=== PATIENT | male | born 1945 | race Caucasian/White ===

== ENCOUNTER 2017-02-05 01:39 | Day surgery (SDC) | payer MEDICARE ==
[~2017-02-05] VITALS: Ht 170.2 cm; Wt 55.2 kg
[2017-02-05] VITALS (9 sets, daily range): BP systolic 89–108; BP diastolic 56–66; PULSE 63–82; RESP 14–18; O2SAT 97–99
[~2017-02-05 01:39] MED LIST: CALC0.257 PO; LABE100T4 PO
[2017-02-05] MEDS ORDERED: 0.9% Sodium Chloride 1,000 ML ONE (08:33)
[2017-02-05] MEDS ORDERED: fentaNYL-PF 50 mCg/mL 2 mL Inj ONE (11:08)
[2017-02-05] MEDS ORDERED: Heparin 10,000 Unit/1,000 mL NS Premix IV ONE (11:08)
[2017-02-05] MEDS ORDERED: levoFLOXacin Inj 250 MG in IV Premix 1 EACH IV ONE (11:15)
--- NOTE | 2017-02-05 13:46 | DRSVH ---
PROCEDURE: NEPHROSTOMY TUBE EXCHANGE INDICATIONS: Ureteral obstruction TECHNIQUE: Informed, written consent from the patient was obtained prior to the procedure. Patient wa s brought to the angiography suite, and conscious sedation was administered intravenously by [facility] staff, while continuous cardiorespiratory monitoring was performed. Maximal sterile barrier t echnique, hand hygiene, skin preparation, and sterile ultrasound technique (if ultrasound was utilize d) was followed. A mask, sterile gown, sterile gloves, a large sterile sheet, hand hygiene, and 2% ch lorhexidine or iodine was utilized for skin antisepsis. The left nephrostomy and surrounding skin wer e prepped and draped sterilely. Contrast was injected into the nephrostomy catheter, which was exchan ged over a J-wire for a new 8 [place] pigtail catheter. Catheter was then fastened to the skin surface . FLUOROSCOPY TIME: 1 minutes COMPARISON: [facility], CT, CT CHEST ABD PELVIS W CON, 02/01/2017, 11:09. FINDINGS: Bilateral ureteral stents are present. Contrast injected into the left nephrostomy flows i nto the urinary bladder. At the conclusion of the procedure, the left nephrostomy pigtail is within t he renal pelvis. IMPRESSION: 1. Left nephrostomy exchange as described above. 2. Functional left ureteral stent. Dictated by: Gerardo De La Cruz M.D. on 02/05/2017 at 13:41 Approved by: Gerardo De La Cruz M.D. on 02/05/2017 at 13:45
--- NOTE | 2017-02-05 13:51 | NUR ---
PATIENT'S NEPHROSTOMY TUBE FLUSHED WITH 10CC NS.PT HAS DONE THIS BEFORE SO HE IS KNOWLEDGEABLE IN DOING THIS. SUPPLIES GIVEN TO PATIENT AND RX FOR STAYFIX DRESSING AND NEPHROSTOMY DRAINAGE BAG FAXED TO APPROPRIATE PHARMACIES. DISCHARGE INSTRUCTIONS REVIEWED WITH PT AND SPOUSE.
[2017-03-04] MEDS ORDERED: ATEZ1200 IV (09:56)
== END 2017-02-05 23:59 | disposition home or self-care (01) ==
LOC: SOUO 01:39
PROVIDERS: ATTEND Radiology Diagnostic Radiology
DX: Z43.6 Encounter for attention to other artificial openings of urinary tract (principal); N13.5 Crossing vessel and stricture of ureter without hydronephrosis; C67.9 Malignant neoplasm of bladder, unspecified; Z87.891 Personal history of nicotine dependence
CPT/HCPCS: 50435; 75984; 99152; C1729; C1769; J1644; J2250; J3010; Q9967

== ENCOUNTER 2017-03-17 18:50 | Inpatient (IN) | payer MEDICARE ==
[~2017-03-17] VITALS: Ht 170.2 cm; Wt 56.9 kg
[~2017-03-17 18:50] MED LIST changes: +ATEZ1200 IV; +Ketamine 10 mg/mL 20 mL Inj ONE; +Propofol 10,000 mCg/mL 20 mL Inj ONE; +Succinylcholine Chloride 20 mg/mL 5 mL Inj ONE; +fentaNYL-PF 50 mCg/mL 2 mL Inj ONE
[2017-03-17 18:57] VITALS: BP 104/62; PULSE 89; RESP 18; O2SAT 99
--- NOTE | 2017-03-17 19:15 | ED.REPORT ---
HPI-General Illness Date of Service Mar 17, 2017 ED Provider: Dr. Allen. 72 y/o male with a hx of bladder cancer (s/p removal of the tumor) and HTN presents to the ED complaining of abd pain and melena, onset 3 days ago. Associated sx include chest pain which radiates to his back and has been constant for a few months and right shoulder pain which makes it difficult for him to move his arm. Pt denies vomiting, hematemesis and is not on any blood thinners. Pt has not taken pepto-bismol. Nursing Notes Stated Complaint: POSSIBLE INTERNAL BLEEDING Chief Complaint: Male Abdominal Pain Nursing Notes Reviewed: Yes Allergies: Coded Allergies: Cephalosporins (Verified Allergy, Intermediate, Hives, 03/17/17) Penicillins (Verified Allergy, Intermediate, Nausea,Vomiting, 03/17/17) "MAKES HIM SICK", ABDOMINAL PAIN Scheduled Aspirin/Acetaminophen/Caffeine (Wevdrfx-Slwbrqrceozan-Plfp Tab) 250 Mg-250 Mg- 65 Mg Tablet 2 TABLET PO BIDWM Atezolizumab (Tecentriq) 1,200 Mg/20 Ml (60 Mg/Ml) Vial 1,200 MG IV q3w Calcitriol (Rocaltrol) 0.25 Mcg Capsule 0.25 MCG PO Q48 Dexamethasone (Dexamethasone) 4 Mg Tablet 4 MG PO DAILYWM Labetalol (Labetalol) 100 Mg Tablet 50 MG PO BID General Time Seen by MD: 19:14 Chief Complaint Abdominal pain Hx Obtained From: Patient Arrived By: Walk-in Sudden in Onset?: Yes Onset Occurred: 3 days ago Symptom Duration: Since onset Location: : Abdomen Quality: Painful Radiation: : Does not radiate Severity: Current: Moderate Severity: Maximum: Moderate Recent Healthcare: Recent doctor visit Past Medical History Past Medical History Notes: PCP: [facility] Rangel Past Medical History history of bladder cancer in 2009, s/p removal of the tumor Reports: Hypertension Past Surgical History removal of bladder tumor in 2009 bilateral urostomy secondary to obstructive uropathy Reports: Inguinal hernia repair Smoking History Former Smoker Social History Other Social History: Good social support, , Local resident Ambulatory Status Independent Review of Systems Full Review of Systems Constitutional: Reports: Weakness - generalized Respiratory: Reports: Shortness of breath Cardiovascular: Reports: Chest pain GI: Reports: Abdominal pain, Melena, Denies: Hematochezia, Vomiting Musculoskeletal: Reports: Joint pain (Right shoulder pain. ) Complete sys rev & neg: except as marked. Physical Exam Vital Signs Vital Signs Date Time Temp Pulse Resp B/P Pulse Ox O2 Delivery O2 Flow Rate FiO2 03/17/17 18:57 36.6 89 18 104/62 99 Room Air Initial VS: Reviewed Head / Eyes: Atraumatic, Normocephalic, PERRL ENT: Mucous membranes moist, Conjunctiva normal, No scleral icterus Neck: Supple, Full range of motion Cardiovascular: Regular rate & rhythm, Heart sounds normal, Intact distal pulses Extremities: Vascular intact, Neuro intact, No swelling, No tenderness Skin: Warm, Dry, No cyanosis Neurologic: Alert, Oriented, Nonfocal Psychiatric: Mood/affect normal, Behavior normal, Normal thought content General/Constitutional: Awake, Alert, Cooperative Appearance / Presentation: Positive: Cachectic, Frail Respiratory / Chest: Breath sounds NL, Breath sounds = bilat, No respiratory distress Right chest wall tenderness Abdomen: Atraumatic, Soft Diffuse tenderness nephrostomy tube Back: Atraumatic, Full range of motion Upper Extremities Upper Extremity / MS: Atraumatic, Full range of motion Painful with movement of R shoulder and tender to touch. Lower Extremity / Pelvis / MS: Atraumatic, Full range of motion, No edema Male Genitourinary: Atraumatic Pt has a nephrostomy tube. Rectal for Blood: Positive: Blood - occult heme +, Melena present (black stool) Interpretation & Diagnostics Lab Results Interpretation Result Diagram: 03/17/17203503/17/171929 Test 03/17/17 19:30 03/17/17 20:36 03/17/17 22:15 White Blood Count 9.6th/mm3 (3.8-10.1) Red Blood Count 3.43mil/mm3 (4.40-5.80) Mean Corpuscular Volume 91.3fL (81-100) Mean Corpuscular Hemoglobin 26.2pg (27.0-35.0) Mean Corpuscular Hemoglobin Concent 28.8% (32.0-37.0) Red Cell Distribution Width 20.9% (12.3-15.4) Platelet Count 334bil/L (150-400) Neutrophils (%) (Auto) 96.7% (40-74) Lymphocytes (%) (Auto) 1.8% (14-46) Monocytes (%) (Auto) 1.3% (4-12) Eosinophils (%) (Auto) 0% (0-5) Basophils (%) (Auto) 0% (0-3) Prothrombin Time 10.3sec (8.1-12.5) Prothromb Time International Ratio 0.96ratio Sodium Level 136mEq/L (134-144) Potassium Level 4.7mEq/L (3.5-5.2) Chloride Level 98mEq/L (97-108) Carbon Dioxide Level 21mmol/L (18-29) Blood Urea Nitrogen 50mg/dL (8-27) Creatinine 1.61mg/dL (0.76-1.27) Estimat Glomerular Filtration Rate 45mL/min (>59) Glucose Level 257mg/dL (60-99) Calcium Level 9.9mg/dL (8.5-10.1) Magnesium Level 2.1mg/dL (1.6-2.6) Total Bilirubin 0.2mg/dL (0.0-1.2) Aspartate Amino Transf (AST/SGOT) 13U/L (0-50) Alanine Aminotransferase (ALT/SGPT) 9U/L (0-44) Alkaline Phosphatase 159U/L (25-160) Troponin T 0.017ug/L (0.0-0.011) Pro-B-Type Natriuretic Peptide 756.1pg/mL (0-376) Total Protein 6.4g/dL (6.4-8.4) Albumin 3.3g/dL (3.4-5.0) Lipase 19U/L (13-60) Hold Lopez Top Tube Received (Received) Hemoglobin 7.2g/dL (13.8-17.2) Hematocrit 25.4% (41.0-50.0) Hold Urine Received (Received) ECG Interpretation ECG Interpretation: Sinus Rhythm non specific ST changes and low voltage. Rate 57. Time: 20:14 Interpreted by: ED physician ECG Interpretation: Sinus Rhythm non specific ST changes and low voltage. Rate 57. Time: 20:28 Interpreted by: ED physician X-Ray Chest Interpretation Chest Xray Interpretation: IMPRESSION: 1. Small nodular opacity in the left apex measuring approximately 1 cm. The finding is nonspecific but new from the prior study. The differential includes confluent bony structures as well as neoplasm or atypical infection. Recommended a repeat PA and lateral study when clinically feasible. Dictated by: Mikhail Harris M.D. on 03/17/2017 at 20:08 Approved by: Mikhail Harris M.D. on 03/17/2017 at 20:10 View: Portable, 1 view Interpretation / Wet Read by: Interpret - Radiologist CT Chest Interpretation IMPRESSION: 1. Moderate amount of pneumoperitoneum within the visualized upper abdomen consistent with viscus perforation. This may be secondary to a perforated mass in the region of the gastric antrum. Recommend further evaluation with dedicated abdominal CT. 2. No evidence of pulmonary embolism. 3. Increase in size of multiple bilateral pulmonary nodules consistent with progression of metastatic disease. 4. Progression of osseous metastatic disease most prominent within the upper thoracic spine and associated mild endplate compression fractures of T2. Findings discussed with Dr. Reeder on 03/17/17 at 10 PM. Dictated by: Mikhail Harris M.D. on 03/17/2017 at 21:57 Study type: CT pulm angiogram Interpretation / Wet Read by: Interpret - Radiologist Re-Eval/Medical Decision Med Decision/Clinical Course Initially reported having melena with a a low hemoglobin, initiated transfusion while in the ER and plan on admission however patient had paroxysmal right shoulder pain with shortness of breath that seem debilitating and was concerning of pulmonary embolism, which ultimately showed perforated viscous. Patient will be admitted and taken to the operating room. IV meropenum given Source of Hx: Family Time of Eval: 20:14 Re-Evaluation/Progress Note: Reckeched pt and informed them of the plan to admit. Pt and his family understand and agree with the plan. Time of Eval: 20:30 Re-Evaluation/Progress Note: Pt writhing on the bed complaining of severe R shoulder pain. Repeat ekg is unchanged. Added a CT angio of his chest. Time of Eval: 21:02 Re-Evaluation/Progress Note: Pt consented for blood transfusion. Time of Eval: 21:08 Re-Evaluation/Progress Note: Pt rechecked. Pt reports increased shoulder pain and SOB. Ordered pain meds. Time of Eval: 22:11 Re-Evaluation/Progress Note: Rechecked pt who feels better after the pain meds. Discussed lab, CT and X-ray results. Discussed code status with pt and family. He is full code. Informed pt of need for admission. Pt and his family understand and agree with plan for admission.All questions addressed. Consultation #1: Referral / Consult Name: Edin Montgomery MD Call Returned at: 20:47 Note: Dr. Montgomery GI, agrees with the eval and will see the pt in the morning. Consultation #2: Referral / Consult Name: Sherman Duron MD Consulted With: Surgeon Call Returned at: 22:25 Cutter Aluminum Sheet: Agrees with eval Note: Updated pt's imaging. Consultation #3: Referral / Consult Name: Kalyani Armenta DO Consulted With: Hospitalist Call Returned at: 23:19 Cutter Aluminum Sheet: Will see patient, Agrees with eval, Agrees with plan, Accepts admit Counseled Regarding: Diagnosis, Lab results, Need for admission Discharge & Departure Primary Impression: Perforated viscus Disposition: ADMITTED TO HOSPITAL Discharge Condition All VS Reviewed: Yes Referrals: Ben Ferrari MD (PCP) Crit Care Except Billable Proc Time Spent: 75-104 minutes Services Performed: Patient management by me, Time spent at bedside, Reviewing test results, Reviewing imaging, Discussing patient care, Documentation in record, Time with fam/surrogate Critical Care Notes: See MDM Scribe Attestation Portions of this note were transcribed by Mandi Brice and Yuly Magallon. I, personally performed the history, physical exam and medical decision-making;I reviewed and confirmed the accuracy of the information in the transcribed note. Signed by Mandi Brice and Yuly Magallon, Scribe. 03/17/17 4504. copies to: Ben Ferrari MD, Timothy S DO Mar 17, 2017 19:15 Mandi Brice Mar 17, 2017 19:31 Yuly Magallon Mar 17, 2017 22:55
[2017-03-17] MEDS ORDERED: 0.9% Sodium Chloride 1,000 ML IV ONE (19:31)
[2017-03-17] MEDS ORDERED: Pantoprazole 4 mg/mL 10 mL Inj IVPUSH ONE (19:35)
[2017-03-17] MEDS ORDERED: Pantoprazole Inj 80 MG, Pharmacy To Mix 1 EA in 0.9% Sodium Chloride 80 ML IV ONE ×2 (19:35)
[2017-03-17] MEDS ORDERED: Ondansetron 2 mg/mL 2 mL Inj IVPUSH PRN (19:50)
[2017-03-17 19:59] LABS: BASOPHILS % (AUTO) 0 % (0-3); EOSINOPHILS % (AUTO) 0 % (0-5); Mean Corpuscular Volume 91.3 fL (81-100)
[2017-03-17 20:02] LABS: MONOCYTES % (AUTO) 1.3 % (4-12); Mean Corpuscular Hemoglobin 26.2 pg (27.0-35.0); NEUTROPHILS % (AUTO) 96.7 % (40-74); Platelet Count 334 bil/L (150-400)
--- NOTE | 2017-03-17 20:12 | DRSVH ---
PROCEDURE: X-RAY CHEST ONE VIEW, PORTABLE ([id number]) INDICATIONS: chest pain TECHNIQUE: One view of the chest was acquired. COMPARISON: [facility], , CHEST 1 VIEW, 03/08/2010, 14:22. FINDINGS: Surgical changes and devices: None. Lungs and pleura: No pleural effusions or pneumothorax. There is a skin fold projecting over the ri ght hemithorax laterally. There is a small nodular opacity in the left apex measuring approximately 1 cm. No acute consolidation elsewhere. Mediastinum: Mediastinal contours appear normal. Heart size is normal. Bones and chest wall: No suspicious bony lesions. Overlying soft tissues appear unremarkable. IMPRESSION: 1. Small nodular opacity in the left apex measuring approximately 1 cm. The finding is nonspecific but new from the prior study. The differential includes confluent bony structures as well as neoplas m or atypical infection. Recommended a repeat PA and lateral study when clinically feasible. Dictated by: Mikhail Harris M.D. on 03/17/2017 at 20:08 Approved by: Mikhail Harris M.D. on 03/17/2017 at 20:10
[2017-03-17 20:16] LABS: INR 0.96 ratio
[2017-03-17 20:20] LABS: Magnesium 2.1 mg/dL (1.6-2.6)
[2017-03-17] MEDS: 0.9% Sodium Chloride 1,000 ML IV SCH (21:15)
[2017-03-17] MEDS ORDERED: Meropenem Inj 1,000 MG in IV Premix 1 EACH IV ONE (22:05)
[2017-03-17] MEDS ORDERED: Meropenem Inj 1,000 MG in 0.9% Sodium Chloride 100 ML IV ONE (22:09)
--- NOTE | 2017-03-17 22:12 | DRSVH ---
PROCEDURE: CT ANGIO CHEST PULMONARY EMBOLISM ([id number]) INDICATIONS: Chest pain and bladder cancer. TECHNIQUE: After the administration of intravenous contrast, 2 mm thick sections acquired from the pulmonary api ayah to the posterior costophrenic angles. 3-dimensional maximum intensity projection (MIP) coronal a nd sagittal reformats were then acquired through the thorax. For radiation dose reduction, the follo wing was used: automated exposure control, adjustment of mA and/or kV according to patient size. COMPARISON: [facility], CT, CT CHEST ABD PELVIS W CON, 02/01/2017, 11:09. FINDINGS: Image quality: Excellent. Pulmonary arteries: Pulmonary arteries are normal in size, and demonstrate no intraluminal filling d efects to suggest central pulmonary embolism. Lungs and pleura: There are multiple bilateral pulmonary nodules with an upper lobe predominance whic h appear increased in size compared to the prior study. A access services representative nodule in the left apex devang sures up to 1.1 cm compared to 0.9 cm previously. There is also a access services representative nodule in the left lower lobe measuring up to 1.6 cm compared to 1.2 cm previously. No acute consolidation. No pleural effusions or pneumothorax. Central and peripheral airways are patent. Mediastinum: Heart size is normal, but a small pericardial effusion. No mediastinal or hilar adenop athy. Thoracic aorta is normal in caliber and enhancement. Esophagus is normal in caliber, without hiatal hernia. Bones and chest wall: There are multiple lytic osseous lesions redemonstrated including throughout t he thoracic spine but most prominent at T1-T3. There are associated mild endplate compression fractu res at T2. No retropulsed bony fragments. Findings are increased compared to the prior study. Thyr oid gland is partially visualized with no discrete nodule identified. No axillary or supraclavicular adenopathy. Abdomen: Visualized upper abdomen demonstrates a moderate amount of pneumoperitoneum. There is soft tissue thickening in the region of the gastric antrum which is not well valuated given the arterial phase of imaging and absence of oral contrast. IMPRESSION: 1. Moderate amount of pneumoperitoneum within the visualized upper abdomen consistent with viscus pe rforation. This may be secondary to a perforated mass in the region of the gastric antrum. Recommen d further evaluation with dedicated abdominal CT. 2. No evidence of pulmonary embolism. 3. Increase in size of multiple bilateral pulmonary nodules consistent with progression of metastati c disease. 4. Progression of osseous metastatic disease most prominent within the upper thoracic spine and asso ciated mild endplate compression fractures of T2. Findings discussed with Dr. Reeder on 03/17/17 at 10 PM. Dictated by: Mikhail Harris M.D. on 03/17/2017 at 21:57 Approved by: Mikhail Harris M.D. on 03/17/2017 at 22:10
[2017-03-17] MEDS ORDERED: DXM4T PO (22:55)
[2017-03-17] MEDS ORDERED: ASPI-1148 PO (22:55)
[2017-03-18] VITALS (14 sets, daily range): BP systolic 88–105; BP diastolic 59–80; PULSE 84–108; RESP 11–18; O2SAT 94–100
--- NOTE | 2017-03-18 00:11 | CONS ---
[address] [address] CONSULTATION REPORT PATIENT: MARTIN MARIN : 1945 MR#: [id number] ADMIT: 03/17/2017 JOB ID: [id number] DATE OF SERVICE: 03/17/2017 CHIEF COMPLAINT: Likely perforated viscus. HISTORY OF PRESENT ILLNESS: The patient is a 72-year-old male with metastatic bladder cancer who is receiving immunotherapy, who presented to the emergency department today on the advice of his oncologist due to 2-3 day history of black stools. The patient's history dates back to bladder cancer back in 2009 with recurrence in 2015, and since then has been undergoing chemoradiation since May 2016 and now he is on immunotherapy. Despite his treatment there has been progression of disease with metastatic disease to his lung and bone. The patient was given steroids for the past two weeks to help with his appetite. The patient has lost approximately 40 pounds since 2016 and his BMI is now 17. The patient denies any nausea, vomiting or hematemesis. He has not been eating well, but he has been having upper abdominal pain for the past several days and also bilateral shoulder pains for the past couple of months. Workup in the emergency department included a CT scan of the chest that demonstrated moderate pneumoperitoneum. The patient has undergone a CT scan of the abdomen and pelvis, however, the results are still pending at this time. I was contacted by the emergency department physician for evaluation. PAST MEDICAL HISTORY: Bilateral nephrostomy tubes with now just the left one still in place, bladder cancer resection in 2009, and a ventral hernia repair at the same time, hypertension, chemoradiation for the recurrent bladder cancer and immunotherapy. MEDICATIONS AT HOME: Include: 1. Aspirin. 2. Tecentriq. 3. Rocaltrol. 4. Decadron 4 mg. 5. Labetalol. ALLERGIES: 1. PENICILLIN. 2. CEPHALOSPORIN. SOCIAL HISTORY: The patient is . He has been to his for 52 years. He has a son and a daughter. They live on [address]. He is a nonsmoker. FAMILY HISTORY: Positive for bladder cancer. REVIEW OF SYSTEMS: Positive for the upper abdominal pain, shoulder pain and the black stool for the past several days. PHYSICAL EXAMINATION: The patient is currently on the emergency department gurney, in some distress due to the abdominal pain. Temperature 36.6, blood pressure 104/62, pulse is 89, respirations 18. Head is normocephalic, atraumatic. There is no scleral icterus. Neck is supple. Heart is in regular rate. Lungs are clear. Abdomen is not distended. It is not tender in the lower quadrants, however, tender in the epigastric and left subcostal area. Extremities do show some clubbing of his fingertips. Neurologically, patient is awake and alert, and was able to answer some questions. He appears thin and emaciated. LABORATORY EXAMINATION: Showed a white blood count of 9.6, hematocrit 31.3, which went down to 25.4, and platelet count is 334. Sodium was 136, potassium 4.7, creatinine 1.61, glucose was 257, total bilirubin of 0.2, lipase of 19. INR is 0.961. ASSESSMENT: This is an unfortunate 72-year-old male with progressive metastatic bladder cancer who has pneumoperitoneum consistent with a perforated viscus. Discussion with the patient and his in terms of proceeding to surgery or choosing conservative care or palliative care. I believe they have made a decision to proceed to surgery. I will await for the reading of the CT scan of the abdomen and pelvis. I will plan on doing an upper endoscopy and a laparotomy tonight. The patient will be started on IV antibiotics. Patient's postop mortality and complication risk is high and prognosis is poor. EARL
[2017-03-18] MEDS ORDERED: Ondansetron 2 mg/mL 2 mL Inj IVPUSH PRN (02:40)
[2017-03-18] MEDS ORDERED: Propofol 10,000 mCg/mL 100 mL Inj ONE (02:59)
[2017-03-18] MEDS ORDERED: fentaNYL 2,500 mCg/250 mL Premix IV ONE (02:59)
[2017-03-18] MEDS ORDERED: Acetaminophen IV 1,000 MG in IV Premix 1 EACH IV PRN (03:00)
[2017-03-18] MEDS ORDERED: Polyethylene Glycol (PEG) 17 Gm Powder PO PRN (03:00)
[2017-03-18] MEDS ORDERED: Senna-Docusate 8.6-50 mg Tablet PO PRN (03:00)
[2017-03-18] MEDS ORDERED: Alum-Mag Hydrox-Simeth 30 mL Suspension PO PRN (03:00)
--- NOTE | 2017-03-18 03:00 | NUR ---
Admit: Pt admitted from OR post-op closure of gastric perf. Pt's vital signs stable. Left a-line present, inserted in OR. Pt has midline incision, drsg which is c/d/i with left abd LIZY drain. LIZY drain is draining serosanquineous fluid. Pt also has a prexisting left posterior nephrostomy tube, draining cloudy, foul smelling urine. Pt is very cachectic but no open areas noted. PIV x1 with new IV started in right AC. Will continue to monitor pt closely.
[2017-03-18] MEDS: fentaNYL 2,500 mCg/250 mL 2,500 MCG in IV Premix 1 EACH IV SCH (03:05)
[2017-03-18] MEDS: Propofol Inj 1,000,000 MCG in IV Premix 1 EACH IV SCH (03:05)
--- NOTE | 2017-03-18 03:13 | OP ---
[address] [address] OPERATIVE REPORT PATIENT: MARTIN MARIN : 1945 MR#: [id number] ADMIT: 03/17/2017 JOB ID: [id number] DATE OF SURGERY: 03/18/2017 SURGEON: Sherman Duron MD. EXTENSION SERVICE SPECIALIST IN CHARGE: Megan Anderson ANESTHESIA: General. PREOPERATIVE DIAGNOSIS(ES): Perforated viscus. POSTOPERATIVE DIAGNOSIS(ES): Perforated distal gastric ulcer. OPERATIVE PROCEDURE: An esophagogastroduodenoscopy, laparotomy, patch closure of gastric perforation. INDICATION FOR PROCEDURE: The patient is a 72-year-old male with metastatic bladder cancer who has pneumoperitoneum. PRINCIPAL FINDING: From the EGD there was a large ulcer visualized at the distal stomach. I was not sure if this was in the antrum or in the pylorus, however from the laparotomy it was a distal gastric perforation anteriorly and this was closed using a Branden patch technique. PROCEDURE COURSE: The patient was brought to the operating table and was provided with general endotracheal anesthesia. The patient had received IV antibiotics from the emergency room. The patient was provided with SCDs. A time-out was performed. We started with the upper endoscopy. The endoscope was then passed through the patient's oropharynx and into the esophagus and into the stomach. Copious retained fluid was aspirated. There is no obvious fundic lesions in the body of the stomach. Advancing towards the antrum I was able to visualize a large ulcer that appeared white and I was not able to decipher if I have an actual opening to the peritoneal cavity. I was able to pass the scope through the pylorus, into the duodenum, which appeared to be normal. The scope was then retracted from the patient, and patient was then positioned for laparotomy. A time-out again was performed. The patient's abdomen was prepped and draped in the usual sterile fashion. Next, an upper midline incision was made using the scalpel and subcutaneous tissue was entered using electrocautery. The peritoneum was entered without incident. Next inspection shows that there was an obvious anterior perforation at the distal stomach in the prepyloric region. I was able to mobilize a piece of omentum and using 3 interrupted Vicryl sutures I tacked this piece of omentum onto the perforated site. This was secured in place using the Vicryl suture. Next, copious irrigation was carried out from the right upper quadrant and also from the left upper quadrant. There was a lot of whitish fibrinous exudate that was able to be extracted. Inspection of the pelvis shows that there was not much spillage. After copious irrigation, we decided to place a Logan-Chambers drain. This was introduced through the left upper quadrant abdominal wall and placed across the body of the stomach and going into the right upper quadrant adjacent to the liver. The drain was secured in place using a nylon suture. Next, the upper midline fascia was then reapproximated using a running 0-PDS suture. Next, the subcu was then irrigated and the skin was closed using an absorbable suture. Steri-Strips and sterile dressing was then placed over the wound. By the end of procedure, needle counts, and sponge counts were correct. The patient will remain intubated and be taken to the Intensive Care Unit. EARL
[2017-03-18 03:20] LABS: BASOPHILS % (AUTO) 0.1 % (0-3); EOSINOPHILS % (AUTO) 0 % (0-5); MONOCYTES % (AUTO) 4.8 % (4-12); Mean Corpuscular Hemoglobin 27.4 pg (27.0-35.0); Mean Corpuscular Volume 87.4 fL (81-100); NEUTROPHILS % (AUTO) 93.1 % (40-74); Platelet Count 323 bil/L (150-400)
[2017-03-18] MEDS: 0.9% Sodium Chloride 1,000 ML IV SCH ×5 (03:29→18:58)
[2017-03-18 04:23] LABS: Magnesium 1.8 mg/dL (1.6-2.6); Phosphorus 3.8 mg/dL (2.5-4.9)
--- NOTE | 2017-03-18 04:36 | ABG ---
DateTimeAnalyzed 04:32:00 -_ pH ____7.363 - 7.350 7.450 pCO2 ___37.9__ -mmHg 35.0 45.0 pO2 149 -mmHg 69.0 116 HCO3- ___21.0__ -mmol/L 22.0 26.0 ABE ___-3.4__ -mmol/L -2.0 2.0 tHb ___13.4__ -g/dL O2Hb ___97.2__ -% COHb ____1.3__ -% MetHb ____0.9__ -% sO2 ___99.4__ -% FIO2 ___60.0__ -% PRVC 418 - PEEP ____5.0__ -cmH2O Set_RR ___15.0__ -b/min Vt __400.0__ -L Drawn By RB - Spontaneous_RR ___15.0__ -b/min Oxygen Device 1 VENTILATOR - Notified By RB - Notified Whom Judith R, RN - B 760 -mmHg tO2 ___18.6__ -Vol% Ian test N/A -
--- NOTE | 2017-03-18 04:54 | PCM.HPMED ---
Subjective Date of Service Mar 18, 2017 Primary Provider: Admitting Physician: Kalyani Armenta DO Primary Care Physician: Ben Ferrari MD Attending Physician: Kalyani Armenta DO Admit Status: Critical Care Chief Complaint: Abdominal pain, melena, chest pain History of Present Illness: Mr. 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 Evaluation in the ED with stat imaging revealed that he had a perforated viscus that required emergent intervention. He was admitted to CCU for evaluation and treatment of perforated distal gastric ulcer status post EGD, exploratory laparotomy with patch closure. Hospital day 1, postop day 0, ventilator day one. Mr. Fields was initially seen in the ED, and was experiencing a significant amount of pain and discomfort, and was unable to answer many questions. and family were present at that time, and were discussing the possibility of proceeding with surgical intervention to correct his perforated viscus. The noted that she and her had not discussed whether or not he would wish to remain on a ventilator for a prolonged period of time. After much consideration and discussion with the anesthesiologist and surgeon, the family and patient elected to proceed with the emergent procedure. At time of initial evaluation, the patient was quite uncomfortable in his bed and unable to keep focused to answer many questions. Family present was notably upset over the current conditions and need for emergent procedure. Initial documentation indicated that the patient had been experiencing dark stools and increased abdominal pain over the recent days leading to admission. He has an extensive history of malignancy, which is followed by Dr. Atkins, [facility] oncology, with most recent visit dated 03/04/17. Documentation within [facility] also indicate the patient has lost a significant amount of weight, approximately 20% loss within the most recent 4 months. In the ED, temperature 36.6, pulse 89, respiratory rate 18, blood pressure 104/ 62, 99% on room air; initial lab work revealed white count of 9.6 with 97% neutrophils, hemoglobin 9.0 which was later found to be 7.2 approximately 1 hour after initial draw; creatinine 1.61, glucose 257, albumin 3.3; troponin 0.017. He received meropenem, as he has an allergy to penicillins and cephalosporins. This was continued. Stat CT of the chest revealed moderate amount of pneumoperitoneum within the visualized upper abdomen, consistent with viscus perforation. 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 Stat abdomen and pelvis CT was also obtained, the final report pending. Operative report dated 03/18/2017 shows that an EGD visualized a large ulcer in the distal stomach which had perforated, and was closed with Branden patch technique. During the procedure, patient did not require any additional pressor agents to maintain blood pressure. He was stable throughout. He was transferred to CCU in stable condition intubated and sedated without any additional pressor requirements. Review of Systems: Could not be obtained; currently intubated and sedated Allergies Coded Allergies: Cephalosporins (Verified Allergy, Intermediate, Hives, 03/17/17) Penicillins (Verified Allergy, Intermediate, Nausea,Vomiting, 03/17/17) "MAKES HIM SICK", ABDOMINAL PAIN Home Medications Aspirin/Acetaminophen/Caffeine (Zkpgdue-Xdobsygbmzoad-Nmbs Tab) 250 Mg-250 Mg- 65 Mg Tablet 2 TABLET PO BIDWM Atezolizumab (Tecentriq) 1,200 Mg/20 Ml (60 Mg/Ml) Vial 1,200 MG IV q3w Calcitriol (Rocaltrol) 0.25 Mcg Capsule 0.25 MCG PO Q48 Dexamethasone (Dexamethasone) 4 Mg Tablet 4 MG PO DAILYWM Labetalol (Labetalol) 100 Mg Tablet 50 MG PO BID Could not be verified with patient, as he is intubated and sedated. Med rec will need to be completed. PMH Transitional cell carcinoma of the urinary bladder status post tumor removal with associated pulmonary metastases Hypertension Complicated urinary tract infection Surgical History Left inguinal hernia repair Nephrostomy tube placement on left with ureteral stent Family History Per documentation: Mother had sudden at age 75, father of "old age" at age 93. No reported family history of cancer Social History Occupation: retired Hx Alcohol Use: No Hx Substance Use: No Hx Tobacco Use: Yes Smoking Status: Former Smoker (quit greater than 10 years ago) Living Arrangement: with Family (local, with ) Exam Vital Signs Vital Sign - Last Date Time Temp Pulse Resp B/P Pulse Ox O2 Delivery O2 Flow Rate FiO2 03/17/17 18:57 36.6 89 18 104/62 99 Room Air Intake and Output 03/17/17 03/17/17 03/18/17 Cumulative From/Thru 15:00 23:00 07:00 03/17/17 18:57 - 03/18/17 00:00 Intake Total 1000 ml 1000 ml 2000 ml Balance 1000 ml 1000 ml 2000 ml Intake IV Total 1000 ml 1000 ml 2000 ml Exam General: Intubated and sedated; no acute distress; cachectic HEENT: Atraumatic, temporal wasting, sclera anicteric, ETT in place with OG tube Cardiac: Tachycardic at time of examination with rate approximately 110 bpm, no murmur appreciated Chest: Significantly thinned with the rib prominence Respiratory: Adequate airflow all brown, R > L faint coarse sounds appreciated Abdomen: Soft, bandage in place over vertical incision which is clean, dry and intact; coloration of chlorhexidine prep; abdominal drain in place and secured; nephrostomy tube and bag attachment also in place and secured Extremities: Spontaneous movement of all 4 extremities as sedation was wearing off upon transport to room; radial pulses equal and intact; thin Skin: Warm and dry : No Pavon Neuro: Unable to assess secondary to sedation Psych: Unable to assess secondary to sedation Lab and Diagnostics Result Diagram: 03/17/17203503/17/171929 Assessment & Plan Mr. 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 Evaluation in the ED with stat imaging revealed that he had a perforated viscus that required emergent intervention. He was admitted to CCU for evaluation and treatment of perforated distal gastric ulcer status post EGD, exploratory laparotomy with patch closure. Hospital day 1, postop day 0, ventilator day one. Perforated gastric ulcer status post exploratory laparotomy, washout, Branden patch application, and drain placement, acute, present on admission. Under therapy - Postop day 0; tolerated procedure well without complications - Drain in place - Surgery is following; appreciate time and recommendations for continued care - Continued meropenem secondary to allergies to cephalosporins and penicillins; tolerated in ED well, ID consult by AM team - MRSA swab pending - Blood cultures pending - PCT in am Acute hypoxemic respiratory failure, not present on admission. Ongoing - Patient was saturating well on room air at time of admission, but unable to be weaned off ventilator postoperatively - It was decided for patient safety that he remain intubated postoperatively for transfer to CCU - We will defer plan for extubation to pulmonary team - Consult for pulmonary team placed; please contact team in morning for verbal report Acute anemia status post 2U pRBC, present on admission. Monitor - On admit: Hb 9.0, decreased to 7.2; received 2 units packed red blood cells prior to OR - Repeat hemoglobin: 13.3 postoperatively - Monitor and transfuse as needed Severe protein calorie malnutrition, chronic. Ongoing - On admit: BMI 17 - Dietary consultation Left nephrostomy tube and ureteral stent placement, chronic. Presumed stable - No Pavon in place as patient has nephrostomy tube - Monitor output Chronic kidney failure. Presumed stable - On admit: Cr 1.61; repeat postop 1.28 - Monitor Goals of care. - Patient has terminal illness - He is currently intubated and sedated - Family was upset ED about severity of his illness, and stated that they had never spoken with patient about ventilation and complications of his illness that could be dire - Palliative care consult for goals of care discussion, POLST completion - Polisher Brass referral as well - DVT: SCDs only at this time as patient was actively bleeding earlier - GI: PPI - Diet: Nothing by mouth at this time; dietary consult placed - PRN: Ear/bowel/pain/antiemetic - CODE STATUS: Full code at this time Patient status: Due to severity of presenting symptoms, risk of adverse events, and likely course of care, anticipated length of stay exceeds to midnight; patient is admitted as inpatient with CCU status Pain Evaluation: Adequate Pain Control GI Prophylaxis: Proton Pump Inhibitor VTE Prophylaxis: SCDs Resuscitation Status: CPR: Attempt Resuscitation Attending Statement The patient was seen and examined together with house staff on 03/18/2017 and I agree with the history, exam and plan as outlined in the note above. Meenakshi Boland DO Mar 18, 2017 03:09 Kalyani Armenta DO Mar 18, 2017 06:29
[2017-03-18] MEDS: Chlorhexidine 0.12% 15 mL Oral Solution MT SCH ×5 (05:12→19:54)
[2017-03-18] MEDS ORDERED: Pantoprazole 4 mg/mL 10 mL Inj IVPUSH SCH (07:30)
[2017-03-18] MEDS ORDERED: Sodium Bicarb (50 mEq) 8.4% 1 mEq/mL 50 mL Syringe IVPUSH ONE (07:35)
--- NOTE | 2017-03-18 09:10 | DRSVH ---
PROCEDURE: CT ABDOMEN AND PELVIS WITHOUT CONTRAST ([id number]) INDICATIONS: pneumoperitoneum TECHNIQUE: After the administration of oral contrast, 5 mm thick sections acquired from the diaphragms to the sy mphysis. 5 mm coronal and sagittal reformats were performed. For radiation dose reduction, the foll owing was used: automated exposure control, adjustment of mA and/or kV according to patient size. COMPARISON: [facility], CT, CT CHEST ABD PELVIS W CON, 02/01/2017, 11:09. [facility], CT, CT ANGIO CHEST PE, 03/17/2017, 21:32. Outside Film, CT, CT ABD PELVIS WO CON, 05/14/2016 , 13:17. FINDINGS: Image quality: Excellent. ABDOMEN: Lung bases: Lung bases are clear. Heart size is normal. Solid organs: Liver and spleen are normal in size. Gallbladder is normal. Pancreas is normal in si ze. No adrenal nodules. There is a percutaneous nephrostomy on the left. In addition, there are todd ateral ureteral stents. Both kidneys are normal in size. There is mild left renal pelviectasis. Excr eted contrast is present in the renal collecting system bilaterally. Peritoneum and bowel: There is moderate pneumoperitoneum with free air around liver and left upper a bdomen. Stomach is distended. Small ball loops and colon loops contain no oral contrast and demonstra te normal wall thickness and caliber. A large amount of stool throughout the colon. Nodes and vessels: There is a 2.6 x 2.2 cm aortocaval lymph node, and smaller para-aortic lymph node on the left measuring up to 1.8 cm, suspicious for metastases. Aorta and inferior vena cava are norm al in size. There is severe atherosclerosis. There is intimal displacement and distal aorta suggesti ng a small focal dissection. Miscellaneous: No ventral hernias. PELVIS: Genitourinary: Bladder is irregular and thickened consistent with bladder neoplasm.. Miscellaneous: No inguinal hernias or adenopathy. Bones: There are lytic bone lesions involving T1 and T2 vertebral bodies, as well as right iliac bone consistent with metastasis. No vertebral body compression fractures. IMPRESSION: 1. Moderate amount of free peritoneal air in the upper abdomen consistent with viscus perforation. Th e site of perforation is not definitively visualized. The most likely cause of perfusion is gastric o r duodenal ulcer. 2. Retroperitoneal adenopathy consistent with metastasis. 3. The regular appearance of bladder compatible with neoplasm. 4. Bilateral ureter stents. There is a left percutaneous nephrostomy. Mild left pelviectasis. 5. Lytic metastasis involving lumbar spine and right hemipelvis. 6. Extensive atherosclerosis. There is intimal displacement and distal abdominal aorta suspicious for focal dissection. 7. A large amount of stool in colon. Dictated by: Jade Zurita M.D. on 03/18/2017 at 8:48 Approved by: Jade Zurita M.D. on 03/18/2017 at 9:09
--- NOTE | 2017-03-18 09:26 | PCM.PNSURG ---
Subjective Date of Service: Mar 18, 2017 Date of Service: Mar 18, 2017 Visit Information: Reason for Visit Perforated Viscus,Gi Bleed,Anemia,Cancer Surgery/Surgery Date Post-Op Day # Date of Admission: Mar 17, 2017 at 22:54 Hospital Day # Subjective: Mr. Bradly Fields was lying in bed, intubated. Patient alert, responds to questions of pain with a shake of his head, hands in soft restrains. Objective Vital Sign- Last 8 Hours Date Time Temp Pulse Resp B/P Pulse Ox O2 Delivery O2 Flow Rate FiO2 03/18/17 07:40 108 95/68 97 40 03/18/17 04:30 36.6 108 15 88/63 99 Mechanical Ventilator 60 03/18/17 04:30 Ventilator 03/18/17 03:15 94 100 Intake and Output- Last 8 Hour 03/18/17 Cumulative From/Thru 07:00 03/17/17 18:57 - 03/18/17 06:29 Intake Total 1410 ml 2410 ml Output Total 555 ml 555 ml Balance 855 ml 1855 ml Intake IV Total 1410 ml 2410 ml Output Urine Total 525 ml 525 ml Gastric Drainage Total 0 ml 0 ml Drainage Total 30 ml 30 ml # Bowel Movements 0 0 General: Alert, Cooperative, No Acute Distress Lungs: Clear to Auscultation, Normal Air Movement, Other (intubated) Heart: Exam Unremarkable, Regular Rate/Rhythm Abdomen: Soft, Appropriately tender, Other (bertrand drain and nephrostomy tubes intact. ) Result Diagram: 03/18/17 0300 03/18/17 0300 Assessment & Plan Impression Status post Day #1 esophagogastroduodenoscopy, laparotomy, patch closure of gastric perforation. Problems: Plan The patient is a 72-year-old male with metastatic bladder cancer who has pneumoperitoneum, status post day #1 laparotomy and patch closure of gastric perforation. Patients pain well controlled. BERTRAND drain 30 cc serosanguineous fluid, does not appear to be gastric contents. Monitor BERTRAND drain for change in fluid ie.. gastric contents. This may represent omental patch failure and may need surgical intervention. WBC elevated this morning, most likely reactive following surgical intervention. Continue Abx - meropenem. Continue PPI. Currently Intubated. Fentanyl at 50 mcg /hr, propofol at 5 mcg/kg/min. ICU/Pulm team managing vent/bicarb ggt/fentanyl and propofol. Plan for SBT today. VTE Prophylaxis: SCDs Resuscitation Status: CPR: Attempt Resuscitation Attending Statement: I agree with Dr. Jerry's assessment and plan. GIORGI JERRY DO Mar 18, 2017 09:26 Sherman Duron MD Mar 20, 2017 17:37
--- NOTE | 2017-03-18 09:50 | DRSVH ---
PROCEDURE: X-RAY CHEST ONE VIEW, PORTABLE ([id number]) INDICATIONS: f/u ETT TECHNIQUE: One view of the chest was acquired. COMPARISON: [facility], CT, CT ANGIO CHEST PE, 03/17/2017, 21:32. [facility] , CR, XR CHEST 1VW (PORTABLE), 03/17/2017, 19:42. FINDINGS: Surgical changes and devices: Endotracheal tube tip projects 7.0 cm above the mariya. Nasogastric tu be present tip traverse the GE junction. Surgical drain projected over the right upper quadrant. Lungs and pleura: Nodular opacity is seen involving the left upper lobe and there's been interval dev elopment of airspace opacity within the mid left lung and left upper lobe. Streaky opacity of the me dial left lung base likely related to subsegmental atelectasis. No pneumothorax is present. Mediastinum: Mediastinal contours appear normal. Heart size is normal. Bones and chest wall: No suspicious bony lesions. Overlying soft tissues appear unremarkable. IMPRESSION: 1. Support lines and tubes as above. 2. Abnormal airspace opacity within the mid left lung and left upper lobe consistent with aspiration versus pneumonia. 3. Scattered nodules are better seen on CT, suspicious for metastatic disease. 4. Streaky opacity within the medial left lung base likely related to subsegmental atelectasis. Dictated by: Nathaniel CHAVIRAA Interpreted: Jade Zurita MD on 03/18/2017 at 9:46 Transcribed by: ADEEL on 03/18/2017 at 9:50 Approved by: Jade Zurita M.D. on 03/18/2017 at 10:27
--- NOTE | 2017-03-18 10:21 | NUR ---
NUTRITION ASSESSMENT: ASSESS: Pt is a 72yo M admitted to CCU for perforated viscus that required emergent intervention. He is POD 1 for closure of gastric perf. Currently vented. Per CCU rounds, sedation is off and plan for SBT today. Of note, pt has history of bladder ca and has experienced ~18.5% wt loss x4 months= significant. Palliative care is involved for goals of care. PMHX: Bladder ca, s/p tumor removal w/pul mets, HTN, UTI LABS: Reviewed. CO2 17, Bun 43, Cocoa Room Operator 1.28, Glu 154, Alb 2.6 MEDS: Reviewed. NaCl, morphine GI: 0 BM SKIN: Piero 11, pt with visible muscle/fat loss CURRENT WTS: 46.4kg, BMI 16.0kg/m2, UBW ~57kg, 18.5% wt loss x 4 mo= significant DIET: NPO EST. NEEDS: vent/ surgery/ wt Kcals: 1020-1160kcal/day (22-25kcal/kg) Pro: 80-100g/day (1.2-1.5g/kg) Fluids: ~1160ml/day (25ml/kg) NUTRITION DIAGNOSIS: 1.) Severe pro/kcal malnutrition related to chronic disease as evidence by pt with 18.5% wt lossx4 months and visible fat/muscle loss 2.) Altered GI function related to gastric perf as evidence by need for NPO diet order and emergent surgery. 3.) Inadequate oral intake related to decreased ability to consume sufficient energy as evidenced by current NPO status NUTRITION INTERVENTION: 1.) Will monitor for GI function to return. If pt requires prolonged NPO status and GI function is not returning, due to poor nutritional status pt would benefit from TPN. Pt is at high risk for re-feeding due to chronic disease and recent wt loss. Recommend start at 85g Dex, 40g AA and 10g lipids to provide 549kcal and 40g pro (~50% estimated needs). Monitor closely for signs of re-feeding 2.) If tolerated and GI continues to not be functional, recommend advance to goal of 170g Dex, 80g AA and 25g lipids to provide 1148kcal and 80g pro (100% estimated needs) 3.) Will continue to monitor NPO/vent status. MONITOR / EVAL: vent/npo, GI, wt, labs, POC, nutrition status. Will continue to monitor per high nutrition risk guidelines Addendum: 03/18/17 at [address] Briefly spoke with Surgery and Resident this afternoon. They reported that GI tract is functional and that trophic TF can be started on pt tomorrow, 03/19, after gastrografin study. Recommend start trophic TF of Vital 1.5 @ 10ml/hr and hold until okay per MD to advance. Recommend monitor labs/tolerance closely for signs of re-feeding as pt has had severe wt loss. If TF is tolerated and okay per MD to advance, recommend advance by 10ml q 12 hrs until reach goal rate of 35ml/hr. TF at goal will provide 1155kcal and 51.5g pro (100% kcal and 65% pro needs.). Recommend add 1 packet prosource TID once TF is well tolerated at goal to better meet protein needs.
[2017-03-18] MEDS: Meropenem Inj 2,000 MG in 0.9% Sodium Chloride 100 ML IV SCH (11:20)
--- NOTE | 2017-03-18 11:28 | NUR ---
Palliative care note FCTM D/A: Palliative care consult request received from Dr. Boland on 03/18/17 for Goals of Care conversation. Dr. Lopez has arranged for 1:00 pm [facility] for today. Dr. Lopez and this worker to attend. P: Palliative care to follow. Judith MARTINEZ, [facility]
--- NOTE | 2017-03-18 11:35 | NUR ---
Palliative Care Palliative Care received order from Dr Gonzales Boland 03/18/17 to assist with goals of care. Patient is a 72 year old man with metastatic bladder cancer. He was admitted 03/17/17. Palliative Care saw patient several times during an admission in April 2016. Patient lives home with . Cora Fields () [phone], Luis Choi (daughter) [phone] Palliative Care will have a FCTM today at 1 p.m. [place] Leon
--- NOTE | 2017-03-18 14:29 | NUR ---
Social Work: Screen D: Per EMR review, pt is a 72 year old male admitted for perforated viscus, GI Bled, Anemia, Cancer. Pt is Medicare with [employer] supplement. PCP is Henry Ferrari MD. NOK is Cora Fields, . Advanced directives requested by bedside RN during admission. Readmit score not entered at this time. Pt is currently vented and sedated. Palliative care has met with the family to discuss pt's prognosis and goals of care. They are considering hospice and would like the evening to think about this option. Case Management will await this information before proceeding with initial assessment and further discharge planning. A: Pt lives on Wednesday with his . He is I with ADLs at baseline. Pt is followed by oncology MD for metastatic cancer. P: Evolving; YARD RIGGER to follow up with pt's clinical course and palliative care discussions about goals of care before proceeding with discharge planning and further assessment. BONY Ayala
--- NOTE | 2017-03-18 14:36 | PCM.CONPAL ---
Date of Service Mar 18, 2017 Date of Hospital Admission: Mar 17, 2017 at 22:54 Date of Palliative Consult: Mar 18, 2017 Requesting Provider: Meenakshi Boland DO Reason Palliative Care Consult: Goals of Care Discussion, Hospice Referral & Discussion Hospital Unit @time of consult: Critical Care Palliative Care Recommendation Summary of palliative recommendations: -Symptom management (Pain/other) Pain-most likely due to his metastatic ds in spine with comp fx. Weakness profound Perforated gastric ulcer-may have predated the decadron but the med was probably a component. Metastatic bladder CA-progressing despite treatment. Daughter knows this. His will wait for Dr. Atkins to review this. Disposition- he will want to go home and hopefully if appropriate with hospice unless Dr. Atkins feels otherwise/if more treatments likely to benefit etc. If hospice isn't engaged now family would still be interested in the future. -DPOA/Advanced Directives/POLST-DPOAHC is his . Code status- now is full code but is intubated at present. Tomorrow-consider addressing code status when I hope he is extubated and after they review scans with Dr. Atkins.His needs to hear about disease progression from Dr. Atkins. His daughter could here it in our meeting -Family/emotional support-Concern for his who could benefit from spiritual as well as bereavement support -Spiritual support-for his Patient Goals: 1. Patient wants to be told the truth about his/her illness, even if it is unpleasant. 2. Patient would like to be told prognosis when it can be predicted, to better guide treatment decisions. His daughter feels that he is getting tired of this and has mentioned wanting it to end but difficult time talking about it. 3. Patient would choose quality of life over quantity of life, and defines quality as active and independent-His family does not think his QOL is good or that it is likely to improve in the near future. 4. Patient would request that comfort care take priority over cognitive/mental confusion. Additional Medical Diagnoses with primary management by Hospitalist team include : Respiratory insuff- on vent support perforated gastric ulcer-surg following cachexia Problems: End of Life Preferences FULL CODE- but this needs addressing after they meet with Dr. Atkins Disposition hope is for home Resuscitation Status Resuscitation Status: CPR: Attempt Resuscitation POLST Updates/Changes Previous POLST?: No Pt History History of Present Illness PALLIATIVE CARE CONSULTATION requesting provider-Dr. Gonzales Boland Surgeon Dr. Winston Duron Oncologist Dr. Norma Atkins PCP Dr. Ferrari Hx taken from chart and in conference with his - Cora and daughter Luis since pt is intubated. 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 He has started to loose weight and "go down hill" since Aug when it was noted that he had a bladder recurrence. He now has known involvement of his bone with a T2 compression fx and of his LN's and lungs. These seem to have progressed despite starting immunotx. as per scan. He developed upper back pain radiating to both shoulders-R>L about 1 month ago without known trauma.He became weaker in the past few weeks with with N,V and black stool in the past week. He had increasing pain and finally agreed to ER visit with note of free air-EGD noting ulcer with perforation. He underwent surgery last veronika to manage. Of note is he has been on decadron since 03/04/17. His family notes weight loss of 40 #- a majority of that in the past few months.His states she has tried not to think of his deterioration but has worked to get their will completed etc. They have a meeting with Dr. Atkins tomorrow AM. 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 No reported family history of cancer Social History Occupation: retired Hx Alcohol Use: No Hx Substance Use: No Hx Tobacco Use: Yes Smoking Status: Former Smoker (quit greater than 10 years ago) Living Arrangement: with Family (local, with and son who is between jobs Social History Occupation: retired Family Members Issues: lost a son to suicide 1991-?bipolar. living on [place] with his and son, daughter lives locally Spiritual Support Spiritual Support per his he is not confucianist but she is-but not involved with a taoism Responsive Patient Symptoms Pain (maximium): Moderate Tiredness/Fatigue: Moderate Nausea: Moderate Depression: Moderate Anorexia: Moderate Palliative Performance Scale PPS Ambulation: Reduced (walking with walker) PPS Activity: Unable to do any work PPS Self-Care: Occasional assistance necessary PPS Intake: Normal or reduced PPS Conscious Level: Full Allergy Allergies Reviewed: Yes Medications Current Medications: Current Medications Morphine Sulfate 2 mg Q15M PRN IVPUSH Last administered on 03/17/17 23:50; Admin Dose 2 MG; Start 03/17/17 at 19:50 Ondansetron HCl 4 mg 4 mg Q15M PRN IVPUSH Last administered on 03/17/17 20:12 ; Admin Dose 4 MG; Start 03/17/17 at 19:50; Stop 03/18/17 at 02:57; Status DC Sodium Chloride 1,000 ml @ 100 mls/hr Q10H IV Last administered on 03/18/17 00 :00; Start 03/17/17 at 21:15; Stop 03/18/17 at 09:12; Status DC Heparin Sodium (Porcine) 5,000 unit Q8 SUBQ; Start 03/18/17 at 16:30 Ondansetron HCl Start with 4 mg and if ... Q4H PRN IVPUSH; Start 03/18/17 at 02 :40; Stop 03/18/17 at 09:12; Status DC Sodium Chloride 1,000 ml @ 125 mls/hr Q8H IV Last administered on 03/18/17 11: 19; Admin Dose 125 MLS/HR; Start 03/18/17 at 02:58 Ondansetron HCl 4 to 8 mg Q4H PRN IVPUSH; Start 03/18/17 at 03:00 Acetaminophen/ Premix 100 ml @ 400 mls/hr Q6H PRN IV; Start 03/18/17 at 03:00 ; Stop 03/19/17 at 03:01 Senna 2 tablet BID PRN PO; Start 03/18/17 at 03:00 Al Hydrox/Mg Hydrox/Simethicone 30 ml Q6 PRN PO; Start 03/18/17 at 03:00 Polyethylene Glycol 17 gm DAILY PRN PO; Start 03/18/17 at 03:00 Chlorhexidine Gluconate 5 ml 5 ml Q4 MT Last administered on 03/18/17 12:17; Admin Dose 5 ML; Start 03/18/17 at 04:30 Propofol [id number] mcg/Premix 100 ml @ 1.56 mls/hr Q24H IV; Start 03/18/17 at 03: 05 Fentanyl 2500 mcg/ Premix 250 ml @ 5 mls/hr Q24H IV; Start 03/18/17 at 03:05 Meropenem/Sodium Chloride 100 ml @ 33.333 mls/ hr Q12H IV Last administered on 03/18/17 11:20; Admin Dose 33.333 MLS/HR; Start 03/18/17 at 11:00 Pantoprazole 40 mg DAILYAC IVPUSH Last administered on 03/18/17 08:00; Admin Dose 40 MG; Start 03/18/17 at 07:30; Stop 03/18/17 at 09:11; Status DC Pantoprazole 40 mg BIDAC IVPUSH; Start 03/18/17 at 16:30 Scheduled Aspirin/Acetaminophen/Caffeine (Jrntntd-Zbasmpsotakvn-Syhc Tab) 250 Mg-250 Mg- 65 Mg Tablet 2 TABLET PO BIDWM Atezolizumab (Tecentriq) 1,200 Mg/20 Ml (60 Mg/Ml) Vial 1,200 MG IV q3w Calcitriol (Rocaltrol) 0.25 Mcg Capsule 0.25 MCG PO Q48 Dexamethasone (Dexamethasone) 4 Mg Tablet 4 MG PO DAILYWM Labetalol (Labetalol) 100 Mg Tablet 50 MG PO BID Objective Findings Exam Vital Sign - Last Date Time Temp Pulse Resp B/P Pulse Ox O2 Delivery O2 Flow Rate FiO2 03/18/17 12:30 36.8 101 15 89/59 99 03/18/17 12:26 28 03/18/17 08:30 Ventilator Intake and Output 03/17/17 03/17/17 03/18/17 Cumulative From/Thru 15:00 23:00 07:00 03/17/17 18:57 - 03/18/17 06:29 Intake Total 1000 ml 1410 ml 2410 ml Output Total 555 ml 555 ml Balance 1000 ml 855 ml 1855 ml Intake IV Total 1000 ml 1410 ml 2410 ml Output Urine Total 525 ml 525 ml Gastric Drainage Total 0 ml 0 ml Drainage Total 30 ml 30 ml # Bowel Movements 0 0 Objective on vent-sedated cachectic, looks much older than age General: Minimally responsive Heart: Regular Rate/Rhythm Abdomen: Other (scaphoid) Extremities: No Edema, Edema Lab/Diagnostics Lab and Imaging results reviewed in detail in EMR. mild anemia, CR 1.28, acidosis with HCO3 17 Patient/Family Conference Members Present Family Members Present Cora and daughter Luis Medical Team Members Present? Ilda PO[facility], Judith LOVETT [facility] Discussion/Goals of Care Discussion FAMILY UNDERSTANDING OF DISEASE: Daughter has good grasp of severity of illness and the progression of weight loss and debility over past few months His knows it but is having a hard time accepting it. She is financially dependent on him. She has been thinking through her options going forward WRT finances etc. She does have assistance with her son for CG. She doesn't want to acknowledge that he has lost so much in the last few months and degree of weakness. DISEASE PROGRESSION/EVIDENCE OF DECLINE: SYMPTOM BURDEN: Has been profound the past month-suspect back pain due to comp fx. GOALS: Daughter is interested in hospice for father due to financial benefit re med coverage HOPES/WORRIES: His is concerned she will need [place]. FAMILY WISHES/VALUES: Do you want to be told truth about his illness, even if unpleasant? Yes Does family want to know prognosis when it can be predicted, to better guide treatment decisions? His daughter thinks he has <2months if keeping on this course Palliative Care counselled: Time spent Total time 70 minutes; >50% face to face with patient and/or family, providing counselling regarding plans and recommendations, and in care coordination with his/her medical teams. Majority of this was discussion with his and daughter regarding EOL discussion etc I also spent an additional [ ] minutes counseling for advanced care planning with the patient/the patients family/the surrogate decision maker. copies to: Ben Ferrari MD; Gregory Atkins MD, Deborah A MD Mar 18, 2017 14:36
--- NOTE | 2017-03-18 14:58 | PCM.PNMED ---
Subjective Date of Service Mar 18, 2017 Subjective PULMONARY / CRITICAL CARE CONSULTATION Reason for consult: Asked by yellow team hospitalist, Dr. Sherman to manage ventilator, extubation and hemodynamic support Note: history obtained from reports and family since patient is currently intubated. Mr. Fields is a 72 year old gentleman with recurrent T4 transitional cell carcinoma of the urinary bladder, s/p chemoradiation with 5-FU, with kajal involvement and progressive metastases to lungs, who presented to [facility] ED after a three-day history of increasing abdominal pain and melena, with associated chest pain and radiation to his back. Patient was recently started on Decadron. Evaluation in the ED with stat imaging revealed that he had a perforated viscus that required emergent intervention. Stat CT of the chest revealed moderate amount of pneumoperitoneum within the visualized upper abdomen, consistent with viscus perforation. Operative report of 03/18/2017 shows that an EGD visualized a large ulcer in the distal stomach which had perforated, and was closed with Branden patch technique. During the procedure, patient did not require any additional pressor agents to maintain blood pressure. He was transferred to CCU in stable condition intubated and sedated without any additional pressor requirements. Review of Systems Could not be obtained; currently intubated and sedated Past Medical History Mr. Fields has an extensive history of malignancy, which is followed by Dr. Atkins, [facility] oncology, with most recent visit dated 03/04/17. Documentation within [facility] also indicate the patient has lost a significant amount of weight, approximately 20% loss within the most recent 4 months. 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 No reported family history of cancer Social History Denies alcohol use, substance use Former smoker (quit greater than 10 years ago) Lives with . Exam Vital Signs Vital Sign - Last Date Time Temp Pulse Resp B/P Pulse Ox O2 Delivery O2 Flow Rate FiO2 03/18/17 12:30 36.8 101 15 89/59 99 03/18/17 12:26 28 03/18/17 08:30 Ventilator Intake and Output 03/17/17 03/17/17 03/18/17 Cumulative From/Thru 15:00 23:00 07:00 03/17/17 18:57 - 03/18/17 06:29 Intake Total 1000 ml 1410 ml 2410 ml Output Total 555 ml 555 ml Balance 1000 ml 855 ml 1855 ml Intake IV Total 1000 ml 1410 ml 2410 ml Output Urine Total 525 ml 525 ml Gastric Drainage Total 0 ml 0 ml Drainage Total 30 ml 30 ml # Bowel Movements 0 0 Exam General: Intubated; no acute distress; cachectic; nods his head appropriately and is very alert HEENT: Atraumatic, temporal wasting, sclera anicteric, ETT in place with OG tube Cardiac: Tachycardic at time of examination with rate 95 bpm, no murmur appreciated Chest: Significantly thinned with the rib prominence Respiratory: Adequate airflow all brown, B/L faint coarse sounds appreciated Abdomen: Soft, bandage in place over vertical incision which is clean, dry and intact; abdominal drain in place and secured; nephrostomy tube and bag attachment also in place and secured Extremities: Spontaneous movement of all 4 extremities ,radial pulses equal and intact; no edema Skin: Warm and dry, no skin breakdown Neuro: EOMI IVs and Medications Medications Reviewed: Medications were reviewed in detail Lab and Diagnostics Result Diagram: 03/18/17 0300 03/18/17 0300 Assessment & Plan Problem list: 1. Acute hypoxic respiratory failure 2. Perforated gastric ulcer status post exploratory laparotomy, Branden patch application, and drain placement 3. Severe malnutrition, BMI 16.0 4. Carcinoma of the urinary bladder s/p chemoradiation 5-FU, stage 4 5. Acute anemia s/p 2U pRBC (03/17/17) 6. Left nephrostomy tube and ureteral stent placement 2009 7. Acute on chronic kidney failure 8. Goals of care Mr. Feilds is a 72-year-old gentleman with recurrent T4 transitional cell carcinoma of the urinary bladder, s/p chemoradiation with 5-FU, with kajal involvement and progressive metastases to lungs, who was admitted to CCU still intubated after treatment of perforated distal gastric ulcer with laparotomy with patch closure. Hospital day 2, postop day 1, ventilator day two (03/18/17). Respiratory: Patient intubated and ventilated, saturating well on 28% FiO2, PEEP 5. Patient is severely deconditioned and cachectic. He failed two breathing trials today with episodes of apnea. Otherwise, he is alert and has a cuff leak. Will continue breathing trials Infectious: Do not believe patient has an active infection. Patient is afebrile. WBC mildly elevated likely secondary to surgery. BP stable although low. Procalcitonin 1.03. CV: Not on pressors. Blood pressure stable 80s-110s over 60s-70s. Heme: Normocytic, normochromic anemia. s/p 2 units of pRBC on 03/18/17. Stable post surgical repair of perforated ulcer. Dr. Atkins is the oncologist managing the bladder cancer. Metabolic: Anion gap metabolic acidosis, gave bicarb. Changing vent setting to help with cO2. Causes: acute on chronic renal failure, severe malnutrition, postop day 1. Alimentary: s/p gastric ulcer repair -- postop day 1. Gastrografin swallow study through NG tube tomorrow to visualize stomach. Start trophic feeding if no leak. Neuro: Patient is alert and follows commands. Psych: Palliative care involved for goals of care, symptom management, family and spiritual support, POLST GI Prophylaxis: Proton Pump Inhibitor VTE Prophylaxis: SCDs VTE Mechanical Devices: Intermittant Pneumatic CD Resuscitation Status: CPR: Attempt Resuscitation Attending Statement [facility] Addendum: Above note reviewed, Pt.seen and examined. 72 yr old male with known metastatic bladder CA with recurrence in 2016. Now admitted for perforated viscus, s/p exp.lap , found to have perforated Gastric ulcer. now s/p repair, on vent for ventilatory support for operative purposes, unable to extubate secondary to decreased ventilatory drive secondary to use of sedatives and narcotics. Now appears bit more awake, will give SBT in AM and possible extubation in the morning. 45 min of CCT provided in Pt. care. Pallavi Giron MD Pulm/Anu Henry DO Mar 18, 2017 14:58 Pallavi Giron MD Mar 18, 2017 17:18 Left nephrostomy tube and ureteral stent placement, chronic. Presumed stable - No Pavon in place as patient has nephrostomy tube - Monitor output Chronic kidney failure. Presumed stable - On admit: Cr 1.61; repeat postop 1.28 - Monitor Goals of care. - Patient has terminal illness - He is currently intubated and sedated - Family was upset ED about severity of his illness, and stated that they had never spoken with patient about ventilation and complications of his illness that could be dire - Palliative care consult for goals of care discussion, POLST completion - Casualty Insurance Claim Adjuster referral as well - DVT: SCDs only at this time as patient was actively bleeding earlier - GI: PPI - Diet: Nothing by mouth at this time; dietary consult placed - PRN: Ear/bowel/pain/antiemetic - CODE STATUS: Full code at this time Patient status: Due to severity of presenting symptoms, risk of adverse events, and likely course of care, anticipated length of stay exceeds to midnight; patient is admitted as inpatient with CCU status GI Prophylaxis: Proton Pump Inhibitor VTE Prophylaxis: SCDs VTE Mechanical Devices: Intermittant Pneumatic CD Resuscitation Status: CPR: Attempt Resuscitation Anu Arroyo DO Mar 18, 2017 14:58
--- NOTE | 2017-03-18 15:27 | NUR ---
P: Respiratory Distress I: Pt did not breath well on PST. Pt remains on the vent. Propofol and fentanyl gtt off since 0730 this am. Pt denies pain. Pt alert and responds appropriately. Palliative care met with family. Abdominal incision with small old drainage. LIZY patent and draining 30cc of serous fluid. Nephrostomy tube drained 250cc of green tinted urine. Turned Q 2 hours. Wound care here and pt does not have skin breakdown. Sacrum and bilateral hips with mepilex placed to assist in padding bony prominences. NPO. OGT to LCS and draining dark brown fluid. NS 125cc/hr per peripheral line without redness or swelling at the site. Saline lock patent. E: Stable S: Restraints on for pt safety. Frequent rounding. Family at bedside.
--- NOTE | 2017-03-18 15:47 | NUR ---
Wound Care Pressure ulcer protocol received, pt seen at bedside for assessment. frail and emaciated 72 yo male intubated,restrained on ccu bed. S/P endoscopic procedure 03/17 for perforated distal gastric ulcer, med Hx significant for metastatic bladder cancer. Skin assessment reveals no pressure related skin injuries at this time,as patient is so thin mepilex adhesive foam dressings were placed preventively at his sacrum and bilateral hips. Patient is on an appropriate surface and needs frequent repositioning. Foam pads can be changed PRN.
--- NOTE | 2017-03-18 15:54 | NUR ---
Palliative care note [facility] D/A: Met with pt spouse Cora, dtr Luis (JUAREZ), Dr. Lopez and this worker. All are aware that pt health is declining but spouse is praying for intervention to assist with pt possible recovery. Dtr indicates privately that she is worried about spouse longer term, once pt expires as couple is extremely close, high school sweethearts who have been since 1963. Luis lives in the area, works at local [employer] and is understanding that while pt may be expressing that he wants to live, his body is failing. Spouse continues to hope for more time. Pt son Shaun lives with pt/spouse and is of help at this time. Note that there was another son (Abilio? John Paul?) who in 1991 and this appears to be a painful memory for this family, cause of may have been a suicide. Spouse indicates that pt has always enjoyed being active, working in his shop and his independence. If he is not able to do this things, he would rather as his quality of life will be poor. Spouse is spiritual and would appreciate a visit from Duyen in pastoral care. Have left a message for Duyen. Pt does not have Medicare Part D and meds have at times been an issue. 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 Couple completed a will with their [place] workers compensation attorney on the morning of their trip into acute care ( 03/17/17) Luis has talked to pt spouse about Hospice and she is in favor of this service, if it is the time to consider no further treatments. Discuss that spouse and family will be meeting with Dr. Atkins on morning of 03/19/17 for further information about pt prognosis. This worker has tentatively arranged for [facility] info visit for 03/19/17 at 1:00. This worker will need to inform spouse about this plan on Wednesday03/19/17 after PC provider discusses plan with Dr. Atkins. [facility] visit can be cancelled if not appropriate. Family is aware of [facility]. Pt currently on vent and expected to be in acute care for some time. P: Palliative care to follow. Judith MARTINEZ, [facility]
--- NOTE | 2017-03-18 16:06 | PROG NOTE ---
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 He received chemoradiation with radiosensitizing 5-fluorouracil, completed in June 2016. Subsequent imaging showed evidence of tumor progression in the bladder as well as lung metastases. Cystoscopy confirmed recurrent transitional cell carcinoma. He recently began immunotherapy with atezolizumab. He is clinically declining, rapidly losing weight. He has been on about two weeks of oral dexamethasone as an appetite stimulant. He presented last night with increased abdominal pain. CT imaging on March 17, 2017 showed a moderate pneumoperitoneum within the upper abdomen consistent with viscous perforation. He had numerous pulmonary nodules which have progressed in size. There is also progression of osseous metastatic disease within the upper thoracic spine and endplate compression fracture of T2. He was taken emergently to surgery by Dr. Sherman Duron early this morning. He underwent laparotomy with patch closure of gastric perforation. He is currently intubated, but able to shake his head yes and no to questions, and appropriately participates in our discussion today. His family met with Dr. Lopez earlier today regarding palliative care. He would choose quality of life over quantity. OBJECTIVE: Vitals: T 36.8, P 101, R 15, BP 89/59. O2 saturation 98% on 28% FiO2. HEENT: Conjunctivae pink. Mucous membranes moist. No oral lesions. Nodes: No adenopathy in the neck, axilla or groin. Chest: Slightly decreased at the bases. A few scattered crackles. Cardiac examination: Regular rate and rhythm with normal S1, S2. Abdomen: Soft, mildly tender. Decreased bowel tones. Extremities: Muscular wasting. 2+ distal pulses. No calf tenderness. LABORATORIES: WBC 13.8, hemoglobin 13.3, hematocrit 42.5% (after transfusion with 2-3 units packed red blood cells), MCV 87, platelets 323,000. Sodium 140, potassium 4.8, BUN 43, creatinine 1.28, glucose 154. AST 18, ALT 11, alkaline phosphatase 130. PT 10.3, INR 0.96. ASSESSMENT AND PLAN: 1. Recurrent T4 transitional cell carcinoma of the urinary bladder with node involvement and progressive pulmonary and osseous metastases: The patient's current imaging shows progressive lung metastases and increasing bony disease at T2. It appears that his immunotherapy is not controlling tumor burden. We will have an extensive family discussion early tomorrow morning once he is presumably extubated. 2. Gastric perforation: Surgically repaired with a laparoscopic patch. Anticipate that he will be extubated in the near future to allow full involvement in upcoming discussion regarding termination of treatment. MTDD
[2017-03-18] MEDS: Heparin 5,000 Unit/mL Inj SUBQ SCH (17:00)
[2017-03-18] MEDS: Pantoprazole 4 mg/mL 10 mL Inj IVPUSH SCH (17:00)
--- NOTE | 2017-03-18 17:08 | NUR ---
spiritual care: pall care request lengthy conversational visit with Cora, pt's . dtr pablo in room. reflected on personal/family history, her coping and her matter of fact manner as pt faces poor prognosis, but hopefulness about short term care/treatment. pt alert, seeming to follow room conversation. spoke of couples 52 year marriage and changes required by his and her recent health challenges. Pt's expressive of her nilam and welcomed prayer and spiriutal care follow up
[2017-03-19] VITALS (12 sets, daily range): BP systolic 95–113; BP diastolic 55–70; PULSE 70–91; RESP 11–22; O2SAT 97–99
[2017-03-19] MEDS: Heparin 5,000 Unit/mL Inj SUBQ SCH ×3 (00:28→16:59)
[2017-03-19] MEDS: Meropenem Inj 2,000 MG in 0.9% Sodium Chloride 100 ML IV SCH ×3 (00:28→22:51)
[2017-03-19] MEDS: Chlorhexidine 0.12% 15 mL Oral Solution MT SCH ×6 (00:28→20:30)
[2017-03-19] MEDS: fentaNYL 2,500 mCg/250 mL 2,500 MCG in IV Premix 1 EACH IV SCH (03:05)
[2017-03-19] MEDS: Propofol Inj 1,000,000 MCG in IV Premix 1 EACH IV SCH (03:05)
[2017-03-19] MEDS: 0.9% Sodium Chloride 1,000 ML IV SCH ×4 (04:09→22:18)
--- NOTE | 2017-03-19 04:18 | ABG ---
DateTimeAnalyzed 04:14:00 -_ pH ____7.402 - 7.350 7.450 pCO2 ___35.7__ -mmHg 35.0 45.0 pO2 119 -mmHg 69.0 116 HCO3- ___21.8__ -mmol/L 22.0 26.0 ABE ___-2.0__ -mmol/L -2.0 2.0 tHb ___10.7__ -g/dL O2Hb ___96.5__ -% COHb ____1.6__ -% MetHb ____0.9__ -% sO2 ___99.0__ -% FIO2 ___28.0__ -% PEEP ____5.0__ -cmH2O Set_RR ___15.0__ -b/min Vt __400.0__ -L Drawn By MK - Spontaneous_RR ___15.0__ -b/min Oxygen Device 1 VENTILATOR - B 767 -mmHg tO2 ___14.7__ -Vol%
--- NOTE | 2017-03-19 05:23 | NUR ---
Refusing care, Comfort Patient refuses oral care overnight as well as a bath. Education provided and patient continues to refuse. Patient initially refuses turns but is agreeable to them after some persistent education. Patient not on any sedation, is oriented, cooperative, and pain free.
[2017-03-19] MEDS: Pantoprazole 4 mg/mL 10 mL Inj IVPUSH SCH ×2 (07:25→16:58)
--- NOTE | 2017-03-19 08:06 | NUR ---
Pt extubated at 0800. No complications, bilateral, clear diminished BS. Sat 100% on 3 LNC. No secretions, stridor or labored breathing at this time. HR 62, BP 107/58, RR 16
--- NOTE | 2017-03-19 08:34 | PCM.PNSURG ---
Subjective Date of Service: Mar 19, 2017 Date of Service: Mar 19, 2017 Visit Information: Reason for Visit Perforated Viscus,Gi Bleed,Anemia,Cancer Surgery/Surgery Date Post-Op Day # Date of Admission: Mar 17, 2017 at 22:54 Hospital Day # Subjective: Mr. Bradly Fields was lying in bed, intubated. Patient alert, responds to questions of pain with a shake of his head, hands in soft restrains. Objective Objective General: Alert, Cooperative, No Acute Distress Lungs: Clear to Auscultation, Normal Air Movement, Other (intubated) Heart: Exam Unremarkable, Regular Rate/Rhythm Abdomen: Soft, Appropriately tender, Other (bertrand drain and nephrostomy tubes intact. ) Vital Sign- Last 8 Hours Date Time Temp Pulse Resp B/P Pulse Ox O2 Delivery O2 Flow Rate FiO2 03/19/17 07:11 69 11 103/55 98 25 03/19/17 07:06 65 103/55 97 25 03/19/17 04:22 82 95/61 98 25 03/19/17 04:00 Ventilator 03/19/17 03:58 36.5 91 15 95/61 99 Mechanical Ventilator 03/19/17 00:35 Ventilator 03/19/17 00:34 88 18 106/70 98 Mechanical Ventilator Intake and Output- Last 8 Hour 03/19/17 Cumulative From/Thru 07:00 03/17/17 18:57 - 03/19/17 06:03 Intake Total 1697 ml 5596 ml Output Total 585 ml 1420 ml Balance 1112 ml 4176 ml Intake IV Total 1697 ml 5596 ml Output Urine Total 375 ml 1150 ml Gastric Drainage Total 200 ml 200 ml Drainage Total 10 ml 70 ml # Bowel Movements 0 Result Diagram: 03/18/17 0300 03/18/17 0300 Assessment & Plan Impression Status post Day #2 esophagogastroduodenoscopy, laparotomy, patch closure of gastric perforation. Problems: Plan The patient is a 72-year-old male with metastatic bladder cancer who has pneumoperitoneum, status post day #2 laparotomy and patch closure of gastric perforation. Patients pain well controlled. BERTRAND drain 60 cc serosanguineous fluid yesterday and 10 cc so far today, does not appear to be gastric contents. Monitor BERTRAND drain for change in fluid ie.. gastric contents. This may represent omental patch failure and may need surgical intervention. WBC elevated this morning, most likely reactive following surgical intervention. NG tube continues to put out dark bile/bloody contents, ~200 cc today. Will plan on gastrografin upper GI study today to check for omental leak Continue Abx - meropenem. Continue PPI. Currently Intubated. Fentanyl and propofol is off. ICU/Pulm team managing vent/bicarb ggt/fentanyl and propofol. Failed SBT yesterday, attempting again today. Oncology and palliative following as well, with family meeting today to discuss Goals of Care. VTE Prophylaxis: SCDs Resuscitation Status: CPR: Attempt Resuscitation Attending Statement: I agree with Dr. Jerry's assessment and plan. GIORGI JERRY DO Mar 19, 2017 08:34 Sherman Duron MD March 29, 2017 09:31
[2017-03-19 09:24] LABS: BASOPHILS % (AUTO) 0 % (0-3); EOSINOPHILS % (AUTO) 0 % (0-5); Mean Corpuscular Hemoglobin 27.4 pg (27.0-35.0); NEUTROPHILS % (AUTO) 92.7 % (40-74); Platelet Count 228 bil/L (150-400)
--- NOTE | 2017-03-19 09:26 | PROG NOTE ---
[address] [address] PROGRESS NOTE PATIENT: MARTIN MARIN : 1945 MR#: [id number] ADMIT: 03/17/2017 JOB ID: [id number] DATE: 03/19/2017 SUBJECTIVE: The patient is a 72-year-old gentleman with T4 N1 transitional cell carcinoma of the urinary bladder. He was hospitalized with gastric perforation, for which he underwent laparotomy with patch closure of gastric perforation. Attempts at extubation yesterday were unsuccessful. However, he is quite comfortable, currently on the ventilator with 25% FiO2. He denies any significant pain. No fevers overnight. OBJECTIVE: Vitals: T 36.5, P 65, R 15, BP 103/55, O2 saturation 97% on 45% FiO2. HEENT: Conjunctivae pink. Mucous membranes slightly dry. There is a small amount of blood from his NG tube. Nodes: Shotty adenopathy in the neck. Chest: A few basilar crackles. Cardiac exam: Regular rate and rhythm with normal S1, S2. Abdomen: Soft, mild tenderness following recent surgical procedure. Bowel tones are present. Extremities: No edema. Muscular wasting. 2+ distal pulses. LABORATORIES: None available this morning. ASSESSMENT AND PLAN: 1. Recurrent T4 transitional cell carcinoma of the urinary bladder with node involvement: I reviewed imaging studies. He may have disease progression, but it appears to be relatively minimal, with an increase in size of his nodules between 2 and 4 mm, which could represent an immune response to his cancer following recent initiation of immunotherapy. For now, the patient is not prepared to discontinue treatment. We will discuss this further in the outpatient clinic before he is scheduled for further treatment. 2. Gastric perforation: Day two status post laparotomy with patch closure of gastric perforation. He has a small amount of blood in his nasogastric tube. He will likely be extubated later today, presuming that pulmonary function permits.
--- NOTE | 2017-03-19 10:29 | PCM.HPANE ---
Patient Data Surgeon Admitting Provider:Kalyani Armenta DO Attending Provider:Klayani Armenta DO Primary Care Physician:Ben Ferrari MD Other Provider: Reason for Visit Perforated Viscus,Gi Bleed,Anemia,Cancer Ht/WT & BMI Height (Feet): 5 Height (Inches): 7.00 Weight (Kilograms): 48.500 Body Mass Index 16.06 Allergies Coded Allergies: Cephalosporins (Verified Allergy, Intermediate, Hives, 03/17/17) Penicillins (Verified Allergy, Intermediate, Nausea,Vomiting, 03/17/17) "MAKES HIM SICK", ABDOMINAL PAIN Past Anesthesia History Anesthesia History: Denies:: Abnormal Airway, Anesthesia Reactions, Difficult Intubation Diabetes History Hx Diabetes?: No MRSA MRSA: No Medications Hypertension Medication: Yes Home Meds Incl Beta Chance: Yes Date Beta Chance Taken: Mar 17, 2017 Time Beta Chance Taken: 08:00 Active Scripts Calcitriol (Rocaltrol)0.25 Mcg Capsule0.25 Mcg PO Q48 #20 CAPSULE Prov:Antione Green MD 05/25/16 Reported Medications Aspirin/Acetaminophen/Caffeine (Jcovzew-Fujfrxxivlqsq-Ojne Tab)250 Mg-250 Mg-65 Mg Tablet2 Tablet PO BIDWM 03/17/17 Dexamethasone 4 Mg Tablet4 Mg PO DAILYWM Ref 0 03/17/17 Atezolizumab (Tecentriq)1,200 Mg/20 Ml (60 Mg/Ml) Vial1,200 Mg IV q3w 03/04/17 Labetalol 100 Mg Fcfcyh09 Mg PO BID 02/04/17 History History of ENT Problems?: No HEENT History: Denies:: Abnormal Airway Difficult Intubation Denture Type: Full- Upper Full- Lower Teeth Condition: No Teeth Hx of Heart Problems?: Yes Cardiovascular History: Positive for:: Edema Hypertension Denies:: Cardiac Surgery Chest Pain Congestive Heart Failure Heart Murmur Irregular Heartbeat Pacemaker Thrombophlebitis Hx of Respiratory Problem?: No Respiratory History: Denies:: Asthma Chest Surgery Dyspnea Hemoptysis Pneumonia Tuberculosis Hx Neurologic Problems?: No Neurological History: Denies:: Alzheimer's Disease CVA Dementia Dizziness Headaches Parkinson's Disease Seizures Hx of GI Problems?: No Hx of Problems?: Yes Genitourinary History: Denies:: HX of Hemodialysis Kidney Stones Urinary Tract Infection HX of Peritoneal Dialysis: No Other Pertinent History: KIDNEY FAILURE;UROSTOMY Male Hx: Denies:: Prostate Problems Scrotal Mass Testicular Surgery Hx Musculoskeletal Problems?: No Musculoskeletal History: Positive for:: Degenerative Joint Denies:: Back Injury Joint Replacement Hx of Psycho/Social Problems?: No Hx Surgeries?: Yes (2009) Hx Any Other Health Problems?: Yes Other History: Positive for:: Cancer (Bladder) Hospitalization Denies:: Thyroid Disease History Blood Transfusions: Positive for:: Blood Transfusions Denies:: Blood Transfuse Reaction Hx Diabetes: No Occupation: retired Hx Alcohol Use: NoHx Substance Use: No Smoking Status: Former Smoker (quit greater than 10 years ago) Have You Smoked inLast 12 mo: No Stop/Bang Treated for Sleep Apnea?: No Do You Have a CPAP Machine?: No S-Snoring: Do You Snore Loudly: No T-Tired: feel tired, fatigued: Yes O-Obsered: Observed not breath: No P-Blood Pressure: treated: Yes A- Age over 50: Yes N- Neck Large Circumference: No G- Gender Male: Yes YANELIS Risk Assessment: High Risk, =/>3 Yes YANELIS Category 2: Yes (pt will be intubated postop) Risk Assessment Category Category 1A: Patient has history of documented sleep apnea, and HAS NOT received any narcotic, sedative or anesthesia administration during this stay. Category 1B: Patient has history of documented sleep apnea, and HAS received any narcotic , sedative or anesthesia administration during this stay Category 2: Patient has SUSPECTED Obstructive Sleep Apnea, and HAS received any narcotic , sedative or anesthesia administration during this stay. Category 3: Patient has SUSPECTED Obstructive Sleep Apnea and HAS NOT received narcotic, sedative or anesthesia administration during this stay. Category 4: Outpatient in Procedural Areas with known sleep apnea or who screen positive for High Risk via the STOP/BANG questionnaire. Exam Exam Vital Signs Vital Signs Date Time Temp Pulse Resp B/P Pulse Ox O2 Delivery O2 Flow Rate FiO2 03/19/17 08:30 Supplement Oxygen 03/19/17 08:30 36.6 74 22 104/58 99 Nasal Cannula 2.00 03/19/17 07:11 69 11 103/55 98 25 03/19/17 07:06 65 103/55 97 25 03/19/17 04:22 82 95/61 98 25 03/19/17 04:00 Ventilator 03/19/17 03:58 36.5 91 15 95/61 99 Mechanical Ventilator General Appearance: Alert, Oriented X3, Cooperative, No Acute Distress HEENT/AIRWAY: MP 2 Lungs: Clear to Auscultation, Normal Air Movement, Other (intubated) Heart: Exam Unremarkable, Regular Rate/Rhythm Meds/Labs/Diagnostics Admission Meds Current Medications Heparin Sodium (Porcine) 5000 unit 5,000 unit Q8 SUBQ Last administered on 03/19 07:25; Start 03/18/17 at 16:30 Meropenem/Sodium Chloride (Merrem Inj/ Normal Saline) 100 ml @ 33.333 mls/ hr Q12H IV Last administered on 03/19/17 00:28; Start 03/18/17 at 11:00 Pantoprazole (Protonix Inj) 40 mg BIDAC IVPUSH Last administered on 03/19/17 07:25; Start 03/18/17 at 16:30 Labs Test 03/17/17 19:30 03/17/17 22:15 03/18/17 03:00 03/19/17 09:05 Prothrombin Time 10.3sec (8.1-12.5) Prothromb Time International Ratio 0.96ratio Troponin T 0.017ug/L (0.0-0.011) Pro-B-Type Natriuretic Peptide 756.1pg/mL (0-376) Lipase 19U/L (13-60) Hold Lopez Top Tube Received (Received) Hold Urine Received (Received) Phosphorus Level 3.8mg/dL (2.5-4.9) Magnesium Level 1.8mg/dL (1.6-2.6) Total Bilirubin 0.4mg/dL (0.0-1.2) Aspartate Amino Transf (AST/SGOT) 18U/L (0-50) Alanine Aminotransferase (ALT/SGPT) 11U/L (0-44) Alkaline Phosphatase 130U/L (25-160) Total Protein 4.6g/dL (6.4-8.4) Albumin 2.6g/dL (3.4-5.0) Triglycerides Level 142mg/dL (0-149) Procalcitonin 1.03ng/mL (0.00-0.08) White Blood Count 10.7th/mm3 (3.8-10.1) Red Blood Count 3.91mil/mm3 (4.40-5.80) Hemoglobin 10.7g/dL (13.8-17.2) Hematocrit 35.2% (41.0-50.0) Mean Corpuscular Volume 90.0fL (81-100) Mean Corpuscular Hemoglobin 27.4pg (27.0-35.0) Mean Corpuscular Hemoglobin Concent 30.4% (32.0-37.0) Red Cell Distribution Width 19.2% (12.3-15.4) Platelet Count 228bil/L (150-400) Neutrophils (%) (Auto) 92.7% (40-74) Lymphocytes (%) (Auto) 1.9% (14-46) Monocytes (%) (Auto) 5.0% (4-12) Eosinophils (%) (Auto) 0% (0-5) Basophils (%) (Auto) 0% (0-3) Sodium Level 147mEq/L (134-144) Potassium Level 4.0mEq/L (3.5-5.2) Chloride Level 114mEq/L (97-108) Carbon Dioxide Level 20mmol/L (18-29) Blood Urea Nitrogen 42mg/dL (8-27) Creatinine 1.29mg/dL (0.76-1.27) Estimat Glomerular Filtration Rate 58mL/min (>59) Glucose Level 103mg/dL (60-99) Calcium Level 8.3mg/dL (8.5-10.1) Plan Impression Patient chart reviewed, patient interviewed and anesthestic plan with risks, benefits, and alternatives discussed, and informed consent obtained. ASA Physical Status: ASA4 Life Threatening (Hyperglycemia, pneumoperitoneum, early sepsis, metastatic bladder cancer to lungs and bone) Anesthetic Plan: GA Bene/Risks/Altern/Consents: Yes HP Complete Prior to Induction: Yes Dylan Reyes MD Mar 19, 2017 10:29
--- NOTE | 2017-03-19 10:30 | PCM.ANEP1 ---
Post Anesthesia Phase 1 PACU Phase 1 Assessment Date of Service: Mar 19, 2017 Vital Signs Vital Signs Date Time Temp Pulse Resp B/P Pulse Ox O2 Delivery O2 Flow Rate FiO2 03/19/17 08:30 Supplement Oxygen 03/19/17 08:30 36.6 74 22 104/58 99 Nasal Cannula 2.00 03/19/17 07:11 69 11 103/55 98 25 03/19/17 07:06 65 103/55 97 25 03/19/17 04:22 82 95/61 98 25 03/19/17 04:00 Ventilator 03/19/17 03:58 36.5 91 15 95/61 99 Mechanical Ventilator Anesthetic Administered: GA Level of Alertness: Drowsy, not talking BOWER's with Equal Strength: Yes Pain: No Nausea or Vomiting: No Cardiovascular Function and Hy: Yes Airway Device: Endotrachial Tube Oxygen Delivery: Mechanical Ventilator Lungs: Clear to Auscultation, Normal Air Movement, Other (intubated) Dermatome Level: Full Sensation Complications: No Follow up Care: No Patient Instructions Provided: Yes Dylan Reyes MD Mar 19, 2017 10:30
--- NOTE | 2017-03-19 10:35 | PCM.PALLBR ---
Palliative Care Recommendation Summary of palliative recommendations: -Symptom management (Pain/other) Pain: seems to be in chest wall and upper back, most likely due to his metastatic ds in spine with comp fx. 1. Fentanyl DOCTORATE OF CHIROPRACTIC stopped earlier. 03/19: Started fentanyl 12.5-25mcg IV q 2 hours prn breakthrough pain. RN aware of order placed. Weakness: profound Perforated gastric ulcer: may have predated the decadron but the med was probably a component. Plan is for gastrografin swallow study through NG tube today to visualize stomach per surgery's request. and start trophic feeding if no leak per dietary. Metastatic bladder CA: progressing despite treatment. Daughter understands this. His needs confirmation from Dr. Atkins. (Unfortunately, family did not make it to meeting with Dr. Atkins planned for 7:30a.m. at pt bedside.) DPOA/Advanced Directives/POLST: 1. Code = FULL CODE currently. 2. DPOAHC is his Cora. 03/19: Palliative Care Plan is to address code status after family reviews scans with Dr. Atkins. His needs to hear about disease progression from Dr. Atkins. His daughter Luis present today Dr. Atkins rounded on pt at 730am and family was not there for planned meeting. Unlikely Dr. Atkins will return again today per RN. Dr. Ferrer contacted Dr. Atkins 03/19 and he said he would continue to offer immunotherapy to pt q 3 weeks, if pt and family wanted to keep trying it, but there is really nothing else he can offer to try to treat this cancer. Dr. Atkins thinks that hospice is appropriate at this time, if family is interested in that option. Family/emotional support: is good, and dtr are very involved. Spiritual support- -Concern for his who could benefit from spiritual as well as bereavement support Patient Goals: 1. Patient wants to be told the truth about his/her illness, even if it is unpleasant. 2. Patient would like to be told prognosis when it can be predicted, to better guide treatment decisions. His daughter feels that he is getting tired of this and has mentioned wanting it to end but difficult time talking about it. 3. Patient would choose quality of life over quantity of life, and defines quality as active and independent-His family does not think his QOL is good or that it is likely to improve in the near future. 4. Patient would request that comfort care take priority over cognitive/mental confusion. Disposition: he will want to go home and hopefully if appropriate with hospice unless Dr. Atkins feels otherwise/if more treatments likely to benefit etc. If hospice isn't engaged now family would still be interested in the future. Currently there is a hospice info visit scheduled for 03/22 at 1pm. Problems: End of Life Preferences FULL CODE- but this needs addressing after they meet with Dr. Atkins Disposition hope is for home Resuscitation Status Resuscitation Status: CPR: Attempt Resuscitation POLST Updates/Changes Previous POLST?: No Total time 65 minutes; >50% face to face with patient and/or family, providing counselling regarding plans and recommendations, and in care coordination with his/her medical teams. Palliative Brief Note Date of Service Mar 19, 2017 . Provider asking for Pall Care Consult: Dr. Gonzales Boland Surgeon Dr. Winston Duron Oncologist Dr. Norma Atkins PCP Dr. Ferrari Patient Identification: Mr. Mcmullen is a 72-year-old male with metastatic bladder cancer admitted for abdominal and upper back pain on 03/18 who was found to have pneumoperitoneum from a stomach ulcer perforation who is now POD #2 laparotomy and patch closure of gastric perforation. He was extubated early this morning and is able to speak, but is sleeping most of morning. He is known to have recurrent metastatic transitional cell carcinoma of the bladder first dx in 2009, last April now with progressive weight loss, weakness and progression of ds despite trial of immunotherapy. He has started to go "downhill" since last August and has lost about 40 lbs. when he was found to have a bladder recurrence. He now has known involvement of his bone with a T2 compression fx and of his LN's and lungs. These seem to have progressed despite starting immunotherapy as per scan. Subjective: pt complains of some abdominal pain now and is wincing (with no palpation of abdomen at time of pain). He and family are requesting pain meds. Exam General: cachectic, looks much older than age Mental Status: More interactive for short questions, somewhat drowsy, HEENT: head normocephalic, atraumatic, sclerae clear, mmm dry, no gross lesions , pupils ERL. Heart: Regular Rate/Rhythm Lungs: clear Abdomen: scaphoid, +JPdrain : nephrostomy tube in place Extremities: No Edema, Lab and Diagnostics ABG 03/19/17: pH 7.402 / 35.7 / 119 / 21.8 03/19/17 0905 Microbiology MRSA negatvie Microbiology 03/18/17 Blood Fungal Culture, Received Pending 03/18/17 MRSA (PCR) - Final, Complete 03/18/17 Blood culture x 2 no growth to date Carline Ferrer MD Mar 19, 2017 10:35
--- NOTE | 2017-03-19 10:48 | PCM.PNMED ---
Subjective Date of Service Mar 19, 2017 Subjective . PULMONOLOGY / CRITICAL CARE PROGRESS NOTE Mr. Fields is intubated but currently undergoing a breathing trial. He is very alert and able to nod appropriately. Able to indicate that his feet were cold and gave me a thumbs up when I put socks on. Nodded yes when asked if he was weak. Exam Vital Signs Vital Sign - Last Date Time Temp Pulse Resp B/P Pulse Ox O2 Delivery O2 Flow Rate FiO2 03/19/17 10:30 Mechanical Ventilator 03/19/17 08:30 36.6 74 22 104/58 99 2.00 03/19/17 07:11 25 Intake and Output 03/18/17 03/18/17 03/19/17 Cumulative From/Thru 15:00 23:00 07:00 03/17/17 18:57 - 03/19/17 06:03 Intake Total 1489 ml 1697 ml 5596 ml Output Total 280 ml 585 ml 1420 ml Balance 1209 ml 1112 ml 4176 ml Intake IV Total 1489 ml 1697 ml 5596 ml Output Urine Total 250 ml 375 ml 1150 ml Gastric Drainage Total 0 ml 200 ml 200 ml Drainage Total 30 ml 10 ml 70 ml # Bowel Movements 0 Exam General: Intubated; no acute distress; cachectic; nods his head appropriately and is very alert HEENT: Atraumatic, temporal wasting, sclera anicteric, ETT in place with OG tube Cardiac: RRR, no murmur appreciated Chest: Significantly thinned with rib prominence Respiratory: Adequate airflow all brown, no crackles, wheezing or rhonchi appreciated Abdomen: Soft, bandage lifted and surgical vertical incision is healing and without edema, without excessive erythema or heat. Abdominal drain in place and secured; nephrostomy tube and bag attachment also in place and secured Extremities: Spontaneous movement of all 4 extremities ,radial pulses equal and intact; no edema Neuro: EOMI, alert IVs and Medications Medications Reviewed: Medications were reviewed in detail Lab and Diagnostics ABG 03/19/17: pH 7.402 / 35.7 / 119 / 21.8 Result Diagram: 03/19/1790403/19/17 09 Microbiology MRSA negatvie Microbiology 03/18/17 Blood Fungal Culture, Received Pending 03/18/17 MRSA (PCR) - Final, Complete 03/18/17 Blood culture x 2 no growth to date X-Rays, CTs and MRIs Date of Service: 03/17/17 X-RAY CHEST ONE VIEW, PORTABLE IMPRESSION: 1. Small nodular opacity in the left apex measuring approximately 1 cm. The finding is nonspecific but new from the prior study. The differential includes confluent bony structures as well as neoplasm or atypical infection. Recommended a repeat PA and lateral study when clinically feasible. Dictated by: Mikhail Harris M.D. on 03/17/2017 at 20:08 Date of Service: 03/17/17 CT ANGIO CHEST PULMONARY EMBOLISM IMPRESSION: 1. Moderate amount of pneumoperitoneum within the visualized upper abdomen consistent with viscus perforation. This may be secondary to a perforated mass in the region of the gastric antrum. Recommend further evaluation with dedicated abdominal CT. 2. No evidence of pulmonary embolism. 3. Increase in size of multiple bilateral pulmonary nodules consistent with progression of metastatic disease. 4. Progression of osseous metastatic disease most prominent within the upper thoracic spine and associated mild endplate compression fractures of T2. Findings discussed with Dr. Reeder on 03/17/17 at 10 PM. Dictated by: Mikhail Harris M.D. on 03/17/2017 at 21:57 Date of Service: 03/17/17 CT ABDOMEN AND PELVIS WITHOUT CONTRAST IMPRESSION: 1. Moderate amount of free peritoneal air in the upper abdomen consistent with viscus perforation. The site of perforation is not definitively visualized. The most likely cause of perfusion is gastric or duodenal ulcer. 2. Retroperitoneal adenopathy consistent with metastasis. 3. The regular appearance of bladder compatible with neoplasm. 4. Bilateral ureter stents. There is a left percutaneous nephrostomy. Mild left pelviectasis. 5. Lytic metastasis involving lumbar spine and right hemipelvis. 6. Extensive atherosclerosis. There is intimal displacement and distal abdominal aorta suspicious for focal dissection. 7. A large amount of stool in colon. Dictated by: Jade Zurita M.D. on 03/18/2017 at 8:48 Date of Service: 03/18/17 X-RAY CHEST ONE VIEW, PORTABLE IMPRESSION: 1. Support lines and tubes as above. 2. Abnormal airspace opacity within the mid left lung and left upper lobe consistent with aspiration versus pneumonia. 3. Scattered nodules are better seen on CT, suspicious for metastatic disease. 4. Streaky opacity within the medial left lung base likely related to subsegmental atelectasis. Dictated by: Nathaniel Ibarra RRA Interpreted: Jade Zurita MD on 03/18/2017 at 9:46 . Assessment & Plan Problem list: 1. Acute respiratory failure secondary to surgery 2. Perforated gastric ulcer status post exploratory laparotomy, patch application, and drain placement 03/17/20 3. Severe malnutrition, BMI 16.0 4. Carcinoma of the urinary bladder s/p chemoradiation 5-FU, metastatic 5. Acute anemia s/p 2U pRBC (03/17/17) 6. Left nephrostomy tube and ureteral stent placement 2009 7. Acute on chronic kidney failure 8. Goals of care, family support Mr. 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 Hospital day 3, postop day 2, ventilator day 3 (03/19/17). Respiratory failure due to sedation, pain medications secondary to surgery . Patient intubated and ventilated, currently undergoing a spontaneous breathing trial. If successful, patient will be extubated. Has a cuff leak. Do not believe patient has an active infection. On meropenem per surgery. Patient is afebrile. WBC elevated likely secondary to surgery and now decreasing. BP stable. Procalcitonin 1.03. Not on pressors. Blood pressure stable 80s-110s over 60s-70s. Normocytic, normochromic anemia. s/p 2 units of pRBC on 03/18/17. Stable post surgical repair of perforated ulcer. Dr. Atkins is the oncologist managing the bladder cancer. Patient has severe malnutrition and weight loss secondary to his metastatic cancer. Now s/p gastric ulcer repair -- postop day 2. Gastrografin swallow study through NG tube today to visualize stomach per surgery's request. Start trophic feeding if no leak per dietary. Palliative care involved for goals of care, symptom management, family and spiritual support and POLST . GI Prophylaxis: Proton Pump Inhibitor VTE Prophylaxis: SCDs VTE Mechanical Devices: Intermittant Pneumatic CD Resuscitation Status: CPR: Attempt Resuscitation Attending Statement CCM addendum: Above note reviewed and agree with plan. Pt. extubated now after successful SBT. Awake and alert. Feeling better. Gastrograffin study per surgery. Ot/PT Supportive care. Will sign off now, please feel free to call if any question. Thank you for involving us in this Pt.'s care. Pallavi Giron MD Pulm./[facility] Anu Arroyo DO Mar 19, 2017 10:48 Pallavi Giron MD Mar 19, 2017 13:03
--- NOTE | 2017-03-19 10:56 | NUR ---
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
[2017-03-19] MEDS: fentaNYL-PF 50 mCg/mL 2 mL Inj IVPUSH PRN ×2 (11:25→14:50)
--- NOTE | 2017-03-19 13:38 | ABG ---
DateTimeAnalyzed 13:35:00 -_ pH ____7.390 - 7.350 7.450 pCO2 ___37.0__ -mmHg 35.0 45.0 pO2 158 -mmHg 69.0 116 HCO3- ___21.9__ -mmol/L 22.0 26.0 ABE ___-2.2__ -mmol/L -2.0 2.0 tHb ____9.8__ -g/dL O2Hb ___97.2__ -% COHb ____1.4__ -% MetHb ____1.1__ -% sO2 ___99.7__ -% 25.0 FIO2 ___21.0__ -% Drawn By BTL - Date/Time Notified____ 13:38:00 -_ Liter_Flow ____3.0__ -L/min Oxygen Device 1 __CANNULA - Notified By Btl - Notified Whom ___Dr. Butterfield - B 764 -mmHg tO2 ___13.7__ -Vol% Ian test _Positive -
--- NOTE | 2017-03-19 14:01 | NUR ---
Evaluation completed. Please go to "Notes" then click on "Assessments and Notes" (bottom left corner of screen). Then select appropriate discipline tab on top of screen.
--- NOTE | 2017-03-19 15:20 | NUR ---
P: Pain I: Pt extubated this am at 0800. Pt alert and oriented. Uses call light appropriately. c/o incisional pain 4/10 and medicated with fentanyl 25mcqs with good relief. Swallow evaluation done so pt can go down and have gastrographic test done. NPO otherwise.Midline abdominal dressing without increase drainage. Nephrostomy tube with 700cc of urine output. LIZY patent and drained 40cc of serous fluid. SCD's on. Pt refuses PT and turns. States he will move himself. Education of possible adverse reactions of pneumonia, increased weakness than can affect dc to home and decub sores from lack of movement. Family and pt aware and pt refuses. Pt refuses bath, and oral care. IVF infusing without redness or swelling at the site. Seems a little depressed. E: Stable. S: Alert and oriented. Uses call light appropriately. Pt and family informed on pt's condition and plan of care. Frequent rounding.
--- NOTE | 2017-03-19 16:06 | DRSVH ---
PROCEDURE: X-RAY UPPER GI WITH GASTROGRAPHIN ([id number]) INDICATIONS: 72 year-old male with recent perforated duodenal ulcer repair. COMPARISON: [facility], CT, CT ABD PELVIS WO CON, 03/17/2017, 22:45. FINDINGS: KUB: Preprocedural environmental management specialist film demonstrates a normal bowel gas pattern. No suspicious abdominal calc ifications. Visualized solid organ contours appear normal. Bony structures appear unremarkable. Up per abdominal surgical drain is present as well as bilateral ureteral stents and percutaneous left ne phrostomy tube. Esophagus: Mild esophageal dysmotility is noted. No strictures, extrinsic mass effects, or diverticu la. Small hiatal hernia. Stomach: Stomach is normally distensible, without extrinsic mass effects. There is no extravasation of contrast media seen at the level of previous ulcer repair involving the distal stomach. Patient was then given single contrast barium sulfate for further evaluation and again no extravasation of co ntrast media was visualized. The attending physician was personally present in the room during the e xamination. IMPRESSION: 1. Small hiatal hernia. 2. No extravasation of Gastrografin or barium involving the distal stomach and duodenum, status post recent duodenal ulcer repair. Dictated by: Nathaniel RODRIGUEZ Interpreted: Lex Angel MD on 03/19/2017 at 16:00 Transcribed by: KORTNEY on 03/19/2017 at 16:06 Approved by: Lex Angel M.D. on 03/19/2017 at 16:35
--- NOTE | 2017-03-19 18:51 | PCM.PNMED ---
Subjective Date of Service Mar 19, 2017 Subjective 72-year-old man with metastatic transitional cell urothelial carcinoma presents with acute abdomen due to perforated gastric ulcer, status post surgery. Patient was extubated today. Is fatigued and not highly conversant. He reports passing no flatus or stool. He denies pain at present. Exam Vital Signs Vital Sign - Last Date Time Temp Pulse Resp B/P Pulse Ox O2 Delivery O2 Flow Rate FiO2 03/19/17 16:30 36.6 83 18 110/64 98 Nasal Cannula 2.00 03/19/17 07:11 25 Intake and Output 03/18/17 03/18/17 03/19/17 Cumulative From/Thru 15:00 23:00 07:00 03/17/17 18:57 - 03/19/17 06:03 Intake Total 1489 ml 1697 ml 5596 ml Output Total 280 ml 585 ml 1420 ml Balance 1209 ml 1112 ml 4176 ml Intake IV Total 1489 ml 1697 ml 5596 ml Output Urine Total 250 ml 375 ml 1150 ml Gastric Drainage Total 0 ml 200 ml 200 ml Drainage Total 30 ml 10 ml 70 ml # Bowel Movements 0 Exam General: Cachectic slightly disheveled but in no acute distress HEENT: sclerae anicteric, oral mucosa dry Neck: no JVD Chest: clear to auscultation Cardiac: S1S2, no murmur Abdomen: BS diminished, surgical bandage, Extremities: No pedal edema Neuro: Alert and generally oriented, cranial nerves symmetric, coordination normal, 4/5 generalized strength IVs and Medications Medications Reviewed: Medications were reviewed in detail Lab and Diagnostics Result Diagram: 03/19/17 0903/19/17 0905 Microbiology MRSA negatvie Microbiology 03/18/17 Blood Fungal Culture, Received Pending 03/18/17 MRSA (PCR) - Final, Complete 03/18/17 Blood culture x 2 no growth to date X-Rays, CTs and MRIs Date of Service: 03/17/17 X-RAY CHEST ONE VIEW, PORTABLE IMPRESSION: 1. Small nodular opacity in the left apex measuring approximately 1 cm. The finding is nonspecific but new from the prior study. The differential includes confluent bony structures as well as neoplasm or atypical infection. Recommended a repeat PA and lateral study when clinically feasible. Dictated by: Mikhail Harris M.D. on 03/17/2017 at 20:08 Date of Service: 03/17/17 CT ANGIO CHEST PULMONARY EMBOLISM IMPRESSION: 1. Moderate amount of pneumoperitoneum within the visualized upper abdomen consistent with viscus perforation. This may be secondary to a perforated mass in the region of the gastric antrum. Recommend further evaluation with dedicated abdominal CT. 2. No evidence of pulmonary embolism. 3. Increase in size of multiple bilateral pulmonary nodules consistent with progression of metastatic disease. 4. Progression of osseous metastatic disease most prominent within the upper thoracic spine and associated mild endplate compression fractures of T2. Findings discussed with Dr. Reeder on 03/17/17 at 10 PM. Dictated by: Mikhail Harris M.D. on 03/17/2017 at 21:57 Date of Service: 03/17/17 CT ABDOMEN AND PELVIS WITHOUT CONTRAST IMPRESSION: 1. Moderate amount of free peritoneal air in the upper abdomen consistent with viscus perforation. The site of perforation is not definitively visualized. The most likely cause of perfusion is gastric or duodenal ulcer. 2. Retroperitoneal adenopathy consistent with metastasis. 3. The regular appearance of bladder compatible with neoplasm. 4. Bilateral ureter stents. There is a left percutaneous nephrostomy. Mild left pelviectasis. 5. Lytic metastasis involving lumbar spine and right hemipelvis. 6. Extensive atherosclerosis. There is intimal displacement and distal abdominal aorta suspicious for focal dissection. 7. A large amount of stool in colon. Dictated by: Jade Zurita M.D. on 03/18/2017 at 8:48 Date of Service: 03/18/17 X-RAY CHEST ONE VIEW, PORTABLE IMPRESSION: 1. Support lines and tubes as above. 2. Abnormal airspace opacity within the mid left lung and left upper lobe consistent with aspiration versus pneumonia. 3. Scattered nodules are better seen on CT, suspicious for metastatic disease. 4. Streaky opacity within the medial left lung base likely related to subsegmental atelectasis. Dictated by: Nathaniel Ibarra [facility] Interpreted: Jade Zurita MD on 03/18/2017 at 9:46 . Assessment & Plan # Perforated gastric ulcer status post exploratory laparotomy, washout, Branden patch application, and drain placement, acute, present on admission. Under therapy - Postoperative abdominal care - Monitor CBC - Advance diet after return of bowel function # Acute hypoxemic respiratory failure, resolved. - Patient extubated and in no signs of ongoing respiratory distress # Acute anemia status post 2U pRBC, present on admission. On admit: Hb 9.0, decreased to 7.2; received 2 units packed red blood cells prior to OR - Repeat hemoglobin: 13.3 postoperatively - Monitor and transfuse as needed # Severe protein calorie malnutrition, chronic. Ongoing - On admit: BMI 17 - Dietary consultation # Left nephrostomy tube and ureteral stent placement, chronic. Presumed stable - No Pavon in place as patient has nephrostomy tube - Monitor output # Chronic kidney failure. Presumed stable. On admit: Cr 1.61; repeat postop 1.28 - Monitor # Goals of care. Medical team recommends hospice care. - Palliative consult . GI Prophylaxis: Proton Pump Inhibitor VTE Prophylaxis: SCDs VTE Mechanical Devices: Intermittant Pneumatic CD Resuscitation Status: CPR: Attempt Resuscitation Time spent 35 minutes Oliver Sherman MD Mar 19, 2017 18:51
[2017-03-20] VITALS (8 sets, daily range): BP systolic 104–124; BP diastolic 56–81; PULSE 63–104; RESP 16–24; O2SAT 96–99
[2017-03-20] MEDS: Chlorhexidine 0.12% 15 mL Oral Solution MT SCH ×6 (00:30→20:30)
[2017-03-20] MEDS: fentaNYL-PF 50 mCg/mL 2 mL Inj IVPUSH PRN ×4 (00:47→22:39)
[2017-03-20] MEDS: Heparin 5,000 Unit/mL Inj SUBQ SCH ×3 (00:49→18:12)
[2017-03-20] MEDS: Propofol Inj 1,000,000 MCG in IV Premix 1 EACH IV SCH (02:47)
[2017-03-20] MEDS: fentaNYL 2,500 mCg/250 mL 2,500 MCG in IV Premix 1 EACH IV SCH (02:47)
[2017-03-20 03:34] LABS: BASOPHILS % (AUTO) 0 % (0-3); EOSINOPHILS % (AUTO) 0.1 % (0-5); MONOCYTES % (AUTO) 4.7 % (4-12); Mean Corpuscular Hemoglobin 27.3 pg (27.0-35.0); Mean Corpuscular Volume 91.4 fL (81-100); NEUTROPHILS % (AUTO) 92.5 % (40-74); Platelet Count 199 bil/L (150-400)
[2017-03-20] MEDS: 0.9% Sodium Chloride 1,000 ML IV SCH ×2 (06:25→15:15)
--- NOTE | 2017-03-20 07:46 | NUR ---
Pain/PO Intake Pt c/o pain 8/10 in left flank and lower abdomen. Pt asked for nephrostomy to be flushed. Nephrostomy was flushed with 10cc NS x2 with no relief in pain and no further urine output into the nephrostomy bag. Pt received 25mcg fentanyl x2 for the pain. First 25mcg of fentanyl did not relieve the pain but the second dose decreased pain to 5/10 and pt stated 6/10 is where the pt can tolerate pain at this point. Pt currently has no c/o pain and nephrostomy had 550cc of urine in it after the nephrostomy bag was flushed. Pt continues to tolerate ice chip PO.
[2017-03-20] MEDS: Pantoprazole 4 mg/mL 10 mL Inj IVPUSH SCH ×2 (09:04→18:12)
--- NOTE | 2017-03-20 09:12 | NUR ---
No pain/sleepy Pt states no pain. States he is sleepy. Administered medication. Care continues.
--- NOTE | 2017-03-20 11:27 | PROG NOTE ---
[address] [address] PROGRESS NOTE PATIENT: MARTIN MARIN : 1945 MR#: [id number] ADMIT: 03/17/2017 JOB ID: [id number] DATE: 03/20/2017 SUBJECTIVE: The patient is postoperative day two following open repair of a perforated gastric ulcer by Dr. Hector Duron. He had a Gastrografin upper GI yesterday that showed no extravasation. Today the patient says he is weak but otherwise feels well. He has no nausea or vomiting. PHYSICAL EXAMINATION: BMI 16.5, temperature 37.2, brachial blood pressure 113/62, pulse 86, respiratory rate 16, O2 sat 2 L is 97%. General: He is alert but appears weak, elderly, older than stated age. Abdomen is flat. Incision healing well. Lgoan-Chambers drain 100 cc of serous fluid, non bilious. LABORATORY RESULTS: White blood cell count 10.7, hematocrit 31.8, platelet count 199,000. Sodium 147, creatinine 1.29, glucose 103. IMPRESSION: Doing well. PLAN: Clear liquids.
[2017-03-20] MEDS: Meropenem Inj 2,000 MG in 0.9% Sodium Chloride 100 ML IV SCH ×2 (12:04→22:39)
--- NOTE | 2017-03-20 12:18 | NUR ---
Clear liquids Pt advanced to clear liquids, tolerating 800 mL of water and applejuice combined with water. Care continues.
--- NOTE | 2017-03-20 13:56 | NUR ---
Social Work: initial Assessment Data & Assessment: See initial Assessment. EMR reviewed. Patient is a 72 y/o male that admitted with perforated viscus, GI bleed and cancer per H&P. SW met with patient at bedside to complete initial assessment, SW role explained and discharge planning discussed. Patient confirmed that Dr. Henry Ferrari is his PCP and that Medicare and AARP are his insurance. Patient does not have any LTC benefits or VA benefits. Patient's re-admit score is 0 no risk. Patient does not have an Advance Directive/DPOA and declined the information. Patient reported that he lives at home with his and there is 12 steps on the inside of the home and 4 on the outside. Patient does not have any HH or SNF history. Patient has a walker and does drive. patient reports that he is independent at [place] line. Patient has a hospice info. visit scheduled, but patient stated that he does not want hospice. SW will continue to follow patient for discharge planning needs. Plan: Patient will either discharge home with hospice or home without hospice. SW will continue to follow patient and assist with discharge planning needs. Prashanth [place] LMSW, [facility] Addendum: 03/20/17 at 1418 by PRASHANTH ROJAS Amended: Links added.
--- NOTE | 2017-03-20 14:08 | NUR ---
NUTRITION ASSESSMENT: ASSESS: Pt is a 72 YO male admitted to CCU with perforated viscus that required emergent intervention; POD #2 following open repair of perforated gastric ulcer. He had a Gastrografin upper GI yesterday that showed no extravasation. Diet advanced to clear liquids; however, it should be noted that pt. has been NPO since admit x 3 D. Of note, pt has history of bladder ca and has experienced ~18.5% wt loss x 4 months= significant. Palliative care is involved for goals of care. PMHX:Bladder ca, s/p tumor removal w/pul mets, HTN, UTI LABS: Reviewed. Na 147, Chloride 114, BUN 42, Cr 1.29, Glu 103, Ca 8.3. MEDS:Reviewed. GI:0 BM since admit x 3 D. SKIN: Piero 15 today. Pt with visible muscle/fat loss WT: 46.kg, BMI 16.0kg/m2, UBW ~57kg, 18.5% wt loss x 4 mo= significant DIET: NPO EST. NEEDS: vent/ surgery/ wt Kcals: 1020-1160kcal/day (22-25kcal/kg) Pro: 80-100g/day (1.2-1.5g/kg) Fluids: ~1160ml/day (25ml/kg) NUTRITION DIAGNOSIS: 1) Severe pro/kcal malnutrition related to chronic disease as evidence by pt with 18.5% wt loss x4 months and visible fat/muscle loss - PERSISTS. 2) Altered GI function related to gastric perf as evidence by need for NPO diet order and emergent surgery - RESOLVING. 3) Inadequate oral intake related to decreased ability to consume sufficient energy as evidenced by current NPO status - PERSISTS. NUTRITION INTERVENTION: 1) Will monitor for GI function to return. If pt requires prolonged NPO/clear liquid status and GI function precludes diet advance beyond clear liquids, due to poor nutritional status pt would benefit from enteral feeding. Recommend start trophic feeding of Vital 1.5 @ 10ml/hr and hold until okay per MD to advance. Recommend monitor labs/tolerance closely for signs of re-feeding as pt has had severe wt loss. 2) If enteral feeding is tolerated and okay per MD to advance, recommend advance by 10ml q 12 hrs until reach goal rate of 35ml/hr. TF at goal will provide 1155kcal and 51.5g pro (100% kcal and 65% pro needs.). Recommend add 1 packet prosource TID once TF is well tolerated at goal to better meet protein needs. 3) Will continue to monitor clear liquid status. MONITOR / EVAL: Diet advance, PO intake, GI, wt, labs, POC, nutrition status. Will continue to monitor per high nutrition risk guidelines
--- NOTE | 2017-03-20 15:36 | PCM.PNMED ---
Subjective Date of Service Mar 20, 2017 Subjective 72-year-old man with metastatic transitional cell urothelial carcinoma presents with acute abdomen due to perforated gastric ulcer, status post surgery. Patient was on 03/19. He reports passing flatus but no stool. He denies pain at present. No dyspnea. No nausea. Exam Vital Signs Vital Sign - Last Date Time Temp Pulse Resp B/P Pulse Ox O2 Delivery O2 Flow Rate FiO2 03/20/17 12:23 36.9 79 18 116/56 98 Nasal Cannula 2.00 03/19/17 07:11 25 Intake and Output 03/19/17 03/19/17 03/20/17 Cumulative From/Thru 14:59 22:59 06:59 03/17/17 18:57 - 03/20/17 04:52 Intake Total 1090 ml 6686 ml Output Total 740 ml 2160 ml Balance 350 ml 4526 ml IV Total 1090 ml 6686 ml Output Urine Total 700 ml 1850 ml Gastric Drainage Total 200 ml Drainage Total 40 ml 110 ml # Bowel Movements 0 Exam General: Cachectic but in no acute distress HEENT: sclerae anicteric, oral mucosa normal Neck: no JVD Chest: clear to auscultation Cardiac: S1S2, no murmur Abdomen: BS active, surgical bandage, Extremities: No pedal edema Neuro: Alert and generally oriented, cranial nerves symmetric, barely able to lift legs off bed bilaterally IVs and Medications Medications Reviewed: Medications were reviewed in detail Lab and Diagnostics Result Diagram: 03/20/17 0258 03/19/17 0905 Microbiology MRSA negatvie Microbiology 03/18/17 Blood Fungal Culture, Received Pending 03/18/17 MRSA (PCR) - Final, Complete 03/18/17 Blood culture x 2 no growth to date X-Rays, CTs and MRIs Date of Service: 03/17/17 X-RAY CHEST ONE VIEW, PORTABLE IMPRESSION: 1. Small nodular opacity in the left apex measuring approximately 1 cm. The finding is nonspecific but new from the prior study. The differential includes confluent bony structures as well as neoplasm or atypical infection. Recommended a repeat PA and lateral study when clinically feasible. Dictated by: Mikhail Harris M.D. on 03/17/2017 at 20:08 Date of Service: 03/17/17 CT ANGIO CHEST PULMONARY EMBOLISM IMPRESSION: 1. Moderate amount of pneumoperitoneum within the visualized upper abdomen consistent with viscus perforation. This may be secondary to a perforated mass in the region of the gastric antrum. Recommend further evaluation with dedicated abdominal CT. 2. No evidence of pulmonary embolism. 3. Increase in size of multiple bilateral pulmonary nodules consistent with progression of metastatic disease. 4. Progression of osseous metastatic disease most prominent within the upper thoracic spine and associated mild endplate compression fractures of T2. Findings discussed with Dr. Reeder on 03/17/17 at 10 PM. Dictated by: Mikhail Harris M.D. on 03/17/2017 at 21:57 Date of Service: 03/17/17 CT ABDOMEN AND PELVIS WITHOUT CONTRAST IMPRESSION: 1. Moderate amount of free peritoneal air in the upper abdomen consistent with viscus perforation. The site of perforation is not definitively visualized. The most likely cause of perfusion is gastric or duodenal ulcer. 2. Retroperitoneal adenopathy consistent with metastasis. 3. The regular appearance of bladder compatible with neoplasm. 4. Bilateral ureter stents. There is a left percutaneous nephrostomy. Mild left pelviectasis. 5. Lytic metastasis involving lumbar spine and right hemipelvis. 6. Extensive atherosclerosis. There is intimal displacement and distal abdominal aorta suspicious for focal dissection. 7. A large amount of stool in colon. Dictated by: Jade Zurita M.D. on 03/18/2017 at 8:48 Date of Service: 03/18/17 X-RAY CHEST ONE VIEW, PORTABLE IMPRESSION: 1. Support lines and tubes as above. 2. Abnormal airspace opacity within the mid left lung and left upper lobe consistent with aspiration versus pneumonia. 3. Scattered nodules are better seen on CT, suspicious for metastatic disease. 4. Streaky opacity within the medial left lung base likely related to subsegmental atelectasis. Dictated by: Nathaniel Ibarra [facility] Interpreted: Jade Zurita MD on 03/18/2017 at 9:46 . Assessment & Plan # Perforated gastric ulcer status post exploratory laparotomy, washout, Branden patch application, and drain placement, acute, present on admission. Under therapy - Postoperative abdominal care - Monitor CBC - Advance diet to clear liquids on 03/20 # Acute hypoxemic respiratory failure, resolved. - Patient extubated 03/19, no signs of ongoing respiratory distress # Acute anemia status post 2U pRBC, present on admission. On admit: Hb 9.0, decreased to 7.2; received 2 units packed red blood cells prior to OR - Repeat hemoglobin: 13.3 postoperatively - Monitor and transfuse as needed # Severe protein calorie malnutrition, chronic. Ongoing - On admit: BMI 17 - Dietary consultation # Left nephrostomy tube and ureteral stent placement, chronic. Presumed stable - No Pavon in place as patient has nephrostomy tube - Monitor output # Chronic kidney failure. Presumed stable. On admit: Cr 1.61; repeat postop 1.28 - Monitor periodically # Goals of care. Medical team recommends hospice care. Patient seems to have little insight into severity of his cancer. - Palliative consult - Family considering information on hospice . GI Prophylaxis: Proton Pump Inhibitor VTE Prophylaxis: SCDs VTE Mechanical Devices: Intermittant Pneumatic CD Resuscitation Status: CPR: Attempt Resuscitation Time spent 25 minutes Oliver Sherman MD Mar 20, 2017 15:36
--- NOTE | 2017-03-20 17:32 | PCM.ADCARE ---
Advance Care Planning Note Purpose of Encounter: Discussed swallow evaluation and risks of aspiration pneumonia, returned to mechanical ventilation. Parties in Attendance: Mr. FieldsDr. Sherman Decisional Capacity: The patient is alert and oriented and decisional. Subjective: I presented the findings of our speech and swallow evaluation which indicated high risk for aspiration, and recommend nothing by mouth status. I explained that given his general weakness this is not likely to improve on its own. I described alternatives to oral intake including NG tube feedings and G-tube feedings. I explained that continued intake by mouth would be likely to cause pneumonia which would likely cause him respiratory distress requiring mechanical ventilation. I explained that the hospital cannot allow him to drink if this risk is foreseeable. I presented the option of nothing by mouth status with intravenous fluids and oral hydration using sponges and chips. I described the likelihood that he would need G-tube placement for ongoing feedings. Goals of Care Determinations: Mr. Marsh clearly expressed his values that the ability to drink is highly important for his quality of life right now. He understood the risk that drinking could cause a pneumonia which might end his life. Given the choice, he elects to continue with by mouth intake and wishes not to be intubated in case this leads to respiratory failure from pneumonia. We concluded with a decision that he wishes never to return to mechanical ventilation. Our conversation focused on his oral intake status and risks of respiratory failure. I did not attempt to broach the subject of cardiac arrest. I understand his wishes for full treatment short of mechanical ventilation, and feel that malignant arrhythmias may be treated briefly with bag mask and ACLS maneuvers if recovery is prompt and not requiring mechanical ventilation for continued support. Plan: Limited interventions. CODE STATUS: DO NOT INTUBATE Time Spent Adv.Care Plannin minutes Oliver Sherman MD Mar 20, 2017 17:32
--- NOTE | 2017-03-20 18:23 | NUR ---
Pain Pt states sudden generalized pain. Pain scale 10. Administered 25 mcg of Fentanyl. Notified
[2017-03-21] VITALS (10 sets, daily range): BP systolic 106–123; BP diastolic 64–82; PULSE 60–90; RESP 16–24; O2SAT 92–97
[2017-03-21] MEDS: Chlorhexidine 0.12% 15 mL Oral Solution MT SCH ×3 (00:30→08:30)
[2017-03-21] MEDS: fentaNYL-PF 50 mCg/mL 2 mL Inj IVPUSH PRN ×3 (00:58→05:41)
[2017-03-21] MEDS: Heparin 5,000 Unit/mL Inj SUBQ SCH ×3 (01:39→16:36)
[2017-03-21] MEDS: 0.9% Sodium Chloride 1,000 ML IV SCH ×3 (01:40→18:58)
--- NOTE | 2017-03-21 03:54 | NUR ---
Pain/Nose Bleed Pt has had generalized body pain 06/07 - 07/08 that is now not being relieved by 25mcg of fentanyl. Pt moans and shakes from the pain. Will continue to try and give the 25mcg of fentanyl Q2H as long as pt has pain to keep pt's pain from becoming unmanageable. Pt had a nose bleed during the shift and moisture was added to the pt's supplemental O2. Addendum: 03/21/17 at 0612 by URI VALDOVINOS RN Gave pt 25mcg of fentanyl for 5/10 pain 2 hours after the last dose of fentanyl was given and when reassessed the pain was a 3/10. It seems that the pain is more manageable if the pain if evaluated approximately every 2 hours and fentanyl is given for a lower pain number.
--- NOTE | 2017-03-21 06:32 | NUR ---
BM/Bed Change Pt had a large tarry stool this AM. The bedding was completely changed. When changing the bedding we realized that the pt's nephrostomy has been leaking on the bed. When asked the pt says that at home the nephrostomy leaks at times.
[2017-03-21] MEDS ORDERED: fentaNYL-PF 50 mCg/mL 2 mL Inj IVPUSH PRN (09:20)
--- NOTE | 2017-03-21 09:36 | PROG NOTE ---
[address] [address] PROGRESS NOTE PATIENT: MARTIN MARIN : 1945 MR#: [id number] ADMIT: 03/17/2017 JOB ID: [id number] DATE: 03/21/2017 SUBJECTIVE: The patient is seen in followup. He reports passing gas. There is no bowel movement recorded. He denies nausea and vomiting. He states the pain is minimal. PHYSICAL EXAMINATION: Appearing older than stated age and frail. Temperature 36.8, brachial blood pressure 108/64, pulse 60, respiratory rate 20, O2 sat 2 L at 97%. His abdomen is flat. Incision doing well. Logan-Chambers drain is light serosanguineous 120 cc the first 8 hours of today. IMPRESSION: Doing well. Tolerating clear liquids. PLAN: Will advance to full liquids and leave Logan-Chambers drain in for today. He needs to get out of bed and physical therapy.
[2017-03-21] MEDS: Pantoprazole 4 mg/mL 10 mL Inj IVPUSH SCH ×2 (09:38→16:36)
--- NOTE | 2017-03-21 10:10 | NUR ---
Evaluation completed. Please go to "Notes" then click on "Assessments and Notes" (bottom left corner of screen). Then select appropriate discipline tab on top of screen.
[2017-03-21] MEDS: fentaNYL PCA 10 mCg/mL 30 mL Inj IV PRN (10:45)
[2017-03-21] MEDS: Meropenem Inj 2,000 MG in 0.9% Sodium Chloride 100 ML IV SCH ×2 (11:15→22:55)
--- NOTE | 2017-03-21 17:48 | PCM.PNMED ---
Subjective Date of Service Mar 21, 2017 Subjective 72-year-old man with metastatic transitional cell urothelial carcinoma presents with acute abdomen due to perforated gastric ulcer, status post surgery. He reports passing flatus and stool. He now reports increasing diffuse pain, although he tends to minimize this. No dyspnea. No nausea. Exam Vital Signs Vital Sign - Last Date Time Temp Pulse Resp B/P Pulse Ox O2 Delivery O2 Flow Rate FiO2 03/21/17 17:00 37.1 70 18 106/65 94 Nasal Cannula 2.00 03/19/17 07:11 25 Intake and Output 03/20/17 03/20/17 03/21/17 Cumulative From/Thru 15:00 23:00 07:00 03/17/17 18:57 - 03/21/17 06:08 Intake Total 1768 ml 1667 ml 14874 ml Output Total 1570 ml 220 ml 3950 ml Balance 198 ml 1447 ml 6171 ml Intake Oral 200 ml 200 ml 400 ml IV Total 1568 ml 1467 ml 9721 ml Output Urine Total 1350 ml 125 ml 3325 ml Gastric Drainage Total 200 ml Drainage Total 220 ml 95 ml 425 ml # Bowel Movements 0 Exam General: Cachectic but in no acute distress unless moved HEENT: sclerae anicteric, oral mucosa normal Neck: no JVD Chest: clear to auscultation Cardiac: S1S2, no murmur Abdomen: BS active, surgical bandage, nephrostomy tube, Logan-Chambers drain to abdomen Extremities: No pedal edema Neuro: Alert and oriented, cranial nerves symmetric, barely able to lift legs off bed bilaterally IVs and Medications Medications Reviewed: Medications were reviewed in detail Lab and Diagnostics Result Diagram: 03/20/17 0258 03/19/17 0905 Microbiology MRSA negatvie Microbiology 03/18/17 Blood Fungal Culture, Received Pending 03/18/17 MRSA (PCR) - Final, Complete 03/18/17 Blood culture x 2 no growth to date X-Rays, CTs and MRIs Date of Service: 03/17/17 X-RAY CHEST ONE VIEW, PORTABLE IMPRESSION: 1. Small nodular opacity in the left apex measuring approximately 1 cm. The finding is nonspecific but new from the prior study. The differential includes confluent bony structures as well as neoplasm or atypical infection. Recommended a repeat PA and lateral study when clinically feasible. Dictated by: Mikhail Harris M.D. on 03/17/2017 at 20:08 Date of Service: 03/17/17 CT ANGIO CHEST PULMONARY EMBOLISM IMPRESSION: 1. Moderate amount of pneumoperitoneum within the visualized upper abdomen consistent with viscus perforation. This may be secondary to a perforated mass in the region of the gastric antrum. Recommend further evaluation with dedicated abdominal CT. 2. No evidence of pulmonary embolism. 3. Increase in size of multiple bilateral pulmonary nodules consistent with progression of metastatic disease. 4. Progression of osseous metastatic disease most prominent within the upper thoracic spine and associated mild endplate compression fractures of T2. Findings discussed with Dr. Reeder on 03/17/17 at 10 PM. Dictated by: Mikhail Harris M.D. on 03/17/2017 at 21:57 Date of Service: 03/17/17 CT ABDOMEN AND PELVIS WITHOUT CONTRAST IMPRESSION: 1. Moderate amount of free peritoneal air in the upper abdomen consistent with viscus perforation. The site of perforation is not definitively visualized. The most likely cause of perfusion is gastric or duodenal ulcer. 2. Retroperitoneal adenopathy consistent with metastasis. 3. The regular appearance of bladder compatible with neoplasm. 4. Bilateral ureter stents. There is a left percutaneous nephrostomy. Mild left pelviectasis. 5. Lytic metastasis involving lumbar spine and right hemipelvis. 6. Extensive atherosclerosis. There is intimal displacement and distal abdominal aorta suspicious for focal dissection. 7. A large amount of stool in colon. Dictated by: Jade Zurita M.D. on 03/18/2017 at 8:48 Date of Service: 03/18/17 X-RAY CHEST ONE VIEW, PORTABLE IMPRESSION: 1. Support lines and tubes as above. 2. Abnormal airspace opacity within the mid left lung and left upper lobe consistent with aspiration versus pneumonia. 3. Scattered nodules are better seen on CT, suspicious for metastatic disease. 4. Streaky opacity within the medial left lung base likely related to subsegmental atelectasis. Dictated by: Nathaniel Ibarra [facility] Interpreted: Jade Zurita MD on 03/18/2017 at 9:46 . Assessment & Plan # Perforated gastric ulcer status post exploratory laparotomy, washout, Branden patch application, and drain placement, acute, present on admission. Under therapy - Postoperative abdominal care - Monitor CBC - Advance diet to full liquids on 03/21 # Goals of care. Extensive discussion of goals of care with his at bedside today. Patient verbalizes that he wants to walk and to be able to drink fluids. Acknowledges anorexia. He and were informed of difficulty in recovering functional status in the setting of advanced cancer with anorexia and cachexia. I presented choices of SNF with rehabilitation efforts, versus home with hospice. They seem inclined toward the latter. # chronic cancer pain. - Initiate fentanyl PCI # Acute hypoxemic respiratory failure, resolved. - Patient extubated 03/19, no signs of ongoing respiratory distress # Acute anemia status post 2U pRBC, present on admission. On admit: Hb 9.0, decreased to 7.2; received 2 units packed red blood cells prior to OR - Repeat hemoglobin: 13.3 postoperatively - Monitor and transfuse as needed # Severe protein calorie malnutrition, chronic. Ongoing - On admit: BMI 17 - Dietary consultation # Left nephrostomy tube and ureteral stent placement, chronic. Presumed stable - No Pavon in place as patient has nephrostomy tube; he reports that he is due for change in collection bag - Monitor output # Chronic kidney failure. Presumed stable. On admit: Cr 1.61; repeat postop 1.28 - Monitor periodically GI Prophylaxis: Proton Pump Inhibitor VTE Prophylaxis: SCDs VTE Mechanical Devices: Intermittant Pneumatic CD Resuscitation Status: CPR: Attempt Resuscitation Time spent 50 minutes, including 30 minutes at bedside counseling patient and Oliver Sherman MD Mar 21, 2017 17:47
--- NOTE | 2017-03-21 18:08 | NUR ---
Transfer from CCU 2014 to PCC 2004 Pt transferred to PCC room 2003 at approximately 1510. Pt retaining this same RN. notified. Care continues.
--- NOTE | 2017-03-21 18:47 | NUR ---
ABD dressing Pt ABD dressing falling off. Changed dressing used ABD pad, two 4 X 4s, T Drain. Wound approximated. Care continues.
[2017-03-22] VITALS (8 sets, daily range): BP systolic 83–112; BP diastolic 57–78; PULSE 64–129; RESP 16–28; O2SAT 91–99
[2017-03-22] MEDS: Heparin 5,000 Unit/mL Inj SUBQ SCH ×3 (00:32→17:07)
--- NOTE | 2017-03-22 00:37 | NUR ---
[employer]GR[employer] Pt has multiple pressure injuries, but refuses Q2 turns. Pt states he can adjust on his own and that having people turn him is too painful. Pt on LEVEL VIAL SEALER Fentanyl @ 10 mcg with 10 min. lock out.
[2017-03-22] MEDS: 0.9% Sodium Chloride 1,000 ML IV SCH ×3 (03:18→22:48)
--- NOTE | 2017-03-22 08:33 | PCM.PNSURG ---
Subjective Date of Service: Mar 22, 2017 Date of Service: Mar 22, 2017 Visit Information: Reason for Visit Perforated Viscus,Gi Bleed,Anemia,Cancer Surgery/Surgery Date Post-Op Day # Date of Admission: Mar 17, 2017 at 22:54 Hospital Day # Subjective: Mr. Bradly Fields was lying in bed awaiting breakfast. He reports good pain control with CASE FILLER. He reports daily flatus and BM yesterday. Denies Nausea, vomiting, fever, chills. Objective Vital Sign- Last 8 Hours Date Time Temp Pulse Resp B/P Pulse Ox O2 Delivery O2 Flow Rate FiO2 03/22/17 03:18 37.2 76 16 104/65 92 Nasal Cannula 1.00 03/22/17 02:03 Supplement Oxygen Intake and Output- Last 8 Hour 03/22/17 Cumulative From/Thru 07:00 03/17/17 18:57 - 03/22/17 06:31 Intake Total 1750 ml 20316 ml Output Total 830 ml 6643 ml Balance 920 ml 7634 ml Intake Oral 400 ml 2160 ml IV Total 1350 ml 81682 ml Output Urine Total 830 ml 5880 ml Gastric Drainage Total 200 ml Drainage Total 0 ml 563 ml # Bowel Movements 0 General: Alert, Oriented X3, No Acute Distress Lungs: Clear to Auscultation Heart: Exam Unremarkable, Regular Rate/Rhythm Abdomen: Soft, Non-tender Result Diagram: 03/20/17 0258 03/19/17 0905 Additional Information: Lap incision sites clean, dry and intact. No edema , erythema. Drain with scant serosanguineous output so far today. Assessment & Plan Impression The patient is a 72-year-old male with metastatic bladder cancer who has pneumoperitoneum, status post day #4 laparotomy and patch closure of gastric perforation. Problems: Plan Patients pain well controlled with CASE FILLER. Reports BM yesterday and passing flatus. LIZY drain 138 cc serosanguineous fluid yesterday and will await today's measurement before pulling LIZY drain. Continue to advance diet, currently at soft diet and leave Logan-Chambers drain in for this morning. Continue to ambulate with physical therapy. Goal of pre hospitalization, ambulation with walker. VTE Prophylaxis: SCDs Resuscitation Status: CPR: Attempt Resuscitation Attending Statement: I examined the pt, and I agree with Dr. Jrery's assessment and plan. GIORGI JERRY DO Mar 22, 2017 08:33 Sherman Duron MD Mar 24, 2017 18:14
--- NOTE | 2017-03-22 09:41 | PROG NOTE ---
[address] [address] PROGRESS NOTE PATIENT: MARTIN MARIN : 1945 MR#: [id number] ADMIT: 03/17/2017 JOB ID: [id number] DATE: 03/22/2017 SUBJECTIVE: The patient is a 72-year-old gentleman with T4 N1 transitional cell carcinoma of the urinary bladder. He was hospitalized last week with gastric perforation. He underwent laparotomy with patch closure of gastric perforation. He was intubated for about 36 hours, but was extubated successfully on March 19, 2017. He is extremely weak. He is confined to bed. He has had discussions with the Palliative Care team, plans to meet with hospice later today. OBJECTIVE: Vitals: T 37.2, P 76, R 16, BP 104/65, O2 saturation 92% on 1 L oxygen by nasal cannula. HEENT: Conjunctivae slightly pale. Mucous membranes dry. No oral lesions. Nodes: Shotty adenopathy in the neck. Chest: Decreased at the bases. Cardiac exam: Regular rate and rhythm with normal S1, S2. Abdomen: Soft. He has a LIZY drain with a small amount of serous fluid. Postsurgical changes appear stable. No signs or symptoms of active infection. Extremities: No edema. Extensive muscular wasting. 2+ distal pulses. LABORATORIES: (March 20, 2017) WBC 10.7, hemoglobin 9.5, hematocrit 31.8%, platelets 199,000. BUN 42, creatinine 1.29, glucose 103. ASSESSMENT AND PLAN: 1. Recurrent T4 transitional cell carcinoma of the urinary bladder with node involvement: The patient has several pulmonary nodules which have increased between 2-4 mm. This could be an immune response following his immunotherapy, or could represent progressive disease. At any rate, the patient is extremely debilitated at this time, and is interested in supportive care. The family will meet with hospice later today. He would like to be at home rather than at a intermediate facility, and arrangements are being made. 2. Gastric perforation: Day five status post laparotomy with patch closure of gastric perforation. There is a small amount of serosanguineous fluid in his LIZY drain. Further management per Surgery. CC: Benitez Bailon DO
[2017-03-22] MEDS: Pantoprazole 4 mg/mL 10 mL Inj IVPUSH SCH ×2 (09:48→18:36)
--- NOTE | 2017-03-22 10:48 | PCM.PALLBR ---
Palliative Care Recommendation Summary of palliative recommendations: 03/22/17 Pain- continue fentanyl CRAB BACKER with plan to change to PO starting tomorrow. GOC-patient and his are very specific re going home- no SNF and goal to engage hospice. He states he wants to at home. Reviewed with this goal would be then to avoid further hospitalizations. Reviewed code status in light of this discussion. They agree with DNR/DNI/no TF and goal for comfort. POLST is completed and signed by the patient. Will review with team re expected goal for discharge so as to inform hospice. -Symptom management (Pain/other) Pain: seems to be in chest wall and upper back, most likely due to his metastatic ds in spine with comp fx. 1. Fentanyl CRAB BACKER stopped earlier. 03/19: Started fentanyl 12.5-25mcg IV q 2 hours prn breakthrough pain. RN aware of order placed. Weakness: profound Perforated gastric ulcer: may have predated the decadron but the med was probably a component. Plan is for gastrografin swallow study through NG tube today to visualize stomach per surgery's request. and start trophic feeding if no leak per dietary. Metastatic bladder CA: progressing despite treatment. Daughter understands this. His needs confirmation from Dr. Atkins. (Unfortunately, family did not make it to meeting with Dr. Atkins planned for 7:30a.m. at pt bedside.) DPOA/Advanced Directives/POLST: 1. Code = FULL CODE currently. 2. DPOAHC is his Cora. 03/19: Palliative Care Plan is to address code status after family reviews scans with Dr. Atkins. His needs to hear about disease progression from Dr. Atkins. His daughter Luis present today Dr. Atkins rounded on pt at 730am and family was not there for planned meeting. Unlikely Dr. Atkins will return again today per RN. Dr. Ferrer contacted Dr. Atkins 03/19 and he said he would continue to offer immunotherapy to pt q 3 weeks, if pt and family wanted to keep trying it, but there is really nothing else he can offer to try to treat this cancer. Dr. Atkins thinks that hospice is appropriate at this time, if family is interested in that option. Family/emotional support: is good, and dtr are very involved. Spiritual support- -Concern for his who could benefit from spiritual as well as bereavement support Patient Goals: 1. Patient wants to be told the truth about his/her illness, even if it is unpleasant. 2. Patient would like to be told prognosis when it can be predicted, to better guide treatment decisions. His daughter feels that he is getting tired of this and has mentioned wanting it to end but difficult time talking about it. 3. Patient would choose quality of life over quantity of life, and defines quality as active and independent-His family does not think his QOL is good or that it is likely to improve in the near future. 4. Patient would request that comfort care take priority over cognitive/mental confusion. Disposition: he will want to go home and hopefully if appropriate with hospice unless Dr. Atkins feels otherwise/if more treatments likely to benefit etc. If hospice isn't engaged now family would still be interested in the future. Currently there is a hospice info visit scheduled for 03/22 at 1pm. Problems: End of Life Preferences DNR/DNI as of 03/22 Goals of Mcfp with assistance of hospice for sx management Disposition hope is for home Resuscitation Status Resuscitation Status: DNR/DNI:Do Not Resuscitate/Intubate POLST Updates/Changes Previous POLST?: No Artificially Admin Nutrition: No Artifical Nutrition by Tube POLST Discussed with: Patient POLST Review Outcome: New Form Completed . Advanced Care Planning Address: POLST, Code status change Total time 35 minutes; >50% face to face with patient and/or family, providing counselling regarding plans and recommendations, and in care coordination with his/her medical teams. Includes POLST and change of code status discussion. I also spent an additional [ ] minutes counseling for advanced care planning with the patient/the patients family/the surrogate decision maker. copies to: Ben Ferrari MD Palliative Brief Note Date of Service Mar 22, 2017 . 72 yo with known metastatic bladder CA now s/p surgical repair of perforated gastric ulcer. He has had progressive weight loss and has chronic diffuse pain now at least in part due to bone mets with T2 comp fx. Some remains incisional abd pain O: discussion with patient and his . He defines pain is tolerable with CRAB BACKER He is quite specific that he wants to go home. He is alert, OX3 and decisional, Kimberley Holland MD Mar 22, 2017 10:48
--- NOTE | 2017-03-22 11:01 | NUR ---
NUTRITION FOLLOW UP: ASSESS: 72 YO male admitted with perforated viscus that required emergent intervention; POD #4 following open repair of perforated gastric ulcer. Pt with advanced bladder cancer. Diet advanced to full liquids. Palliative care is involved for goals of care. Hospice info visit today. PMHX: Bladder ca, s/p tumor removal w/pul mets, HTN, UTI LABS: Reviewed. No new labs. MEDS: Reviewed. Fentanyl. GI: No BM noted since admit. SKIN: Piero 15 today. WT: 55.3 kg, BMI 19.1 kg/m2, UBW ~57 kg, 18.5 % wt loss x 4 mo= significant DIET: Full liquids & soft ordered. PO intake 50%. ESTIMATED NEEDS: Cancer Calories: 5160-7208 kcal/day (25-30 kcal/kg BW) Protein: 55-83 g/day (1.2-1.5g/kg BW) Fluids: ~1385 ml/day (25 ml/kg) NUTRITION DIAGNOSIS: 1) Severe pro/kcal malnutrition related to chronic disease as evidence by pt with 18.5% wt loss x4 months and visible fat/muscle loss - IMPROVING. 2) Altered GI function related to gastric perf as evidence by need for NPO diet order and emergent surgery - RESOLVING. 3) Inadequate oral intake related to decreased ability to consume sufficient energy as evidenced by current NPO status -IMPROVING. NUTRITION INTERVENTION: 1) Continue to advance diet as tolerated. Will await plan of care decisions. MONITOR/EVALUATE: Diet advance/tolerance, PO intake, GI, wt, labs, POC, nutrition status. Follow per moderate nutrition risk guidelines.
--- NOTE | 2017-03-22 11:32 | NUR ---
Palliative Care note D/A: Call from Dr. Lopez who indicates that family is requesting that their HNW visit be postponed to Wednesday03/23/17, as there are multiple visitors planned for today. Phone call to Bhargavi at [facility] and she indicates that changing until at 1300 would be ok. Phone call to [facility] and have spoken to Eryn at [facility] who advises that time has been changed to 1300 on Wednesday. Phone call to joseph Mead to alert. Dr. Lopez has informed family. P: Palliative care to follow. Judith MARTINEZ, CCM
--- NOTE | 2017-03-22 11:55 | PCM.PNMED ---
Subjective Date of Service Mar 22, 2017 Subjective 72-year-old man with metastatic transitional cell urothelial carcinoma presents with acute abdomen due to perforated gastric ulcer, status post surgery. He states that he feels tired. Minimal appetite. He reports passing flatus and stool. He now reports increasing diffuse pain, although he tends to minimize this. No dyspnea. No nausea. He is resistant to rotating pressure off his decubitus ulcers. Exam Vital Signs Vital Sign - Last Date Time Temp Pulse Resp B/P Pulse Ox O2 Delivery O2 Flow Rate FiO2 03/22/17 08:57 83 03/22/17 08:53 37.5 22 96/67 91 Room Air 03/22/17 03:18 1.00 03/19/17 07:11 25 Intake and Output 03/21/17 03/21/17 03/22/17 Cumulative From/Thru 15:00 23:00 07:00 03/17/17 18:57 - 03/22/17 06:31 Intake Total 1246 ml 1160 ml 1750 ml 86359 ml Output Total 1305 ml 558 ml 830 ml 6643 ml Balance -59 ml 602 ml 920 ml 7634 ml Intake Oral 200 ml 1160 ml 400 ml 2160 ml IV Total 1046 ml 1350 ml 54457 ml Output Urine Total 1175 ml 550 ml 830 ml 5880 ml Gastric Drainage Total 200 ml Drainage Total 130 ml 8 ml 0 ml 563 ml # Bowel Movements 0 Exam General: Cachectic but in no acute distress unless moved HEENT: sclerae anicteric, oral mucosa normal Neck: no JVD Chest: clear to auscultation Cardiac: S1S2, no murmur Abdomen: BS active, surgical bandage, nephrostomy tube, Olgan-Chambers drain to abdomen Extremities: No pedal edema; bandaged decubiti left hip bilateral sacral Neuro: Alert and mostly oriented, cranial nerves symmetric, 3/5 weakness diffusely IVs and Medications Medications Reviewed: Medications were reviewed in detail Lab and Diagnostics Result Diagram: 03/20/17 0258 03/19/17 0905 Microbiology MRSA negatvie Microbiology 03/18/17 Blood Fungal Culture, Received Pending 03/18/17 MRSA (PCR) - Final, Complete 03/18/17 Blood culture x 2 no growth to date X-Rays, CTs and MRIs Date of Service: 03/17/17 X-RAY CHEST ONE VIEW, PORTABLE IMPRESSION: 1. Small nodular opacity in the left apex measuring approximately 1 cm. The finding is nonspecific but new from the prior study. The differential includes confluent bony structures as well as neoplasm or atypical infection. Recommended a repeat PA and lateral study when clinically feasible. Dictated by: Mikhail Harris M.D. on 03/17/2017 at 20:08 Date of Service: 03/17/17 CT ANGIO CHEST PULMONARY EMBOLISM IMPRESSION: 1. Moderate amount of pneumoperitoneum within the visualized upper abdomen consistent with viscus perforation. This may be secondary to a perforated mass in the region of the gastric antrum. Recommend further evaluation with dedicated abdominal CT. 2. No evidence of pulmonary embolism. 3. Increase in size of multiple bilateral pulmonary nodules consistent with progression of metastatic disease. 4. Progression of osseous metastatic disease most prominent within the upper thoracic spine and associated mild endplate compression fractures of T2. Findings discussed with Dr. Reeder on 03/17/17 at 10 PM. Dictated by: Mikhail Harris M.D. on 03/17/2017 at 21:57 Date of Service: 03/17/17 CT ABDOMEN AND PELVIS WITHOUT CONTRAST IMPRESSION: 1. Moderate amount of free peritoneal air in the upper abdomen consistent with viscus perforation. The site of perforation is not definitively visualized. The most likely cause of perfusion is gastric or duodenal ulcer. 2. Retroperitoneal adenopathy consistent with metastasis. 3. The regular appearance of bladder compatible with neoplasm. 4. Bilateral ureter stents. There is a left percutaneous nephrostomy. Mild left pelviectasis. 5. Lytic metastasis involving lumbar spine and right hemipelvis. 6. Extensive atherosclerosis. There is intimal displacement and distal abdominal aorta suspicious for focal dissection. 7. A large amount of stool in colon. Dictated by: Jade Zurita M.D. on 03/18/2017 at 8:48 Date of Service: 03/18/17 X-RAY CHEST ONE VIEW, PORTABLE IMPRESSION: 1. Support lines and tubes as above. 2. Abnormal airspace opacity within the mid left lung and left upper lobe consistent with aspiration versus pneumonia. 3. Scattered nodules are better seen on CT, suspicious for metastatic disease. 4. Streaky opacity within the medial left lung base likely related to subsegmental atelectasis. Dictated by: Nathaniel Ibarra RRA Interpreted: Jade Zurita MD on 03/18/2017 at 9:46 . Assessment & Plan # Perforated gastric ulcer status post exploratory laparotomy, washout, Branden patch application, and drain placement, acute, present on admission. Under therapy - Postoperative abdominal care; LIZY drain. - Monitor CBC - Advance diet to soft on 03/22 - Patient has elected to eat despite failing swallow assessment, he is DO NOT INTUBATE # Goals of care. Extensive discussion of goals of care with his at bedside today. Patient verbalizes that he wants to walk and to be able to drink fluids. Acknowledges anorexia. He and were informed of difficulty in recovering functional status in the setting of advanced cancer with anorexia and cachexia. I presented choices of SNF with rehabilitation efforts, versus home with hospice. They seem inclined toward the latter. - Hospice evaluation today # chronic cancer pain. Well controlled at present. - Initiate fentanyl PCI # Acute hypoxemic respiratory failure, resolved. - Patient extubated 03/19, no signs of ongoing respiratory distress # Acute anemia status post 2U pRBC, present on admission. On admit: Hb 9.0, decreased to 7.2; received 2 units packed red blood cells prior to OR - Repeat hemoglobin: 13.3 postoperatively - Monitor and transfuse as needed # Severe protein calorie malnutrition, chronic. Ongoing - On admit: BMI 17 # Left nephrostomy tube and ureteral stent placement, chronic. Presumed stable - No Pavon in place as patient has nephrostomy tube; he reports that he is due for change in collection bag - Monitor output # Chronic kidney failure. Presumed stable. On admit: Cr 1.61; repeat postop 1.28 - Monitor periodically # Bilateral Sacral decubiti. Present on admission. Patient is resistant to offloading. - Continue wound care and decubitus precautions Pain Evaluation: Adequate Pain Control GI Prophylaxis: Proton Pump Inhibitor VTE Prophylaxis: SCDs VTE Mechanical Devices: Intermittant Pneumatic CD Resuscitation Status: DNR/DNI:Do Not Resuscitate/Intubate Time spent 35 minutes Oliver Sherman MD Mar 22, 2017 11:55
[2017-03-22] MEDS: Meropenem Inj 2,000 MG in 0.9% Sodium Chloride 100 ML IV SCH ×2 (11:57→22:49)
--- NOTE | 2017-03-22 16:21 | NUR ---
ANTONIO signed BONY Brown
[2017-03-22] MEDS: Ondansetron 2 mg/mL 2 mL Inj IVPUSH PRN ×2 (16:48→21:06)
[2017-03-22] MEDS: fentaNYL PCA 10 mCg/mL 30 mL Inj IV PRN (18:24)
--- NOTE | 2017-03-22 19:29 | NUR ---
Skin/Incontinence/pain Pt encouraged by MD to cooperate with Q2 turns. Pt agreeable in the presence of MD, and this RN with AIRFRAME TECHNICIAN help was able to turn Pt to his right side. When approached later in shift to turn, pt stated that he had already turned himself from his side to his back and would not cooperate in turning to left side. Pt has been incontinent of stool x2 during shift, after the second episode he voiced how upsetting it was to loose control of his bowels, he made the statement " I don't know how I am going to do this anymore" Pt very stoic about his pain and needs both reminders and education on the use of his BUSINESS LIAISON OFFICER.
[2017-03-23] VITALS (9 sets, daily range): BP systolic 88–103; BP diastolic 60–70; PULSE 80–120; RESP 15–24; O2SAT 93–98
[2017-03-23] MEDS: Heparin 5,000 Unit/mL Inj SUBQ SCH ×2 (01:34→10:53)
[2017-03-23] MEDS: Ondansetron 2 mg/mL 2 mL Inj IVPUSH PRN ×2 (01:34→05:48)
[2017-03-23] MEDS: 0.9% Sodium Chloride 1,000 ML IV SCH ×2 (02:58→10:57)
[2017-03-23 04:38] LABS: BASOPHILS % (AUTO) 0.1 % (0-3); EOSINOPHILS % (AUTO) 0.1 % (0-5); MONOCYTES % (AUTO) 3.5 % (4-12); Mean Corpuscular Hemoglobin 26.8 pg (27.0-35.0); NEUTROPHILS % (AUTO) 93.8 % (40-74); Platelet Count 229 bil/L (150-400)
--- NOTE | 2017-03-23 05:20 | NUR ---
Q2/Nausea/Emesis/HAND TOUCH UP PAINTER Had perodic bloody emesis, no labs since 03/20/17, paged hospitalist and ordered labs . denies pain, needs to be reminded to use HAND TOUCH UP PAINTER, Nephrostomy tube draining greenish color urine, LIZY draining sero-sanguineous drainage. 120 Ml . 1 L O2 per NC, A&O x 3 , . Bandages on tubes and sacrum CDI. Tele S-Tach , 110-129. , Cora in room assisting with ADL and information.
[2017-03-23] MEDS ORDERED: Morphine ER 15 mg (MS Contin) Tablet PO SCH (08:30)
--- NOTE | 2017-03-23 09:27 | PCM.PNSURG ---
Subjective Date of Service: Mar 23, 2017 Date of Service: Mar 23, 2017 Visit Information: Reason for Visit Perforated Viscus,Gi Bleed,Anemia,Cancer Surgery/Surgery Date Post-Op Day # 6 Date of Admission: Mar 17, 2017 at 22:54 Hospital Day # 7 Subjective: Patient seen and evaluated today. Reports improved pain control with only minimal cutaneous postoperative pain. Notes nausea yesterday which culminated in several (~3) bouts of bloody emesis last noc. Feels no nausea today. Awaiting palliative care discussion this pm. Postop General: No Chest Pain Gastrointestinal: Tolerating Oral Feedings, No N/V (since middle of last night. ), Passing Stool Pain Management: TECHNOLOGY ADVISOR without Basal, IV Push Neurological: Weakness Postop Activity: Other (Bed rest; awaiting PT eval.) Objective Vital Sign- Last 8 Hours Date Time Temp Pulse Resp B/P Pulse Ox O2 Delivery O2 Flow Rate FiO2 03/23/17 03:21 36.5 120 16 88/61 98 Nasal Cannula 1.00 Intake and Output- Last 8 Hour 03/23/17 Cumulative From/Thru 07:00 03/17/17 18:57 - 03/23/17 06:11 Intake Total 1201 ml 52427 ml Output Total 560 ml 8053 ml Balance 641 ml 9319 ml Intake Oral 200 ml 2460 ml IV Total 1001 ml 53146 ml Output Urine Total 450 ml 7180 ml Gastric Drainage Total 200 ml Drainage Total 110 ml 673 ml # Bowel Movements 1 General: Oriented X3, Cooperative, No Acute Distress, Mild Distress Lungs: Clear to Auscultation, Diminished Heart: Regular Rate/Rhythm Abdomen: Soft, Appropriately tender, Non-distended SURGICAL WOUND : Wound General Appearence: Steri Strips, Intact, Well Approximated, Incision Healing, No Erythema Dressing & Drainage Status: Intact, Dressing Removed (steri strips remaining.), No Purulent Drainage, No Odor Wound Drainage Type: LIZY Drain #1 (serosanguinous) Result Diagram: 03/23/1742303/23/17423 Diagnostics: 110 mL out of LIZY drain today. 0 output recorded yesterday. Assessment & Plan Impression The patient is a 72-year-old male with metastatic bladder cancer, status post day #6 laparotomy and patch closure of gastric perforation. Continues to be profoundly weak. Episode of dark bloody emesis last night which seems to have resolved although H/H now down at 7.8/26.2; would likely be helped by transfusion. If continued drop of H/H then suggest GI eval for possible gastric bleed source. Surgical wounds healing and well approximated. LIZY output appears to be minimal but will watch this PM before likely dc'ing. Problems: Plan 1. Trend CBC, repeat in AM 2. Likely dc LIZY this pm 3. Continue soft food 4. Removed abdominal dressing 5. Will follow emesis and discuss management with GI Pain Management: Fentanyl TECHNOLOGY ADVISOR with Morphine prn VTE Prophylaxis: Sub-Q Heparin (Unfractionated), SCDs Resuscitation Status: DNR/DNI:Do Not Resuscitate/Intubate Mike Alcala PA-C Mar 23, 2017 09:27
[2017-03-23] MEDS: Pantoprazole 4 mg/mL 10 mL Inj IVPUSH SCH (09:29)
[2017-03-23] MEDS: Meropenem Inj 2,000 MG in 0.9% Sodium Chloride 100 ML IV SCH (11:18)
[2017-03-23] MEDS ORDERED: fentaNYL 2,500 mCg/250 mL 2,500 MCG in IV Premix 1 EACH IV SCH (11:24)
[2017-03-23] MEDS ORDERED: Artificial Tears 15 mL Ophthalmic Solution AFFECT_EYE PRN (11:25)
[2017-03-23] MEDS ORDERED: Glycopyrrolate 0.2 MG/ML 1mL Inj IVPUSH PRN (11:25)
[2017-03-23] MEDS ORDERED: Haloperidol 5 mg/mL Inj IVPUSH PRN (11:25)
[2017-03-23] MEDS ORDERED: Atropine 1% 5 mL Ophthalmic Solution PO PRN (11:25)
[2017-03-23] MEDS ORDERED: Ondansetron 2 mg/mL 2 mL Inj IVPUSH PRN (11:25)
--- NOTE | 2017-03-23 13:32 | NUR ---
spiritual care: follow up/pall conversational visit with pt's . pt dozing, but seemed to follow main concerns of conversation. reflected on emotional moment and practical concerns including updates to family members and future planning. Reflecting on couple's long marriage and pt's qualities. Pt able to make needs known. Family anticipating hospice intake visit.
--- NOTE | 2017-03-23 14:37 | NUR ---
Comfort Care Pt placed on comfort care. ABX, CLEAN RICE BROKER fentanyl, NS IV fluids and Telemetry dc'd tech notified. Pt started on continuous infusion IV fentanyl at 2.5ml/hr. Pt RR 18, HR96. Pt appears to be sleeping comfortably.
--- NOTE | 2017-03-23 15:51 | NUR ---
Social Work Note: Continued Discharge Planning Data& Assessment: Per MD pt is transitioning to comfort care. Per Palliative Care MD, pt has internal bleeding and is declining transfusions. Pt is likely to pass within the next 24 hours. If pt does not pass in the next 24 hours, SW and pt family to proceed with plan to discharge home with hospice if stable. SW to continue to follow and available if any needs arise with pt family. Plan: Pt is likely to pass during this hospitalization. SW to continue to follow and available if any needs arise with pt family. BONY Brown
--- NOTE | 2017-03-23 15:51 | PCM.PNMED ---
Subjective Date of Service Mar 23, 2017 Subjective 72-year-old man with metastatic transitional cell urothelial carcinoma presents with acute abdomen due to perforated gastric ulcer, status post surgery. He states that he feels tired. Episodes of hematemesis over the past 24 hours. Pain control is adequate. No dyspnea. No nausea. He is resistant to rotating pressure off his decubitus ulcers. He voices a desire to go home with hospice, but is currently unable to mobilize from bed. Exam Vital Signs Vital Sign - Last Date Time Temp Pulse Resp B/P Pulse Ox O2 Delivery O2 Flow Rate FiO2 03/23/17 14:47 96 18 03/23/17 12:31 36.8 103/70 93 Nasal Cannula 1.00 03/19/17 07:11 25 Intake and Output 03/22/17 03/22/17 03/23/17 Cumulative From/Thru 15:00 23:00 07:00 03/17/17 18:57 - 03/23/17 06:11 Intake Total 1894 ml 1201 ml 66141 ml Output Total 850 ml 560 ml 8053 ml Balance 1044 ml 641 ml 9319 ml Intake Oral 100 ml 200 ml 2460 ml IV Total 1794 ml 1001 ml 76793 ml Output Urine Total 850 ml 450 ml 7180 ml Gastric Drainage Total 200 ml Drainage Total 110 ml 673 ml # Bowel Movements 1 1 Exam General: Cachectic but in no acute distress unless moved HEENT: sclerae anicteric, oral mucosa normal Neck: no JVD Chest: clear to auscultation Cardiac: S1S2, no murmur Abdomen: BS active, not acutely tender, surgical bandage, nephrostomy tube, Logan-Chambers drain to abdomen Extremities: No pedal edema; bandaged decubiti left hip bilateral sacral Neuro: Alert and oriented, cranial nerves symmetric, 3/5 weakness diffusely IVs and Medications Medications Reviewed: Medications were reviewed in detail Lab and Diagnostics Result Diagram: 03/23/174 03/23/17423 Microbiology MRSA negatvie Microbiology 03/18/17 Blood Fungal Culture, Received Pending 03/18/17 MRSA (PCR) - Final, Complete 03/18/17 Blood culture x 2 no growth to date X-Rays, CTs and MRIs Date of Service: 03/17/17 X-RAY CHEST ONE VIEW, PORTABLE IMPRESSION: 1. Small nodular opacity in the left apex measuring approximately 1 cm. The finding is nonspecific but new from the prior study. The differential includes confluent bony structures as well as neoplasm or atypical infection. Recommended a repeat PA and lateral study when clinically feasible. Dictated by: Mikhail Harris M.D. on 03/17/2017 at 20:08 Date of Service: 03/17/17 CT ANGIO CHEST PULMONARY EMBOLISM IMPRESSION: 1. Moderate amount of pneumoperitoneum within the visualized upper abdomen consistent with viscus perforation. This may be secondary to a perforated mass in the region of the gastric antrum. Recommend further evaluation with dedicated abdominal CT. 2. No evidence of pulmonary embolism. 3. Increase in size of multiple bilateral pulmonary nodules consistent with progression of metastatic disease. 4. Progression of osseous metastatic disease most prominent within the upper thoracic spine and associated mild endplate compression fractures of T2. Findings discussed with Dr. Reeder on 03/17/17 at 10 PM. Dictated by: Mikhail Harris M.D. on 03/17/2017 at 21:57 Date of Service: 03/17/17 CT ABDOMEN AND PELVIS WITHOUT CONTRAST IMPRESSION: 1. Moderate amount of free peritoneal air in the upper abdomen consistent with viscus perforation. The site of perforation is not definitively visualized. The most likely cause of perfusion is gastric or duodenal ulcer. 2. Retroperitoneal adenopathy consistent with metastasis. 3. The regular appearance of bladder compatible with neoplasm. 4. Bilateral ureter stents. There is a left percutaneous nephrostomy. Mild left pelviectasis. 5. Lytic metastasis involving lumbar spine and right hemipelvis. 6. Extensive atherosclerosis. There is intimal displacement and distal abdominal aorta suspicious for focal dissection. 7. A large amount of stool in colon. Dictated by: Jade Zurita M.D. on 03/18/2017 at 8:48 Date of Service: 03/18/17 X-RAY CHEST ONE VIEW, PORTABLE IMPRESSION: 1. Support lines and tubes as above. 2. Abnormal airspace opacity within the mid left lung and left upper lobe consistent with aspiration versus pneumonia. 3. Scattered nodules are better seen on CT, suspicious for metastatic disease. 4. Streaky opacity within the medial left lung base likely related to subsegmental atelectasis. Dictated by: Nathaniel Ibarra RRA Interpreted: Jade Zurita MD on 03/18/2017 at 9:46 . Assessment & Plan # Perforated gastric ulcer status post exploratory laparotomy, washout, Branden patch application, and drain placement, acute, present on admission. Recurrent hematemesis on 03/23/17 suggests ongoing upper GI pathology, rebleed from gastric ulcer versus stress gastritis. - Postoperative abdominal care; LIZY drain. - Monitor CBC; transfusion threshold proximally 7, but consider goals of care as hospice meet with patient - Hold on advancement of diet until hematemesis results - Patient has elected to eat despite failing swallow assessment, diet AGAINST MEDICAL ADVICE, he is DO NOT INTUBATE # Acute GI blood loss anemia, present on admission. On admit: Hb 9.0, decreased to 7.2; received 2 units packed red blood cells prior to OR - Repeat hemoglobin: 13.3 postoperatively - Monitor and transfuse as needed # Chronic cancer pain. Adequate controlled at present. - Continue fentanyl PCI # Acute hypoxemic respiratory failure, resolved. - Patient extubated 03/19, no signs of ongoing respiratory distress # Severe protein calorie malnutrition, chronic. Ongoing - On admit: BMI 17 # Left nephrostomy tube and ureteral stent placement, chronic. Presumed stable - No Pavon in place as patient has nephrostomy tube; he reports that he is due for change in collection bag - Monitor output # Chronic kidney failure. Presumed stable. On admit: Cr 1.61; improving. - Monitor periodically # Bilateral Sacral decubiti. Present on admission. Patient is resistant to offloading. - Continue wound care and decubitus precautions # Goals of care. Extensive discussion of goals of care with his at bedside today. Patient verbalizes that he wants to walk and to be able to drink fluids. Acknowledges anorexia. He and were informed of difficulty in recovering functional status in the setting of advanced cancer with anorexia and cachexia. I presented choices of SNF with rehabilitation efforts, versus home with hospice. They seem inclined toward the latter. - Hospice evaluation today . GI Prophylaxis: Proton Pump Inhibitor VTE Prophylaxis: Sub-Q Heparin (Unfractionated), SCDs VTE Mechanical Devices: Intermittant Pneumatic CD Resuscitation Status: DNR/DNI:Do Not Resuscitate/Intubate Time spent 35 minutes Oliver Sherman MD Mar 23, 2017 15:51
--- NOTE | 2017-03-23 16:02 | PROG NOTE ---
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 He underwent laparotomy with patch closure of a gastric perforation last week. He is recovering postoperatively. He is profoundly weak. Appetite is poor. He has had increasing abdominal pain. He is opting for palliative care. He would like to be home with hospice, and to avoid further hospitalizations. OBJECTIVE: Vitals: T 36.3, P 109, R 20, BP 91/60. HEENT: Conjunctivae pale. Mucous membranes slightly dry. No oral lesions. Chest: Decreased at the bases. Cardiac examination: Regular rate and rhythm. Abdomen: Postsurgical changes. Positive bowel tones. Extremities: No edema. Extensive muscular wasting. LABORATORIES: WBC 12.7, hemoglobin 7.8, hematocrit 26.2%, platelets 229,000. BUN 48, creatinine 1.11, glucose 142. ASSESSMENT AND PLAN: 1. Recurrent T4 N1 M1 transitional cell carcinoma of the urinary bladder: The patient has some multiple pulmonary nodules consistent with metastatic disease. These have been enlarging while on immunotherapy. Based on these findings and the patient's debilitated state, he and his are interested in going home with hospice, intending to receive palliative care. 2. Gastric perforation: Day six status post laparotomy with patch closure of gastric perforation. He has had serosanguineous fluid in his LIZY drain. His hemoglobin and hematocrit continue to decline from 42.5% on March 18 to 35% on March 19 to 31.8% on March 20 to the current level of 26.2%. If the patient wished to receive palliative transfusion support, that could be arranged through the hospitalist team. It is unclear if there is any further surgical role at this time.
--- NOTE | 2017-03-23 16:58 | NUR ---
spiritual care: pall care/follow up supportive listening and exploration of values with pt's as she visited with friend. coping, grieving, planning
--- NOTE | 2017-03-23 17:00 | PCM.PALLBR ---
Palliative Care Recommendation Summary of palliative recommendations: 03/23/17--UGI bleed with increasing abd pain. Goals of care reviewed with his since pt cannot participate. Reviewed option of transfusions if nec, possible EGD and further treatments which would be aggressive., His requests comfort only. She feels this would only prolong his suffering and at this point requests no transfusion, no interventions except comfort meds. I would expect pt to in the next 24-48 hours. Meds changed to comfort and started on continuous fentanyl drip and other comfort orders. Hospice is notified he is likely to in hospital. 03/22/17 Pain- continue fentanyl CHOCOLATE PACKER with plan to change to PO starting tomorrow. GOC-patient and his are very specific re going home- no SNF and goal to engage hospice. He states he wants to at home. Reviewed with this goal would be then to avoid further hospitalizations. Reviewed code status in light of this discussion. They agree with DNR/DNI/no TF and goal for comfort. POLST is completed and signed by the patient. Will review with team re expected goal for discharge so as to inform hospice. -Symptom management (Pain/other) Pain: seems to be in chest wall and upper back, most likely due to his metastatic ds in spine with comp fx. 1. Fentanyl CHOCOLATE PACKER stopped earlier. 03/19: Started fentanyl 12.5-25mcg IV q 2 hours prn breakthrough pain. RN aware of order placed. Weakness: profound Perforated gastric ulcer: may have predated the decadron but the med was probably a component. Plan is for gastrografin swallow study through NG tube today to visualize stomach per surgery's request. and start trophic feeding if no leak per dietary. Metastatic bladder CA: progressing despite treatment. Daughter understands this. His needs confirmation from Dr. Atkins. (Unfortunately, family did not make it to meeting with Dr. Atkins planned for 7:30a.m. at pt bedside.) DPOA/Advanced Directives/POLST: 1. Code = FULL CODE currently. 2. DPOAHC is his Cora. 03/19: Palliative Care Plan is to address code status after family reviews scans with Dr. Atkins. His needs to hear about disease progression from Dr. Atkins. His daughter Luis present today Dr. Atkins rounded on pt at 730am and family was not there for planned meeting. Unlikely Dr. Atkins will return again today per RN. Dr. Ferrer contacted Dr. Atkins 03/19 and he said he would continue to offer immunotherapy to pt q 3 weeks, if pt and family wanted to keep trying it, but there is really nothing else he can offer to try to treat this cancer. Dr. Atkins thinks that hospice is appropriate at this time, if family is interested in that option. Family/emotional support: is good, and dtr are very involved. Spiritual support- -Concern for his who could benefit from spiritual as well as bereavement support Patient Goals: 1. Patient wants to be told the truth about his/her illness, even if it is unpleasant. 2. Patient would like to be told prognosis when it can be predicted, to better guide treatment decisions. His daughter feels that he is getting tired of this and has mentioned wanting it to end but difficult time talking about it. 3. Patient would choose quality of life over quantity of life, and defines quality as active and independent-His family does not think his QOL is good or that it is likely to improve in the near future. 4. Patient would request that comfort care take priority over cognitive/mental confusion. Disposition: he will want to go home and hopefully if appropriate with hospice unless Dr. Atkins feels otherwise/if more treatments likely to benefit etc. If hospice isn't engaged now family would still be interested in the future. Currently there is a hospice info visit scheduled for 03/22 at 1pm. Problems: End of Life Preferences DNR/DNI as of 03/22 4.25.17--comfort care Goals of Long-Term with assistance of hospice for sx management Disposition hope is for home Resuscitation Status Resuscitation Status: DNR/DNI:Do Not Resuscitate/Intubate POLST Updates/Changes Previous POLST?: No Artificially Admin Nutrition: No Artifical Nutrition by Tube POLST Discussed with: Patient POLST Review Outcome: New Form Completed . Advanced Care Planning Address: Comfort care Pain: Moderate Symptom management: Nausea, Dyspnea, Pain Total time 50 minutes; >50% face to face with patient and/or family, providing counselling regarding plans and recommendations, and in care coordination with his/her medical teams. Majority spent in F2F with his , coordination of care and med management ind of life. I also spent an additional [ ] minutes counseling for advanced care planning with the patient/the patients family/the surrogate decision maker. copies to: Ben Ferrari MD Palliative Brief Note Date of Service Mar 23, 2017 . 72-year-old with known metastatic bladder CA who was admitted with a perforated gastric ulcer and an upper GI bleed. This was surgically repaired but concern for large friable ulcer. Yesterday evening he started to have black stool and increased nausea. He has had emesis of broderick blood and has had 3 or 4 stools in the last 8-10 hours, his HR has increased and BP decreased as has his H/H. He has been having more abd pain. Also significant difficulty taking his oral MS ER this AM which was an attempt to get him home with hospice.His identifies he had a bad night. He had said yesterday that he wanted to go home with hospice. Now midday-barely arousable. O: BP at 88-90/ HR 114 Will not arouse to very cold hands lungs clear Abd- soft, winces with pain to deep palpation epig and LLQ lab Hgb-10--9.5--7.8 Kimberley Lopez MD Mar 23, 2017 17:00
[2017-03-23] MEDS ORDERED: 0.9% Sodium Chloride 250 ML ONE (19:42)
[2017-03-24] VITALS (8 sets, daily range): BP systolic 96; BP diastolic 58; PULSE 66–93; RESP 12–18; O2SAT 97–99
--- NOTE | 2017-03-24 03:04 | NUR ---
Comfort/ On comfort care, Fentanyl Gtt @ 25 Mcg/hr. NS @ 15 for tko . O2 @ 2 L per NC, turns for comfort only , bundling care to minimize disturbance , Black stool , 180 Ml out for LIZY drain. Seems as comfortable as possible, Turns for brief changes are very uncomfortable. Not on telemetry, VS Q2 hr , HR and RR only. in room assisting w ADL.
[2017-03-24] MEDS: Pantoprazole 4 mg/mL 10 mL Inj IVPUSH SCH (08:34)
--- NOTE | 2017-03-24 08:39 | NUR ---
fentanyl drip, per MD order, changed to 35mcg/hr at 0835
--- NOTE | 2017-03-24 08:42 | PCM.PALLBR ---
Palliative Care Recommendation Summary of palliative recommendations: 03/24/17--.Increase fentanyl from 25 to 35mcg/hr for better pain relief. Discussed with RN. 03/23/17-- UGI bleed with increasing abd pain. Goals of care reviewed with his since pt cannot participate. Reviewed option of transfusions if nec, possible EGD and further treatments which would be aggressive., His requests comfort only. She feels this would only prolong his suffering and at this point requests no transfusion, no interventions except comfort meds. Dr Lopez thinks pt likely to in the next 24-48 hours. Meds changed to comfort and started on continuous fentanyl drip and other comfort orders. Hospice is notified he is likely to in hospital. DPOA/Advanced Directives/POLST: 1. Code = FULL CODE currently. 2. DPOAHC is his Cora. Family/emotional support: is good, and dtr are very involved. Spiritual support- -Concern for his who could benefit from spiritual as well as bereavement support Patient Goals: 1. Patient wants to be told the truth about his/her illness, even if it is unpleasant. 2. Patient would like to be told prognosis when it can be predicted, to better guide treatment decisions. His daughter feels that he is getting tired of this and has mentioned wanting it to end but difficult time talking about it. 3. Patient would choose quality of life over quantity of life, and defines quality as active and independent-His family does not think his QOL is good or that it is likely to improve in the near future. 4. Patient would request that comfort care take priority over cognitive/mental confusion. Disposition: expectant in hospital. Problems: End of Life Preferences DNR/DNI as of 03/2203.23.17--comfort care Goals of Retirement with assistance of hospice for sx management Disposition hope is for home Resuscitation Status Resuscitation Status: DNR/DNI:Do Not Resuscitate/Intubate POLST Updates/Changes Previous POLST?: No Artificially Admin Nutrition: No Artifical Nutrition by Tube POLST Discussed with: Patient POLST Review Outcome: New Form Completed . Pain: Moderate Total time 65 minutes; >50% face to face with patient and/or family, providing counselling regarding plans and recommendations, and in care coordination with his/her medical teams. Palliative Brief Note Date of Service Mar 24, [address] Ferrer following up today (x cover for Dr. Lopez) to evauate efficacy of pain relief and pt's overall comfort. . 72-year-old with known metastatic bladder CA who was admitted with a perforated gastric ulcer and an upper GI bleed. This was surgically repaired but concern for large friable ulcer. Yesterday evening he started to have black stool and increased nausea. He has had emesis of broderick blood and has had 3 or 4 bloody stools yesterday. His HR increased and BP decreased as has his H/H in response to blood loss. He was having more abdominal pain yesterday and difficulties swallowing pain pills. He was converted to a fentanyl infusion. This morning, he is groaning, brow furrowed, shakes his head "no" to pain. Pall Care team aware that he is afraid of pain meds and tried not to take them at home prior to this admission, but his pain was increasing and he had to. Two days ago he told his he wanted to go home with hospice, that he would like to at home, but he has been having very difficult time with pain. Item Value Date Time Oxygen Flow Rate 2.00 L/min 03/24/17820 Oxygen Delivery Method Nasal Cannula 03/24/17820 Vital Signs Label Value Date Time Bedside Pulse Oximetry 98 % 03/24/17820 Respiratory Rate 16 bpm 03/24/17820 Pulse 66 03/24/17820 O: pt lying in bed, one pillow under head, eyes lungs clear Abd- soft, winces with pain to deep palpation epig and LLQ Hbg 7.8, Hct 26.2 Carline Ferrer MD Mar 24, 2017 08:42 stools yesterday. His HR increased and BP decreased as has his H/H in response to blood loss. He was having more abdominal pain yesterday and difficulties swallowing pain pills. He was converted to a fentanyl infusion. This morning, he is groaning, brow furrowed, shakes his head "no" to pain. Pall Care team aware that he is afraid of pain meds and tried not to take them at home prior to this admission, but his pain was increasing and he had to. Two days ago he told his he wanted to go home with hospice, that he would like to at home, but he has been having very difficult time with pain. Item Value Date Time Oxygen Flow Rate 2.00 L/min 03/24/17820 Oxygen Delivery Method Nasal Cannula 03/24/17820 Vital Signs Label Value Date Time Bedside Pulse Oximetry 98 % 03/24/17820 Respiratory Rate 16 bpm 03/24/17820 Pulse 66 03/24/17820 O: pt lying in bed, one pillow under head, eyes lungs clear Abd- soft, winces with pain to deep palpation epig and LLQ Hbg 7.8, Hct 26.2 Carline Ferrer MD Mar 24, 2017 08:42
[2017-03-24] MEDS ORDERED: fentaNYL 2,500 mCg/250 mL 2,500 MCG in IV Premix 1 EACH IV SCH (08:47)
--- NOTE | 2017-03-24 09:13 | PCM.PNMED ---
Subjective Date of Service Mar 24, 2017 Subjective Patient is sedated, not able to speak. ROS and subjective are not obtainable. Exam Vital Signs Vital Sign - Last Date Time Temp Pulse Resp B/P Pulse Ox O2 Delivery O2 Flow Rate FiO2 03/24/17 08:21 66 16 98 Nasal Cannula 2.00 03/23/17 12:31 36.8 103/70 03/19/17 07:11 25 Intake and Output 03/23/17 03/23/17 03/24/17 Cumulative From/Thru 15:00 23:00 07:00 03/17/17 18:57 - 03/24/17 06:21 Intake Total 1145 ml 500 ml 577 ml 60080 ml Output Total 452 ml 860 ml 9365 ml Balance 1145 ml 48 ml -283 ml 97304 ml Intake Oral 500 ml 400 ml 3360 ml IV Total 1145 ml 177 ml 03992 ml Output Urine Total 550 ml 7730 ml Stool Total 450 ml 450 ml Gastric Drainage Total 200 ml Drainage Total 310 ml 983 ml Estimated Blood Loss 2 ml 2 ml # Bowel Movements 3 4 Exam Patient is somnolent, minimally arousable. Anicteric sclera. Lungs are clear with normal rate and effort Heart is regular without murmur gallop or rub Abdomen soft and appears to be tender with palpation. Extremities are free of edema. Skin is free of rash or lesions. IVs and Medications Medications Reviewed: Medications were reviewed in detail Lab and Diagnostics Result Diagram: 03/23/17 0424 03/23/17 0424 Microbiology MRSA negatvie Microbiology 03/18/17 Blood Fungal Culture, Received Pending 03/18/17 MRSA (PCR) - Final, Complete 03/18/17 Blood culture x 2 no growth to date X-Rays, CTs and MRIs Date of Service: 03/17/17 X-RAY CHEST ONE VIEW, PORTABLE IMPRESSION: 1. Small nodular opacity in the left apex measuring approximately 1 cm. The finding is nonspecific but new from the prior study. The differential includes confluent bony structures as well as neoplasm or atypical infection. Recommended a repeat PA and lateral study when clinically feasible. Dictated by: Mikhail Harris M.D. on 03/17/2017 at 20:08 Date of Service: 03/17/17 CT ANGIO CHEST PULMONARY EMBOLISM IMPRESSION: 1. Moderate amount of pneumoperitoneum within the visualized upper abdomen consistent with viscus perforation. This may be secondary to a perforated mass in the region of the gastric antrum. Recommend further evaluation with dedicated abdominal CT. 2. No evidence of pulmonary embolism. 3. Increase in size of multiple bilateral pulmonary nodules consistent with progression of metastatic disease. 4. Progression of osseous metastatic disease most prominent within the upper thoracic spine and associated mild endplate compression fractures of T2. Findings discussed with Dr. Reeder on 03/17/17 at 10 PM. Dictated by: Mikhail Harris M.D. on 03/17/2017 at 21:57 Date of Service: 03/17/17 CT ABDOMEN AND PELVIS WITHOUT CONTRAST IMPRESSION: 1. Moderate amount of free peritoneal air in the upper abdomen consistent with viscus perforation. The site of perforation is not definitively visualized. The most likely cause of perfusion is gastric or duodenal ulcer. 2. Retroperitoneal adenopathy consistent with metastasis. 3. The regular appearance of bladder compatible with neoplasm. 4. Bilateral ureter stents. There is a left percutaneous nephrostomy. Mild left pelviectasis. 5. Lytic metastasis involving lumbar spine and right hemipelvis. 6. Extensive atherosclerosis. There is intimal displacement and distal abdominal aorta suspicious for focal dissection. 7. A large amount of stool in colon. Dictated by: Jade Zurita M.D. on 03/18/2017 at 8:48 Date of Service: 03/18/17 X-RAY CHEST ONE VIEW, PORTABLE IMPRESSION: 1. Support lines and tubes as above. 2. Abnormal airspace opacity within the mid left lung and left upper lobe consistent with aspiration versus pneumonia. 3. Scattered nodules are better seen on CT, suspicious for metastatic disease. 4. Streaky opacity within the medial left lung base likely related to subsegmental atelectasis. Dictated by: Nathaniel Ibarra RR Interpreted: Jade Zurita MD on 03/18/2017 at 9:46 . Assessment & Plan # Perforated gastric ulcer status post exploratory laparotomy, washout, Branden patch application, and drain placement, acute, present on admission. Recurrent hematemesis on 03/23/17 suggests ongoing upper GI pathology, rebleed from gastric ulcer versus stress gastritis. -Patient is now comfort care on a fentanyl drip. # Acute GI blood loss anemia, present on admission. On admit: Hb 9.0, decreased to 7.2; received 2 units packed red blood cells prior to OR Comfort care # Chronic cancer pain. Adequate controlled at present. - Continue fentanyl PCI # Acute hypoxemic respiratory failure, resolved. - Patient extubated 03/19, no signs of ongoing respiratory distress # Severe protein calorie malnutrition, chronic. Ongoing - On admit: BMI 17 # Left nephrostomy tube and ureteral stent placement, chronic. Presumed stable - No Pavon in place as patient has nephrostomy tube; he reports that he is due for change in collection bag - Comfort Care # Chronic kidney failure. Presumed stable. On admit: Cr 1.61; improving. -Comfort Care # Bilateral Sacral decubiti. Present on admission. Patient is resistant to offloading. - Continue wound care and decubitus precautions # Goals of care. The patient is expected to pass in the hospital. His fentanyl drip which is being titrated and managed by palliative care. GI Prophylaxis: Proton Pump Inhibitor VTE Prophylaxis: Sub-Q Heparin (Unfractionated), SCDs VTE Mechanical Devices: Intermittant Pneumatic CD Resuscitation Status: DNR/DNI:Do Not Resuscitate/Intubate Ian Mcintyre MD Mar 24, 2017 09:13
--- NOTE | 2017-03-24 13:01 | NUR ---
Palliative care note D/A: Phone call to Tressa LOVETT today to discuss hospice arrangements, if needed. Have alerted her to the fact that this worker cancelled [facility] arrangements, so that if [facility] is needed to provide care in the home, new arrangements will need to be made. Tressa booker. P: Palliative care to follow. Judith MARTINEZ, CCM
--- NOTE | 2017-03-24 13:30 | NUR ---
Palliative care note (late note for 03/23/17) D/A: Case discussed early in PC rounds. Dr. Lopez noted change in condition and pt may be comfort care here. Pt expressing that he would like to get home, if possible. Discussed with Dr. Lopez the possibility of a transfer home on 03/24/17, if pt stable enough to make the lengthy transfer. Call to Jessica (JONO) to discuss the possibility of an open. Agency can open potentially on but [place] would [place] 0830 [place] 03[place]. Phone call to Tressa LOVETT to explain. Case discussed later with Dr. Lopez who indicates that pt will not be able to transfer. Phone call to Jessica (JONO) to explain. P: Palliative care to follow. Judith MARTINEZ, CCM
--- NOTE | 2017-03-24 18:42 | NUR ---
spiritual care: follow conversational support to family as they gather/process/grieve/plan. Disposition has been discussed. pt conversant and appears to be making needs known.
--- NOTE | 2017-03-24 22:00 | NUR ---
Hygiene Pt refuses care. Offered oral care, to change brief, and reposition. Pt stated he was comfortable and did not want to be moved. Pt denies pain. Fentanyl drip continues at the same setting. Will continue to ask and check on pt as appropriate.
[2017-03-25] VITALS (8 sets, daily range): PULSE 76–96; RESP 12–20; O2SAT 93–99
[2017-03-25] MEDS: Pantoprazole 4 mg/mL 10 mL Inj IVPUSH SCH (08:40)
--- NOTE | 2017-03-25 09:04 | PCM.PNMED ---
Subjective Date of Service Mar 25, 2017 Subjective Patient is more awake today. He does feel this pain is reasonably controlled. He is currently on fentanyl at 35 mics. He is having some abdominal pain. There is a question of ongoing rectal bleeding as well. He denies any overt dyspnea. No chest pain or palpitations. Exam Vital Signs Vital Sign - Last Date Time Temp Pulse Resp B/P Pulse Ox O2 Delivery O2 Flow Rate FiO2 03/25/17 03:25 88 20 93 Nasal Cannula 2.00 03/24/17 12:06 36.6 96/58 03/19/17 07:11 25 Intake and Output 03/24/17 03/24/17 03/25/17 Cumulative From/Thru 15:00 23:00 07:00 03/17/17 18:57 - 03/25/17 06:25 Intake Total 840 ml 667 ml 98905 ml Output Total 350 ml 510 ml 740 ml 47221 ml Balance -350 ml 330 ml -73 ml 64186 ml Intake Oral 840 ml 300 ml 4500 ml IV Total 367 ml 25726 ml Output Urine Total 350 ml 450 ml 650 ml 9180 ml Stool Total 450 ml Gastric Drainage Total 200 ml Drainage Total 60 ml 90 ml 1133 ml Estimated Blood Loss 2 ml # Bowel Movements 1 5 Exam Alert and oriented -3, no distress. Fluent speech him a cachectic. Anicteric sclera. Lungs are clear with normal rate and effort Heart is regular without murmur gallop or rub Abdomen soft nontender, flat Extremities are free of edema. Skin is free of rash or lesions. IVs and Medications Medications Reviewed: Medications were reviewed in detail Lab and Diagnostics Result Diagram: 03/23/17 0424 03/23/17 0424 Microbiology MRSA negatvie Microbiology 03/18/17 Blood Fungal Culture, Received Pending 03/18/17 MRSA (PCR) - Final, Complete 03/18/17 Blood culture x 2 no growth to date X-Rays, CTs and MRIs Date of Service: 03/17/17 X-RAY CHEST ONE VIEW, PORTABLE IMPRESSION: 1. Small nodular opacity in the left apex measuring approximately 1 cm. The finding is nonspecific but new from the prior study. The differential includes confluent bony structures as well as neoplasm or atypical infection. Recommended a repeat PA and lateral study when clinically feasible. Dictated by: Mikhail Harris M.D. on 03/17/2017 at 20:08 Date of Service: 03/17/17 CT ANGIO CHEST PULMONARY EMBOLISM IMPRESSION: 1. Moderate amount of pneumoperitoneum within the visualized upper abdomen consistent with viscus perforation. This may be secondary to a perforated mass in the region of the gastric antrum. Recommend further evaluation with dedicated abdominal CT. 2. No evidence of pulmonary embolism. 3. Increase in size of multiple bilateral pulmonary nodules consistent with progression of metastatic disease. 4. Progression of osseous metastatic disease most prominent within the upper thoracic spine and associated mild endplate compression fractures of T2. Findings discussed with Dr. Reeder on 03/17/17 at 10 PM. Dictated by: Mikhail Harris M.D. on 03/17/2017 at 21:57 Date of Service: 03/17/17 CT ABDOMEN AND PELVIS WITHOUT CONTRAST IMPRESSION: 1. Moderate amount of free peritoneal air in the upper abdomen consistent with viscus perforation. The site of perforation is not definitively visualized. The most likely cause of perfusion is gastric or duodenal ulcer. 2. Retroperitoneal adenopathy consistent with metastasis. 3. The regular appearance of bladder compatible with neoplasm. 4. Bilateral ureter stents. There is a left percutaneous nephrostomy. Mild left pelviectasis. 5. Lytic metastasis involving lumbar spine and right hemipelvis. 6. Extensive atherosclerosis. There is intimal displacement and distal abdominal aorta suspicious for focal dissection. 7. A large amount of stool in colon. Dictated by: Jade Zurita M.D. on 03/18/2017 at 8:48 Date of Service: 03/18/17 X-RAY CHEST ONE VIEW, PORTABLE IMPRESSION: 1. Support lines and tubes as above. 2. Abnormal airspace opacity within the mid left lung and left upper lobe consistent with aspiration versus pneumonia. 3. Scattered nodules are better seen on CT, suspicious for metastatic disease. 4. Streaky opacity within the medial left lung base likely related to subsegmental atelectasis. Dictated by: Nathaniel Ibarra [facility] Interpreted: Jade Zurita MD on 03/18/2017 at 9:46 . Assessment & Plan # Perforated gastric ulcer status post exploratory laparotomy, washout, Branden patch application, and drain placement, acute, present on admission. Recurrent hematemesis on 03/23/17 suggests ongoing upper GI pathology, rebleed from gastric ulcer versus stress gastritis. -Patient is now comfort care on a fentanyl drip. We are titrating the strip for comfort. # Acute GI blood loss anemia, present on admission. This may be ongoing. We will follow clinically. On admit: Hb 9.0, decreased to 7.2; received 2 units packed red blood cells prior to OR Comfort care # Chronic cancer pain. We will titrate the fentanyl as needed for pain control.. - Continue fentanyl PCI # Acute hypoxemic respiratory failure, resolved. - Patient extubated 03/19, no signs of ongoing respiratory distress # Severe protein calorie malnutrition, chronic. Ongoing - On admit: BMI 17 # Left nephrostomy tube and ureteral stent placement, chronic. Presumed stable - No Pavon in place as patient has nephrostomy tube; he reports that he is due for change in collection bag - Comfort Care # Chronic kidney failure (CKD 3). Presumed stable. On admit: Cr 1.61; improving. -Comfort Care # Bilateral Sacral decubiti. Present on admission. Patient is resistant to offloading. - Continue wound care and decubitus precautions # Goals of care. The patient is expected to pass in the hospital. His fentanyl drip which is being titrated and managed by palliative care. GI Prophylaxis: Proton Pump Inhibitor VTE Prophylaxis: Sub-Q Heparin (Unfractionated), SCDs VTE Mechanical Devices: Intermittant Pneumatic CD Resuscitation Status: DNR/DNI:Do Not Resuscitate/Intubate Ian Mcintyre MD Mar 25, 2017 09:04
--- NOTE | 2017-03-25 09:27 | PCM.PALLBR ---
Palliative Care Recommendation Summary of palliative recommendations: 03/24/17--.Inadequate pain relief, but pt refusing more meds. Maintain fentanyl from at 35mcg/hr but asked RNs to keep low threshold for titrating up drip as pt does NOT look comfortable and admits to pain, but seems to be afraid of pain meds. Will try to help him get more comfortable with frequent visits and adjustments of meds, as he permits. Later in morning, pt willing to have more pain relief and fentanyl gtt bumped up to 45mcg/hr. Tomorrow: keep low threshold for titrating up drip to comfort. 03/23/17-- UGI bleed with increasing abd pain. Goals of care reviewed with his since pt cannot participate. Reviewed option of transfusions if nec, possible EGD and further treatments which would be aggressive., His requests comfort only. She feels this would only prolong his suffering and at this point requests no transfusion, no interventions except comfort meds. Meds changed to comfort and started on continuous fentanyl drip and other comfort orders. Hospice is notified he is likely to in hospital. DPOA/Advanced Directives/POLST: 1. Code = FULL CODE currently. 2. DPOAHC is his Cora. Family/emotional support: is good, and dtr are very involved. Spiritual support- I believe pt has significant psycho/spiritual distress around dying and is afraid of pain medications. Dr. Ferrer discussed with Healthcare Administrative Assistantamaris Geller and asked her for more visits to patient, if possible Patient Goals: 1. Patient wants to be told the truth about his/her illness, even if it is unpleasant. 2. His daughter feels that he is getting tired of this and has mentioned wanting it to end but difficult time talking about it. 3. Patient would choose quality of life over quantity of life, and defines quality as active and independent-His family does not think his QOL is good or that it is likely to improve in the near future. 4. Patient would request that comfort care take priority over cognitive/mental confusion. Disposition: expectant in hospital. Problems: End of Life Preferences DNR/DNI as of 03/2203.23.17--comfort care Goals of [facility] with assistance of hospice for sx management Disposition hope is for home Resuscitation Status Resuscitation Status: DNR/DNI:Do Not Resuscitate/Intubate POLST Updates/Changes Previous POLST?: No Artificially Admin Nutrition: No Artifical Nutrition by Tube POLST Discussed with: Patient POLST Review Outcome: New Form Completed Total time 35 minutes; >50% face to face with patient and/or family, providing counselling regarding plans and recommendations, and in care coordination with his/her medical teams. Palliative Brief Note Date of Service Mar 25, 2017 . . 03/25: Dr. Ferrer following up today (x cover for Dr. Lopez) to evauate efficacy of pain relief and pt's overall comfort. . 72-year-old with known metastatic bladder CA who was admitted with a perforated gastric ulcer and an upper GI bleed. This was surgically repaired but concern for large friable ulcer. Yesterday evening he started to have black stool and increased nausea. He has had emesis of broderick blood and has had 3 or 4 bloody stools yesterday. His HR increased and BP decreased as has his H/H in response to blood loss. He was having more abdominal pain yesterday and difficulties swallowing pain pills. He was converted to a fentanyl infusion. This morning, he is groaning, brow furrowed, shakes his head "no" to pain. Pall Care team aware that he is afraid of pain meds and tried not to take them at home prior to this admission, but his pain was increasing and he had to. Three days ago he told his he wanted to go home with hospice, that he would like to at home, but he has been having very difficult time with pain. Dr. Ferrer spoke with family today who say they were told by the doctors that he is still bleeding internally and moving him home would be risky, he might in transit. Subjective: Pt says he has pain behind his right shoulder at times that is sharp , but is quick to come and go. He also admits to "some" abdominal pain. He refuses PRN pain meds now, and has refused overnight when asked by RNs. Dtr Luis in room and spent night with him. She confirms that he seems to have pain but doesn't want more pain meds. Exam: General: looks like he is in pain, wincing, bracing himself in bed and holding very still. HEENT: does not make direct eye contact, looks straight at wall in front of him when questioned. Brow furrowed. Heart: S1,S2, tachy. Lungs: decreased bs, but clear Abd- soft, winces with pain to deep palpation epig and LLQ Last drawn 03/23: Hbg 7.8, Hct 26.2 Carline Ferrer MD Mar 25, 2017 09:27
--- NOTE | 2017-03-25 10:55 | NUR ---
Pain Pt c/o lower abd pain at 0915. Administered Morphine IVP. Rechecked and pt was still in pain. Called MD and we increased his Fentanyl drip to 45mcg/hour at 1045. At 1100 pt still in pain. Will recheck in 15 min and give another Morphine IVP if needed.
--- NOTE | 2017-03-25 16:40 | NUR ---
spiritual care: follow up conversational check in--family members in room, offered coping reflections and other updates. pt appears comfortable.
--- NOTE | 2017-03-25 17:49 | PROG NOTE ---
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 He was hospitalized with gastrointestinal bleeding, found to have gastric perforation which was repaired with laparotomy with patch closure last week. He is quite weak. He tells me that he is in no pain at this time. He has opted for palliative care for further management. OBJECTIVE: Vitals: T afebrile, P 90, R 14. HEENT: Conjunctivae pale. Mucous membranes slightly dry. Chest: Decreased at the bases. Cardiac exam: Regular rate and rhythm. Abdomen: Postsurgical changes. Bowel tones are active. Extremities: Extensive muscular wasting, 1+ distal pulses. LABORATORIES: None today. ASSESSMENT AND PLAN: 1. Recurrent progressive T4 N1 M1 transitional cell carcinoma of the urinary bladder: The patient has multiple pulmonary nodules consistent with metastatic disease. Given his debilitated state, and advancing disease, he and family have opted for palliative care, which is completely appropriate. 2. Gastric perforation: Day eight status post laparotomy with patch closure of gastric perforation.
[2017-03-26] VITALS (10 sets, daily range): PULSE 84–101; RESP 12–20; O2SAT 84–93
--- NOTE | 2017-03-26 04:55 | NUR ---
Pain / Itching Pt reported pain at approx. 5/10 at HS and per family and assessment, pt repeatedly scratching wrists d/t itching. Order obtained for IV Benadryl, 25mg Benadryl and 4mg Morphine administered at HS with relief upon reassessment. Pt denied any needs throughout shift, denied pain throughout rest of shift after HS. Able to rest. VSS.
--- NOTE | 2017-03-26 08:45 | PCM.PNMED ---
Subjective Date of Service Mar 26, 2017 Subjective He is comfortable. His twinges of pain have improved with oxybutynin. This may represent some bladder spasm. He slept well. His adult pain is under reasonable control. No nausea. No shortness of breath. Exam Vital Signs Vital Sign - Last Date Time Temp Pulse Resp B/P Pulse Ox O2 Delivery O2 Flow Rate FiO2 03/26/17 06:10 101 20 03/26/17 02:05 90 Nasal Cannula 4.00 03/24/17 12:06 36.6 96/58 Intake and Output 03/25/17 03/25/17 03/26/17 Cumulative From/Thru 15:00 23:00 07:00 03/17/17 18:57 - 03/26/17 06:10 Intake Total 295 ml 425 ml 86673 ml Output Total 1110 ml 1050 ml 48524 ml Balance -815 ml -625 ml 8696 ml Intake Oral 100 ml 200 ml 4800 ml IV Total 195 ml 225 ml 26247 ml Output Urine Total 950 ml 900 ml 17477 ml Stool Total 450 ml Gastric Drainage Total 200 ml Drainage Total 160 ml 150 ml 1443 ml Estimated Blood Loss 2 ml # Bowel Movements 1 0 6 Exam Alert and oriented -3, no distress. Fluent speech. Cachectic. Anicteric sclera. Lungs are clear with normal rate and effort Heart is regular without murmur gallop or rub Abdomen soft nontender, flat. There is some tenderness in left upper quadrant with deep palpation. Extremities are free of edema. Skin is free of rash or lesions. IVs and Medications Medications Reviewed: Medications were reviewed in detail Lab and Diagnostics Result Diagram: 03/23/17 0424 03/23/17 0424 Microbiology MRSA negatvie Microbiology 03/18/17 Blood Fungal Culture, Received Pending 03/18/17 MRSA (PCR) - Final, Complete 03/18/17 Blood culture x 2 no growth to date X-Rays, CTs and MRIs Date of Service: 03/17/17 X-RAY CHEST ONE VIEW, PORTABLE IMPRESSION: 1. Small nodular opacity in the left apex measuring approximately 1 cm. The finding is nonspecific but new from the prior study. The differential includes confluent bony structures as well as neoplasm or atypical infection. Recommended a repeat PA and lateral study when clinically feasible. Dictated by: Mikhail Harris M.D. on 03/17/2017 at 20:08 Date of Service: 03/17/17 CT ANGIO CHEST PULMONARY EMBOLISM IMPRESSION: 1. Moderate amount of pneumoperitoneum within the visualized upper abdomen consistent with viscus perforation. This may be secondary to a perforated mass in the region of the gastric antrum. Recommend further evaluation with dedicated abdominal CT. 2. No evidence of pulmonary embolism. 3. Increase in size of multiple bilateral pulmonary nodules consistent with progression of metastatic disease. 4. Progression of osseous metastatic disease most prominent within the upper thoracic spine and associated mild endplate compression fractures of T2. Findings discussed with Dr. Reeder on 03/17/17 at 10 PM. Dictated by: Mikhail Harris M.D. on 03/17/2017 at 21:57 Date of Service: 03/17/17 CT ABDOMEN AND PELVIS WITHOUT CONTRAST IMPRESSION: 1. Moderate amount of free peritoneal air in the upper abdomen consistent with viscus perforation. The site of perforation is not definitively visualized. The most likely cause of perfusion is gastric or duodenal ulcer. 2. Retroperitoneal adenopathy consistent with metastasis. 3. The regular appearance of bladder compatible with neoplasm. 4. Bilateral ureter stents. There is a left percutaneous nephrostomy. Mild left pelviectasis. 5. Lytic metastasis involving lumbar spine and right hemipelvis. 6. Extensive atherosclerosis. There is intimal displacement and distal abdominal aorta suspicious for focal dissection. 7. A large amount of stool in colon. Dictated by: Jade Zurita M.D. on 03/18/2017 at 8:48 Date of Service: 03/18/17 X-RAY CHEST ONE VIEW, PORTABLE IMPRESSION: 1. Support lines and tubes as above. 2. Abnormal airspace opacity within the mid left lung and left upper lobe consistent with aspiration versus pneumonia. 3. Scattered nodules are better seen on CT, suspicious for metastatic disease. 4. Streaky opacity within the medial left lung base likely related to subsegmental atelectasis. Dictated by: Nathaniel Ibarra [facility] Interpreted: Jade Zurita MD on 03/18/2017 at 9:46 . Assessment & Plan # Perforated gastric ulcer status post exploratory laparotomy, washout, Branden patch application, and drain placement, acute, present on admission. Recurrent hematemesis on 03/23/17 suggests ongoing upper GI pathology, rebleed from gastric ulcer versus stress gastritis. -Patient is now comfort care on a fentanyl drip. We are titrating the strip for comfort. We will continue to discuss comfort planning with palliative care. # Acute GI blood loss anemia, present on admission. This may be ongoing. We will follow clinically. On admit: Hb 9.0, decreased to 7.2; received 2 units packed red blood cells prior to OR Comfort care, no change in medications. # Chronic cancer pain. We will titrate the fentanyl as needed for pain control.. - Continue fentanyl PCI # Acute hypoxemic respiratory failure, resolved. - Patient extubated 03/19, no signs of ongoing respiratory distress # Severe protein calorie malnutrition, chronic. Ongoing - On admit: BMI 17 # Left nephrostomy tube and ureteral stent placement, chronic. Presumed stable - No Pavon in place as patient has nephrostomy tube; he reports that he is due for change in collection bag - Comfort Care # Chronic kidney failure (CKD 3). Presumed stable. On admit: Cr 1.61; improving. -Comfort Care # Bilateral Sacral decubiti. Present on admission. Patient is resistant to offloading. - Continue wound care and decubitus precautions # Goals of care. The patient is expected to pass in the hospital. His fentanyl drip which is being titrated and managed by palliative care. GI Prophylaxis: Proton Pump Inhibitor VTE Prophylaxis: Sub-Q Heparin (Unfractionated), SCDs VTE Mechanical Devices: Intermittant Pneumatic CD Resuscitation Status: DNR/DNI:Do Not Resuscitate/Intubate Ian Mcintyre MD Mar 26, 2017 08:45
[2017-03-26] MEDS: Pantoprazole 4 mg/mL 10 mL Inj IVPUSH SCH (09:24)
--- NOTE | 2017-03-26 10:30 | NUR ---
Social Work: Continued Discharge Planning D: Pt discussed with palliative care team and hospitalist. Pt is now stable and not imminently dying. Pt will require a discharge plan in place as pt's clinical presentation has changed. Initially, pt stated he wished to go home with hospice. Barriers to this plan include a long wait time (multiple days) for hospice intake and pt's geographic location (Wednesday). Pt has now expressed to palliative care team that he does not want to be a burden on his family and would like to explore possible SNF placement, ideally on Wednesday. EMR reviewed; pt is on IV Morphine and Fentenyl. HOME HEALTH SCHEDULER spoke with Michelle TSAI at [facility] who states that they can manage IV pain medications however it would take 4-5 days to get the medications at the facility and they do not have beds available for almost a week. HOME HEALTH SCHEDULER requested that local SNFs who can manage IV medications ([facility] and [facility]) review the pt for possible admission. A: Pt who is on comfort care. P: Evolving; HOME HEALTH SCHEDULER will update note as more information is received and will discuss discharge plan with the pt and family today. BONY Ayala Addendum: 03/26/17 at 1532 by FERNANDO LOTT HOME HEALTH SCHEDULER spoke with Elizabet Burkett at [facility] who states they can accept the pt and skilled him for RN needs and management of IV pain medications. They do not have a private room available for the pt. t/c to Brenda with [facility] who states that they can open with the pt and family at their home on Sunday April 02, 2017. They are following. HOME HEALTH SCHEDULER met with the pt's family at bedside to discuss discharge options. They area agreeable to snf for a short stay until hospice can open with the pt at their home on Wednesday04/02/17. They do not want the pt to discharge without a private room and are requesting HOME HEALTH SCHEDULER search facilities in [place] that can manage IV Pain medications and has a private room. Case Management is searching. [facility] is reviewing the pt at this time. Addendum: 03/26/17 at 1644 by FERNANDO ROJAS [facility] do not have a private room available for the pt at this time. HOME HEALTH SCHEDULER spoke with MD about pt's care and discharge plan. At this time, MD will keep pt overnight until a discharge plan can be finalized that satisfies the pt and family's end of life requests. HOME HEALTH SCHEDULER will follow up with Sindy Grimes and [facility] tomorrow about status of private room.
[2017-03-26] MEDS ORDERED: Morphine 20 mg/mL Oral Syringe SL/PO PRN (12:55)
[2017-03-26] MEDS ORDERED: MORP100S5 SL/PO (15:20)
--- NOTE | 2017-03-26 15:41 | NUR ---
spiritual care: follow up listening support as family processing and planning through changes of plans. pt able to participate in discussion including his enjoyment of eating garcia and also that he fears being a burden on family. Family investigating snf options and transport to their home. mixed emotions and weariness expressed.
--- NOTE | 2017-03-26 15:56 | PCM.PALLBR ---
Palliative Care Recommendation Summary of palliative recommendations: 03/26/17 -Pain relief is tolerable as per pt. He denies pain--adamantly but at times grimaces. He is on his fentanyl IV and only occ BTP MS-changed to liquid/oral Goal is for placement with his IV fentanyl for control or if need be will need to change to oral and family needs reassurance that this will be adequate. PO as tolerated code status DNR/DNI, comfort- family supported and issues reviewed 03/24/17--.Inadequate pain relief, but pt refusing more meds. Maintain fentanyl from at 35mcg/hr but asked RNs to keep low threshold for titrating up drip as pt does NOT look comfortable and admits to pain, but seems to be afraid of pain meds. Will try to help him get more comfortable with frequent visits and adjustments of meds, as he permits. Later in morning, pt willing to have more pain relief and fentanyl gtt bumped up to 45mcg/hr. Tomorrow: keep low threshold for titrating up drip to comfort. 03/23/17-- UGI bleed with increasing abd pain. Goals of care reviewed with his since pt cannot participate. Reviewed option of transfusions if nec, possible EGD and further treatments which would be aggressive., His requests comfort only. She feels this would only prolong his suffering and at this point requests no transfusion, no interventions except comfort meds. Meds changed to comfort and started on continuous fentanyl drip and other comfort orders. Hospice is notified he is likely to in hospital. DPOA/Advanced Directives/POLST: 1. Code = FULL CODE currently. 2. DPOAHC is his Cora. Family/emotional support: is good, and dtr are very involved. Spiritual support- I believe pt has significant psycho/spiritual distress around dying and is afraid of pain medications. Dr. Ferrer discussed with Oil Distributor Tenderamaris Geller and asked her for more visits to patient, if possible Patient Goals: 1. Patient wants to be told the truth about his/her illness, even if it is unpleasant. 2. His daughter feels that he is getting tired of this and has mentioned wanting it to end but difficult time talking about it. 3. Patient would choose quality of life over quantity of life, and defines quality as active and independent-His family does not think his QOL is good or that it is likely to improve in the near future. 4. Patient would request that comfort care take priority over cognitive/mental confusion. Disposition: goal is for discharge but where is yet to be determined Problems: End of Life Preferences DNR/DNI as of 03/22 4.25.17--comfort care Goals of Nursing Home with assistance of hospice for sx management Disposition hope is for home Resuscitation Status Resuscitation Status: DNR/DNI:Do Not Resuscitate/Intubate POLST Updates/Changes Previous POLST?: No Artificially Admin Nutrition: No Artifical Nutrition by Tube POLST Discussed with: Patient POLST Review Outcome: New Form Completed Total time 35 minutes; >50% face to face with patient and/or family, providing counselling regarding plans and recommendations, and in care coordination with his/her medical teams. I also spent an additional [ ] minutes counseling for advanced care planning with the patient/the patients family/the surrogate decision maker. Palliative Brief Note Date of Service Mar 26, 2017 . 72 yo with hx metastatic bladder CA with GI bleed and recent gastric ulcer perforation that had surgical repair. He had transient deteriorating course with GI bleed but this seemed to stabilize. He is in bed- was in chair briefly, feeding himself apple sauce. He is on fentanyl drip at 45 mcg/hr with only occ MS for BTP He originally wanted to go home to but he is now reluctant due to sense of burden to his family and is willing to consider SNF. He is interested in getting home but only if adequate support. O: OX2-place and person--not necessarily exact date. lungs- moist cough COR HR 80 ABD-tender fairly diffusely neuro-decisional and tearful talking about his family Kimberley Lopez MD Mar 26, 2017 15:56
--- NOTE | 2017-03-26 18:48 | NUR ---
Pain/Activity Patient a/o x 3, forgetful at times. Fentanyl gtt @ 45 mcg/hr and Morphine IVP given for breakthrough pain. Nephrostomy putting out yellow urine with odor. LIZY drain putting serous drainage. Patient incont urine x 1, bed bath given after premedicated with pain meds. Patient on RA sat 86-92%, RR 16-24 min HR 80-100's. Family at bedside assisting with care.
[2017-03-26] MEDS ORDERED: Sodium Chloride LOK Flush 10 mL Syringe IRRIGATION PRN (22:10)
[2017-03-27] VITALS (7 sets, daily range): BP systolic 113; BP diastolic 60; PULSE 98–100; RESP 12–20; O2SAT 84–89
--- NOTE | 2017-03-27 06:33 | NUR ---
Pain Pt c/o 10 pain that was intermittent spasms in the LLQ. Pt was on 45mcg/hr Fentanyl and was given 4mg morphine x2 for the breakthrough pain while waiting for the oxybutynin to work. Pt was able to sleep on and off for the rest of the shift. When asked about pain after the second 4mg of morphine was given at 0000 pt said that there was no pain and there were no s/s of pt being in pain.
[2017-03-27] MEDS: Pantoprazole 4 mg/mL 10 mL Inj IVPUSH SCH (08:42)
--- NOTE | 2017-03-27 09:00 | NUR ---
ANTONIO signed BONY Tavarez
[2017-03-27] MEDS ORDERED: fentaNYL-PF 50 mCg/mL 2 mL Inj IVPUSH PRN (10:20)
--- NOTE | 2017-03-27 10:25 | PCM.PNMED ---
Subjective Date of Service Mar 27, 2017 Subjective Patient's had some more abdominal pain throughout the night. Described as twinges in the lower abdomen. Requiring intermittent boluses of morphine. Family is concerned morphine is causing pruritus. He is using some Benadryl and lotion. No chest pain or dyspnea. No confusion. Exam Vital Signs Vital Sign - Last Date Time Temp Pulse Resp B/P Pulse Ox O2 Delivery O2 Flow Rate FiO2 03/27/17 08:36 99 16 113/60 88 Room Air 03/26/17 02:05 4.00 03/24/17 12:06 36.6 Intake and Output 03/26/17 03/26/17 03/27/17 Cumulative From/Thru 15:00 23:00 07:00 03/17/17 18:57 - 03/27/17 05:22 Intake Total 604 ml 275 ml 02097 ml Output Total 1005 ml 770 ml 57814 ml Balance -401 ml -495 ml 7800 ml Intake Oral 440 ml 100 ml 5340 ml IV Total 164 ml 175 ml 77377 ml Output Urine Total 950 ml 700 ml 41709 ml Stool Total 450 ml Gastric Drainage Total 200 ml Drainage Total 55 ml 70 ml 1568 ml Estimated Blood Loss 2 ml # Voids 1 1 # Bowel Movements 6 Exam Alert and oriented -3, no distress. Fluent speech, flat affect Anicteric sclera. Lungs are clear with normal rate and effort Heart is regular without murmur gallop or rub Abdomen soft tender with palpation but no rebound. Flat. Extremities are free of edema. Skin is free of rash or lesions. IVs and Medications Medications Reviewed: Medications were reviewed in detail Lab and Diagnostics Result Diagram: 03/23/17 0424 03/23/17 0424 Microbiology MRSA negatvie Microbiology 03/18/17 Blood Fungal Culture, Received Pending 03/18/17 MRSA (PCR) - Final, Complete 03/18/17 Blood culture x 2 no growth to date X-Rays, CTs and MRIs Date of Service: 03/17/17 X-RAY CHEST ONE VIEW, PORTABLE IMPRESSION: 1. Small nodular opacity in the left apex measuring approximately 1 cm. The finding is nonspecific but new from the prior study. The differential includes confluent bony structures as well as neoplasm or atypical infection. Recommended a repeat PA and lateral study when clinically feasible. Dictated by: Mikhail Harris M.D. on 03/17/2017 at 20:08 Date of Service: 03/17/17 CT ANGIO CHEST PULMONARY EMBOLISM IMPRESSION: 1. Moderate amount of pneumoperitoneum within the visualized upper abdomen consistent with viscus perforation. This may be secondary to a perforated mass in the region of the gastric antrum. Recommend further evaluation with dedicated abdominal CT. 2. No evidence of pulmonary embolism. 3. Increase in size of multiple bilateral pulmonary nodules consistent with progression of metastatic disease. 4. Progression of osseous metastatic disease most prominent within the upper thoracic spine and associated mild endplate compression fractures of T2. Findings discussed with Dr. Reeder on 03/17/17 at 10 PM. Dictated by: Mikhail Harris M.D. on 03/17/2017 at 21:57 Date of Service: 03/17/17 CT ABDOMEN AND PELVIS WITHOUT CONTRAST IMPRESSION: 1. Moderate amount of free peritoneal air in the upper abdomen consistent with viscus perforation. The site of perforation is not definitively visualized. The most likely cause of perfusion is gastric or duodenal ulcer. 2. Retroperitoneal adenopathy consistent with metastasis. 3. The regular appearance of bladder compatible with neoplasm. 4. Bilateral ureter stents. There is a left percutaneous nephrostomy. Mild left pelviectasis. 5. Lytic metastasis involving lumbar spine and right hemipelvis. 6. Extensive atherosclerosis. There is intimal displacement and distal abdominal aorta suspicious for focal dissection. 7. A large amount of stool in colon. Dictated by: Jade Zurita M.D. on 03/18/2017 at 8:48 Date of Service: 03/18/17 X-RAY CHEST ONE VIEW, PORTABLE IMPRESSION: 1. Support lines and tubes as above. 2. Abnormal airspace opacity within the mid left lung and left upper lobe consistent with aspiration versus pneumonia. 3. Scattered nodules are better seen on CT, suspicious for metastatic disease. 4. Streaky opacity within the medial left lung base likely related to subsegmental atelectasis. Dictated by: Nathaniel Ibarra [facility] Interpreted: Jade Zurita MD on 03/18/2017 at 9:46 . Assessment & Plan # Perforated gastric ulcer status post exploratory laparotomy, washout, Branden patch application, and drain placement, acute, present on admission. Recurrent hematemesis on 03/23/17 suggests ongoing upper GI pathology, rebleed from gastric ulcer versus stress gastritis. -We will DC morphine boluses and use fentanyl at 25 mics every 2 hours. We will increase the fentanyl drip from 45-55 mics per hour. # Acute GI blood loss anemia, present on admission. This may be ongoing. We will follow clinically. On admit: Hb 9.0, decreased to 7.2; received 2 units packed red blood cells prior to OR Comfort care, no change in medications. # Chronic cancer pain. We will titrate the fentanyl as needed for pain control.. - Continue fentanyl PCI # Acute hypoxemic respiratory failure, resolved. - Patient extubated 03/19, no signs of ongoing respiratory distress # Severe protein calorie malnutrition, chronic. Ongoing - On admit: BMI 17 # Left nephrostomy tube and ureteral stent placement, chronic. Presumed stable - No Pavon in place as patient has nephrostomy tube; he reports that he is due for change in collection bag - Comfort Care # Chronic kidney failure (CKD 3). Presumed stable. On admit: Cr 1.61; improving. -Comfort Care # Bilateral Sacral decubiti. Present on admission. Patient is resistant to offloading. - Continue wound care and decubitus precautions # Goals of care. Continue to manage his pain control with changes in his fentanyl drip. In addition we are looking at hospice initiation on Wednesday which is her soonest available. We will also explore and various possible prison transitions that can accommodate a fentanyl drip. GI Prophylaxis: Proton Pump Inhibitor VTE Prophylaxis: Sub-Q Heparin (Unfractionated), SCDs VTE Mechanical Devices: Intermittant Pneumatic CD Resuscitation Status: DNR/DNI:Do Not Resuscitate/Intubate Ian Mcintyre MD Mar 27, 2017 10:25
[2017-03-27] MEDS: fentaNYL 2,500 mCg/250 mL 2,500 MCG in IV Premix 1 EACH IV SCH (10:43)
--- NOTE | 2017-03-27 11:13 | PROG NOTE ---
[address] [address] PROGRESS NOTE PATIENT: MARTIN MARIN : 1945 MR#: [id number] ADMIT: 03/17/2017 JOB ID: [id number] DATE: 03/27/2017 SUBJECTIVE: Discussed patient with Dr. Mcintyre from the hospitalist service. The patient is on comfort care status. General Surgery will not see him actively but will be available if there are any questions. Please contact the general surgeon retail client solutions analyst, if our input is requested.
--- NOTE | 2017-03-27 11:26 | NUR ---
Social Work: Readiness for d/c Data: Pt is on day 10 of hospitalization. EMR reviewed, pt discussed in rounds. MD states pt likely ready for d/c tomorrow as they are changing some medications and would like to keep him at least one more night. HANDLE SANDER OPERATOR will continue to follow. Assessment: Pt who is on comfort care. Plan: Pt will d/c to SNF when medically stable, MD states likely tomorrow. [facility] for the pt at this time. HANDLE SANDER OPERATOR will call again in the AM of 03/28/17 regarding private room availability. Hospice will open at pt's home on 04/02/2017. HANDLE SANDER OPERATOR will continue to follow. BONY Tavarez
--- NOTE | 2017-03-27 18:11 | NUR ---
Pain/Comfort/Skin Patient a/o x 2-3, c/o pain with activity and bladder spasms, Fentanyl gtt increased to 55 mcg/hr per MD orders. Patient given Fentanyl bolus x 3 and Fentanyl gtt increased to 66 mcg/hr per orders. Nephrostomy irrigated x 1, putting out vera uop with odor. Patient given bed bath this afternoon, coccyx red with dime size purple spot. Patient declined mepilex or changing positions this shift. HR 90-100's RR 16-18 min, sat 86-89% on RA. Family at bedside throughout the shift. Support and comfort offered.
--- NOTE | 2017-03-27 22:26 | NUR ---
Transfer of care Pt transferred to room 1007, Report given to Kary Grissom RN, all belongings transferred with patient.
--- NOTE | 2017-03-27 23:48 | NUR ---
TRANSFER; pt transfered from [facility] at [place]. 2215 via bed. C/o pain with transfering from [facility] bed to [id number] bed in room- then relaxed. Fentanyl cont. at 66mcg/hr. Family at the bedside.
[2017-03-28 02:00] VITALS: RESP 20
--- NOTE | 2017-03-28 03:44 | NUR ---
PAIN; sleeping off and on. out in hallway walking around- stated couldnt sleep. Stated is very comfortable. Expressing feelings regarding pt's condition. Theraputic listening done.
[2017-03-28 04:00] VITALS: RESP 22
[2017-03-28 05:41] VITALS: RESP 20
--- NOTE | 2017-03-28 06:17 | NUR ---
PSYCH; "I don't need this anymore. I'm going home today". (pointing to iv line) Confused.- Pt agreed to wait until he sees doctor today. stated that he isn't going anywhere today and that he has been talking in his sleep all night.
--- NOTE | 2017-03-28 07:14 | PCM.PNMED ---
Subjective Date of Service Mar 28, 2017 Subjective Patient seen and examined. and grandson at bedside. Patient was awake eating his breakfast. Denies any complaints and reports good pain control with current pain medications. no fever or chills. Exam Vital Signs Vital Sign - Last Date Time Temp Pulse Resp B/P Pulse Ox O2 Delivery O2 Flow Rate FiO2 03/28/17 05:41 20 03/27/17 23:42 100 Room Air 03/27/17 16:00 86 03/27/17 08:36 113/60 03/26/17 02:05 4.00 03/24/17 12:06 36.6 Intake and Output 03/27/17 03/27/17 03/28/17 Cumulative From/Thru 15:00 23:00 07:00 03/17/17 18:57 - 03/28/17 06:23 Intake Total 268 ml 340 ml 63839 ml Output Total 410 ml 1205 ml 83225 ml Balance -142 ml -865 ml 6793 ml Intake Oral 60 ml 300 ml 5700 ml IV Total 208 ml 40 ml 97027 ml Output Urine Total 350 ml 1100 ml 29225 ml Stool Total 450 ml Gastric Drainage Total 200 ml Drainage Total 60 ml 105 ml 1733 ml Estimated Blood Loss 2 ml # Voids 1 2 # Bowel Movements 6 Exam General: Alert, Oriented X3, Cooperative, No acute Distress Eyes: PERRLA, Scleral Anicteric Mouth: Mouth Normal, Mucous Membranes dry Neck: Supple, no Thyromegaly, trachea central. Chest & Lungs: Clear to auscultation & percussion, No adventitious breath sounds, no crackles, no wheeze Cardiovascular: Normal S1, Normal S2, No Murmurs/Rubs/Gallops, Regular Rate/ Rhythm, (No JVD, no peripheral edema) Pulses: Radial (present and equal), Dorsalis Pedi (present and equal) Abdomen: Soft, Non-tender, Non-distended, Normoactive bowel tones. Musculoskeletal: Unremarkable. Normal range of motion, no swollen or erythematous joints Extremities: No edema, no cyanosis, no clubbing. Skin: No rashes. Warm and dry, no erythematous area Nephrostomy tube draining Neurological: Grossly neurologically intact, has generalized weakness, Normal Speech, Sensation Intact Lymphatic: Lymph nodes Cervical and Axillary not palpable. IVs and Medications Medications Reviewed: Medications were reviewed in detail Lab and Diagnostics Microbiology 03/18/17 Blood Fungal Culture - Preliminary, Resulted No Fungus isolated at one week 03/18/17 MRSA (PCR) - Final, Complete Result Diagram: 03/23/17 0424 03/23/17 0424 Microbiology MRSA negatvie Microbiology 03/18/17 Blood Fungal Culture, Received Pending 03/18/17 MRSA (PCR) - Final, Complete 03/18/17 Blood culture x 2 no growth to date X-Rays, CTs and MRIs Date of Service: 03/17/17 X-RAY CHEST ONE VIEW, PORTABLE IMPRESSION: 1. Small nodular opacity in the left apex measuring approximately 1 cm. The finding is nonspecific but new from the prior study. The differential includes confluent bony structures as well as neoplasm or atypical infection. Recommended a repeat PA and lateral study when clinically feasible. Dictated by: Mikhail Harris M.D. on 03/17/2017 at 20:08 Date of Service: 03/17/17 CT ANGIO CHEST PULMONARY EMBOLISM IMPRESSION: 1. Moderate amount of pneumoperitoneum within the visualized upper abdomen consistent with viscus perforation. This may be secondary to a perforated mass in the region of the gastric antrum. Recommend further evaluation with dedicated abdominal CT. 2. No evidence of pulmonary embolism. 3. Increase in size of multiple bilateral pulmonary nodules consistent with progression of metastatic disease. 4. Progression of osseous metastatic disease most prominent within the upper thoracic spine and associated mild endplate compression fractures of T2. Findings discussed with Dr. Reeder on 03/17/17 at 10 PM. Dictated by: Mikhail Harris M.D. on 03/17/2017 at 21:57 Date of Service: 03/17/17 CT ABDOMEN AND PELVIS WITHOUT CONTRAST IMPRESSION: 1. Moderate amount of free peritoneal air in the upper abdomen consistent with viscus perforation. The site of perforation is not definitively visualized. The most likely cause of perfusion is gastric or duodenal ulcer. 2. Retroperitoneal adenopathy consistent with metastasis. 3. The regular appearance of bladder compatible with neoplasm. 4. Bilateral ureter stents. There is a left percutaneous nephrostomy. Mild left pelviectasis. 5. Lytic metastasis involving lumbar spine and right hemipelvis. 6. Extensive atherosclerosis. There is intimal displacement and distal abdominal aorta suspicious for focal dissection. 7. A large amount of stool in colon. Dictated by: Jade Zurita M.D. on 03/18/2017 at 8:48 Date of Service: 03/18/17 X-RAY CHEST ONE VIEW, PORTABLE IMPRESSION: 1. Support lines and tubes as above. 2. Abnormal airspace opacity within the mid left lung and left upper lobe consistent with aspiration versus pneumonia. 3. Scattered nodules are better seen on CT, suspicious for metastatic disease. 4. Streaky opacity within the medial left lung base likely related to subsegmental atelectasis. Dictated by: Nathaniel Ibarra Shey Interpreted: Jade Zurita MD on 03/18/2017 at 9:46 . Assessment & Plan 1. Perforated gastric ulcer status post exploratory laparotomy, washout, Branden patch application, and drain placement, acute, present on admission. Recurrent hematemesis on 03/23/17 suggests ongoing upper GI pathology, rebleed from gastric ulcer versus stress gastritis. - Currently on Comfort Care with Palliative on board for pain management - Pain regimen currently with Fentanyl drip with Fentanyl Iv pushes for breakthrough pain 2 Acute GI blood loss anemia, present on admission. This may be ongoing. - currently on plans for any intervention or serial H/H monitoring 3 Chronic cancer pain. - continue pain regimen as mentioned above 4 Acute hypoxemic respiratory failure, resolved. - Patient extubated 03/19, no signs of ongoing respiratory distress - currently Do not intubate status 5 Severe protein calorie malnutrition, chronic. Ongoing - BMI 17 on admission - currently tolerating some PO intake 6 Left nephrostomy tube and ureteral stent placement, chronic. Presumed stable - No Pavon in place as patient has nephrostomy tube; he reports that he is due for change in collection bag - Comfort Care 7 Chronic kidney failure (CKD 3). Presumed stable. On admit: Cr 1.61; improving. -Comfort Care 8 Bilateral Sacral decubiti. Present on admission. Patient is resistant to offloading. - Continue wound care and decubitus precautions Disposition: Patient ready for discharge and [facility] able to take patient. However family refuses discharge and appealing. Family wish for a private room at the facility but no rooms available but not private GI Prophylaxis: Proton Pump Inhibitor VTE Prophylaxis: Sub-Q Heparin (Unfractionated), SCDs VTE Mechanical Devices: Intermittant Pneumatic CD Resuscitation Status: DNR/DNI:Do Not Resuscitate/Intubate Antione Green MD Mar 28, 2017 07:14
[2017-03-28] MEDS: Pantoprazole 4 mg/mL 10 mL Inj IVPUSH SCH (09:25)
--- NOTE | 2017-03-28 10:51 | NUR ---
Social Work: Readiness for D/C Data: Pt is on day 11 of hospitalization. EMR reviewed, pt discussed in rounds. Pt's medication adjustments are complete, pt continues on comfort care. Pt will have skilled RN needs and IV medications at discharge. MAGO called Akua, admissions at [facility], regarding status of private room availability. Akua may have a private room available pending another pt's discharge. Akua to update MAGO as the information is known. MAGO called Pat Mondragon, admissions at [facility] ([phone]), who requested updated clinicals be faxed to [phone] for review. Pat reports that she has a private room available with a shared bathroom. Formal acceptance of pt is pending. Hospice is following pt, Hospice to open at pt's home on 04/02/17. [facility] will continue to follow. Assessment: Pt who is on comfort care. Plan: Pt will d/c to SNF when medically stable. [facility] is reviewing discharges and room availability, Akua to update [facility] of availability. [facility] has a private room available for pt with a shared bathroom. Updated clinicals were faxed to [facility], formal acceptance pending. Hospice will open at pt's home in Wednesday on 04/02/2017. [facility] will continue to follow. BONY Dvais
--- NOTE | 2017-03-28 12:25 | PCM.DIMED ---
Discharge Instructions Date of Service Mar 28, 2017 Dates of Hospitalization Mar 17, 2017 at 22:54 Discharge Diagnosis Discharge Diagnosis Primary diagnosis Perforated gastric ulcer status post exploratory laparotomy, washout, Branden patch application, and drain placement, acute, present on admission. Recurrent hematemesis with Acute GI blood loss anemia Chronic cancer pain. on Comfort Care Acute hypoxemic respiratory failure, resolved. Secondary diagnosis Severe protein calorie malnutrition, chronic Left nephrostomy tube and ureteral stent placement Chronic kidney failure (CKD 3). Bilateral Sacral decubitus. Diet Other (Comfort Care) Activity Other (Comfort Care) Patient Instructions Follow-up plan Patient will be under the Care of Doctor at [facility] Antione Green MD Mar 28, 2017 12:25
[2017-03-28] MEDS ORDERED: PANT40VI2 IVPUSH (12:28)
[2017-03-28] MEDS ORDERED: FENT50VI8 IVPUSH (12:28)
[2017-03-28] MEDS ORDERED: DIPH50VI14 IVPUSH (12:28)
[2017-03-28] MEDS ORDERED: OXYB5TAB10 PO (12:28)
[2017-03-28] MEDS ORDERED: HALO5AMP3 IVPUSH (12:28)
--- NOTE | 2017-03-28 12:32 | PCM.DC.MED ---
Discharge Summary Date of Service Mar 28, 2017 Dates of Hospitalization Date of Hospital Admission Mar 17, 2017 at 22:54 Date of Discharge: Mar 28, 2017 Providers: Admitting Physician: Kalyani Armenta DO Primary Care Physician: Ben Ferrari MD Attending Physician: Kalyani Armenta DO Diagnosis at Time of Discharge Diagnosis at Time of Discharge Primary diagnosis Perforated gastric ulcer status post exploratory laparotomy, washout, Branden patch application, and drain placement, acute, present on admission. Recurrent hematemesis with Acute GI blood loss anemia Chronic cancer pain. on Comfort Care Acute hypoxemic respiratory failure, resolved. Secondary diagnosis Severe protein calorie malnutrition, chronic Left nephrostomy tube and ureteral stent placement Chronic kidney failure (CKD 3). Bilateral Sacral decubitus. Consultations Oncology: Dr Atkins Surgery: Dr Saul Mcintyre Procedures XRay, CTs & MRIs Date of Service: 03/17/17 X-RAY CHEST ONE VIEW, PORTABLE IMPRESSION: 1. Small nodular opacity in the left apex measuring approximately 1 cm. The finding is nonspecific but new from the prior study. The differential includes confluent bony structures as well as neoplasm or atypical infection. Recommended a repeat PA and lateral study when clinically feasible. Dictated by: Mikhail Harris M.D. on 03/17/2017 at 20:08 Date of Service: 03/17/17 CT ANGIO CHEST PULMONARY EMBOLISM IMPRESSION: 1. Moderate amount of pneumoperitoneum within the visualized upper abdomen consistent with viscus perforation. This may be secondary to a perforated mass in the region of the gastric antrum. Recommend further evaluation with dedicated abdominal CT. 2. No evidence of pulmonary embolism. 3. Increase in size of multiple bilateral pulmonary nodules consistent with progression of metastatic disease. 4. Progression of osseous metastatic disease most prominent within the upper thoracic spine and associated mild endplate compression fractures of T2. Findings discussed with Dr. Reeder on 03/17/17 at 10 PM. Dictated by: Mikhail Harris M.D. on 03/17/2017 at 21:57 Date of Service: 03/17/17 CT ABDOMEN AND PELVIS WITHOUT CONTRAST IMPRESSION: 1. Moderate amount of free peritoneal air in the upper abdomen consistent with viscus perforation. The site of perforation is not definitively visualized. The most likely cause of perfusion is gastric or duodenal ulcer. 2. Retroperitoneal adenopathy consistent with metastasis. 3. The regular appearance of bladder compatible with neoplasm. 4. Bilateral ureter stents. There is a left percutaneous nephrostomy. Mild left pelviectasis. 5. Lytic metastasis involving lumbar spine and right hemipelvis. 6. Extensive atherosclerosis. There is intimal displacement and distal abdominal aorta suspicious for focal dissection. 7. A large amount of stool in colon. Dictated by: Jade Zurita M.D. on 03/18/2017 at 8:48 Date of Service: 03/18/17 X-RAY CHEST ONE VIEW, PORTABLE IMPRESSION: 1. Support lines and tubes as above. 2. Abnormal airspace opacity within the mid left lung and left upper lobe consistent with aspiration versus pneumonia. 3. Scattered nodules are better seen on CT, suspicious for metastatic disease. 4. Streaky opacity within the medial left lung base likely related to subsegmental atelectasis. Dictated by: Nathaniel Ibarra [facility] Interpreted: Jade Zurita MD on 03/18/2017 at 9:46 . Brief History Mr. 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 Evaluation in the ED with stat imaging revealed that he had a perforated viscus that required emergent intervention. He was admitted to CCU for evaluation and treatment of perforated distal gastric ulcer status post EGD, exploratory laparotomy with patch closure. Hospital day 1, postop day 0, ventilator day one. Mr. Fields was initially seen in the ED, and was experiencing a significant amount of pain and discomfort, and was unable to answer many questions. and family were present at that time, and were discussing the possibility of proceeding with surgical intervention to correct his perforated viscus. The noted that she and her had not discussed whether or not he would wish to remain on a ventilator for a prolonged period of time. After much consideration and discussion with the anesthesiologist and surgeon, the family and patient elected to proceed with the emergent procedure. At time of initial evaluation, the patient was quite uncomfortable in his bed and unable to keep focused to answer many questions. Family present was notably upset over the current conditions and need for emergent procedure. Initial documentation indicated that the patient had been experiencing dark stools and increased abdominal pain over the recent days leading to admission. He has an extensive history of malignancy, which is followed by Dr. Atkins, [facility] oncology, with most recent visit dated 03/04/17. Documentation within [facility] also indicate the patient has lost a significant amount of weight, approximately 20% loss within the most recent 4 months. In the ED, temperature 36.6, pulse 89, respiratory rate 18, blood pressure 104/ 62, 99% on room air; initial lab work revealed white count of 9.6 with 97% neutrophils, hemoglobin 9.0 which was later found to be 7.2 approximately 1 hour after initial draw; creatinine 1.61, glucose 257, albumin 3.3; troponin 0.017. He received meropenem, as he has an allergy to penicillins and cephalosporins. This was continued. Stat CT of the chest revealed moderate amount of pneumoperitoneum within the visualized upper abdomen, consistent with viscus perforation. 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 Stat abdomen and pelvis CT was also obtained, the final report pending. Operative report dated 03/18/2017 shows that an EGD visualized a large ulcer in the distal stomach which had perforated, and was closed with Branden patch technique. During the procedure, patient did not require any additional pressor agents to maintain blood pressure. He was stable throughout. He was transferred to CCU in stable condition intubated and sedated without any additional pressor requirements. Hospital Course Perforated gastric ulcer status post exploratory laparotomy, washout, Branden patch application Recurrent hematemesis on 03/23/17 suggests ongoing upper GI pathology, rebleed from gastric ulcer versus stress gastritis. Palliative care consult to discuss goals and pain management fentanyl at 25 mics every 2 hour and fentanyl drip from 45-55 mics per hour. ( Goals for Comfort, DNR/DNI) - opening up with Hospice 04/02/17 Acute GI blood loss anemia, present on admission. This may be ongoing On admit: Hb 9.0, decreased to 7.2; received 2 units packed red blood cells prior to OR Comfort care, no change in medications. - no labs monitoring for further interventions planned at this time Chronic cancer pain. We will titrate the fentanyl as needed for pain control.. - Continue fentanyl PCI (as above) Acute hypoxemic respiratory failure, resolved. - Patient extubated 03/19, no signs of ongoing respiratory distress Severe protein calorie malnutrition, chronic. Ongoing BMI 17 Left nephrostomy tube and ureteral stent placement, chronic. Presumed stable - No Pavon in place as patient has nephrostomy tube; he reports that he is due for change in collection bag - Comfort Care Chronic kidney failure (CKD 3). Presumed stable. On admit: Cr 1.61; improving. -Comfort Care Bilateral Sacral decubiti. Present on admission. Patient is resistant to offloading. - Continue wound care and decubitus precautions Goals of care. Continue to manage his pain control with changes in his fentanyl drip. In addition we are looking at hospice initiation on Wednesday which is her soonest available. Exam Vital Signs (Last) Date Time Temp Pulse Resp B/P Pulse Ox O2 Delivery O2 Flow Rate FiO2 03/28/17 05:41 20 03/27/17 23:42 100 Room Air 03/27/17 16:00 86 03/27/17 08:36 113/60 03/26/17 02:05 4.00 03/24/17 12:06 36.6 Exam General: Alert, Oriented X3, Cooperative, No acute Distress Cachectic looking man Eyes: PERRLA, Scleral Anicteric Mouth: Mouth Normal, Mucous Membranes dry Neck: Supple, no Thyromegaly, trachea central. Chest & Lungs: Clear to auscultation & percussion, No adventitious breath sounds, no crackles, no wheeze Cardiovascular: Normal S1, Normal S2, No Murmurs/Rubs/Gallops, Regular Rate/ Rhythm, No JVD, no peripheral edema) Pulses: Radial (present and equal), Dorsalis Pedi (present and equal) Abdomen: Soft, Non-tender, Non-distended, Normoactive bowel tones. Musculoskeletal: Unremarkable. Normal range of motion, no swollen or erythematous joints Extremities: No edema, no cyanosis, no clubbing. Skin: No rashes. Warm and dry, no erythematous areas Neurological: Grossly neurologically intact, has generalized weakness, Normal Speech, Sensation Intact Lymphatic: Lymph nodes Cervical and Axillary not palpable Test 03/17/17 19:30 4/19/17 22:15 03/18/17 03:00 03/23/17 04:24 Prothrombin Time 10.3sec (8.1-12.5) Prothromb Time International Ratio 0.96ratio Troponin T 0.017ug/L (0.0-0.011) Pro-B-Type Natriuretic Peptide 756.1pg/mL (0-376) Lipase 19U/L (13-60) Hold Lopez Top Tube Received (Received) Hold Urine Received (Received) Phosphorus Level 3.8mg/dL (2.5-4.9) Magnesium Level 1.8mg/dL (1.6-2.6) Total Bilirubin 0.4mg/dL (0.0-1.2) Aspartate Amino Transf (AST/SGOT) 18U/L (0-50) Alanine Aminotransferase (ALT/SGPT) 11U/L (0-44) Alkaline Phosphatase 130U/L (25-160) Total Protein 4.6g/dL (6.4-8.4) Albumin 2.6g/dL (3.4-5.0) Triglycerides Level 142mg/dL (0-149) White Blood Count 12.7th/mm3 (3.8-10.1) Red Blood Count 2.91mil/mm3 (4.40-5.80) Hemoglobin 7.8g/dL (13.8-17.2) Hematocrit 26.2% (41.0-50.0) Mean Corpuscular Volume 90.0fL (81-100) Mean Corpuscular Hemoglobin 26.8pg (27.0-35.0) Mean Corpuscular Hemoglobin Concent 29.8% (32.0-37.0) Red Cell Distribution Width 17.9% (12.3-15.4) Platelet Count 229bil/L (150-400) Neutrophils (%) (Auto) 93.8% (40-74) Lymphocytes (%) (Auto) 2.1% (14-46) Monocytes (%) (Auto) 3.5% (4-12) Eosinophils (%) (Auto) 0.1% (0-5) Basophils (%) (Auto) 0.1% (0-3) Sodium Level 145mEq/L (134-144) Potassium Level 3.5mEq/L (3.5-5.2) Chloride Level 112mEq/L (97-108) Carbon Dioxide Level 19mmol/L (18-29) Blood Urea Nitrogen 48mg/dL (8-27) Creatinine 1.11mg/dL (0.76-1.27) Estimat Glomerular Filtration Rate 69mL/min (>59) Glucose Level 142mg/dL (60-99) Calcium Level 7.9mg/dL (8.5-10.1) Procalcitonin 1.10ng/mL (0.00-0.08) Microbiology Results MRSA negatvie Microbiology 03/18/17 Blood Fungal Culture, Received Pending 03/18/17 MRSA (PCR) - Final, Complete 03/18/17 Blood culture x 2 no growth to date Discharge Medications Discharge Medications Aspirin/Acetaminophen/Caffeine (Rjslsyb-Uzlhgakzbyngm-Wpyn Tab) 250 Mg-250 Mg- 65 Mg Tablet 2 TABLET PO BIDWM (Reported) Atezolizumab (Tecentriq) 1,200 Mg/20 Ml (60 Mg/Ml) Vial 1,200 MG IV q3w ( Reported) Calcitriol (Rocaltrol) 0.25 Mcg Capsule 0.25 MCG PO Q48 Prescribed by: BARBARA FONG MD Dexamethasone (Dexamethasone) 4 Mg Tablet 4 MG PO DAILYWM (Reported) Labetalol (Labetalol) 100 Mg Tablet 50 MG PO BID (Reported) Oxybutynin Chloride (Oxybutynin Chloride) 5 Mg Tablet 10 MG PO TID Prescribed by: BARBARA FONG MD Pantoprazole Sodium (Protonix IV) 40 Mg Vial 40 MG IVPUSH DAILY Prescribed by: BARBARA FONG MD As needed Fentanyl Citrate (Fentanyl 0.05 mg/ml Vial) 100 Mcg/2 Ml Vial 25 MCG IVPUSH Q2H PRN PRN For Severe Pain Prescribed by: BARBARA FONG MD Haloperidol Lactate (Haloperidol) 5 Mg/1 Ml Ampul 1-2 MG IVPUSH Q1H PRN PRN See Dose Instructions Prescribed by: BARBARA FONG MD Morphine Sulfate Oral Concentrate (Roxanol Oral Concentrate) 100 Mg/5 Ml (20 Mg/ Ml) Solution 2-10 MG SL/PO Q1H PRN PRN For Pain or SOB Prescribed by: MARITZA AMAYA MD diphenhydrAMINE HCl (Diphenhydramine Inj) 50 Mg/1 Ml Vial 25 MG IVPUSH Q6H PRN PRN For Itching Prescribed by: BARBARA FONG MD Followup Plan Disposition: [facility] Follow-up plan Patient will be under the Care of Doctor at [facility] Discharge Diet: Other (Comfort Care) Discharge Activity: Other (Comfort Care) Time spent 40 minutes spend Barbara Fong MD Mar 28, 2017 12:32
--- NOTE | 2017-03-28 12:58 | NUR ---
Social Work- Readiness for Discharge Data: MAGO spoke with UR RN and MD who state that pt is medically stable for discharge today. Discharge orders have been written. Pt accepted at [facility] pending private room. MAGO spoke with Akua, admissions at [facility], who confirms that [facility] does NOT have a private room available today, but there is the potential for the pt to change rooms after a few days. MAGO spoke with Pat, admissions at [facility], who states that they would not be able to manage pt's IV Fetanyl Drip and he would have to transition to a scheduled pain pump prior to admission. Pat cannot confirm acceptance until at least Wednesday when they are able to check insurance, have access to their computer (which is receiving maintenance this weekend) and order the pain pump. MAGO spoke with family and pt at bedside regarding this information and pt's discharge plan. Pt's family is adamant that they require a private room and want the pt to remain on the IV drip versus transition to a scheduled pain pump. Pt's family is very concerned about pt's pain management and transporting him to [facility]. MAGO provided emotional support and validation. Pt and family only agreeable to discharging to [facility] when there is a private room available. Discharge orders have been written, family is appealing discharge. UR RN notified. Assessment: Pt who is on comfort care. Plan: Pt is medically stable for discharge. Discharge Orders have been written. Pt has been accepted at [facility], no private rooms are available for pt today. Pt and family only agreeable to discharging to [facility] when there is a private room available. Discharge orders have been written, family is appealing discharge. MARIAH RN notified. BONY to call [facility] 03/29/17 regarding status of private room. BONY Davis Addendum: 03/28/17 at 1423 by SEA PINTO Of Note: [facility] is able to accept pt and maintain his current fentanyl drip.
--- NOTE | 2017-03-28 14:52 | NUR ---
Case Management: Discharge order written. Pt appealing discharge. has started the appeal.
--- NOTE | 2017-03-28 17:42 | NUR ---
Comfort care Pt requested to be turned twice during shift, declined to have oxygen on. Mepilex in place on right hip. Pt's pain at comfortable level with fentanyl drip at 66mcg. Pt is having some confusion and thinks that he is in a truck that he can't get to run. Nephrostomy draining light green urine. LIZY intact and draining sero-sanguineous fluid. Comfort cart provided outside room for family. Bed in low, call light in reach.
[2017-03-29] MEDS: fentaNYL 2,500 mCg/250 mL 2,500 MCG in IV Premix 1 EACH IV SCH (05:59)
--- NOTE | 2017-03-29 06:26 | NUR ---
Comfort Care- haldol Pt allows repositioning in bed and floating with pillows this shift. He does wince and grimace with pain upon being lifted. Per family request fentanyl drip lowered from 66mcg/h to 60 mcg/hr at 2014 to test his pain level and observe for reduction in hallucinations. Pt complained of abdominal pain at 2130 and head pain at 2245. Hallucinations and restlessness continued, fentanyl drip increased back to 66 and pt given 1mg haldol at 0130 per family request after discussion of side effects/chemical restraint/extending hospital stay. Pt has no complaints of chest pain or SOB, he does want to get oob and go to [place], and states he needs to turn off his truck. Redirection and haldol had good effect, pt relaxes for rest of shift. No excessive secretions noted. Pt able to state needs appropriately in AM, improved from evening. Care continues
--- NOTE | 2017-03-29 08:19 | PROG NOTE ---
[address] [address] PROGRESS NOTE PATIENT: MARTIN MARIN : 1945 MR#: [id number] ADMIT: 03/17/2017 JOB ID: [id number] DATE: 03/29/2017 SUBJECTIVE: The patient is a 72-year-old gentleman with metastatic bladder cancer. He is now receiving supportive care, anticipating transfer to [facility] in the near future. He has been on a fentanyl drip. He had hallucinations yesterday and received a dose of intravenous Haldol, which may temporarily delay his transfer. He has some mild discomfort this morning. He is able to take small amounts of liquids and food, with minimal discomfort. No emesis. No fever. OBJECTIVE: Afebrile. HEENT: Conjunctivae pale. Mucous membranes dry. Chest: Decreased at the bases. Cardiac exam: Mildly tachycardic. Abdomen: Postsurgical changes. Active bowel tones. Extremities: Extensive muscular wasting, 1+ distal pulses. LABORATORIES: None today. ASSESSMENT AND PLAN: 1. Recurrent progressive, T4 N1 M1, transitional cell carcinoma of the urinary bladder: Recent imaging showed enlarging pulmonary nodules. Given his debilitated state and advancing disease, he opted for palliative care. Continue to titrate his narcotic regimen and supplemental oxygen to maintain comfort. Transfer to [facility] when a bed is available, as family will be unable to care for his end of life needs at home. 2. Gastric perforation: Day 12 status post laparotomy with patch closure of gastric perforation.
[2017-03-29] MEDS: Pantoprazole 4 mg/mL 10 mL Inj IVPUSH SCH (10:02)
--- NOTE | 2017-03-29 11:11 | NUR ---
Social Work-readiness for discharge: Data:EMR reviewed. Pt is on day 12 of hospitalization for perforated viscus per H&P. Pt's family appealed discharge yesterday. MAGO spoke with Elizabet at [facility] who confirms they are working on private room for pt and anticipate to have this in place later today or tomorrow. Elizabet states she needs to speak with Pharmacy regarding the fentanyl drip and likely would have this ready tomorrow. MAGO explained per morning rounds, palliative care working on medications. Elizabet anticipates to have medications and private room in place for pt tomorrow. Palliative care updated. Pt does have spot to open with Hospice on 04/02 at home on [address]. left message with Hospice. SW will continue to follow. Assessment:Pt who is on comfort care. Plan:[facility] pt. [facility] anticipates to have medications and private room in place. Pt does have spot to open with Hospice on 04/02 at home on [address]. left message with Hospice. SW will continue to follow. BONY Crawford Addendum: 03/29/17 at 1602 by NAT MCPHERSON SS MAGO confirmed with [facility] that family can stay with pt in the room. Hospice does have spot for pt at home on Wednesday and [facility] is aware of this information. SW and Palliative care meet with pt and family to discuss. Family aware of [facility] and also Hospice. SW will continue to follow. BONY Crawford
--- NOTE | 2017-03-29 11:18 | PCM.PALLBR ---
Palliative Care Recommendation Summary of palliative recommendations: 03/29/17-discussion with his daughter and granddaughter at patient's bedside the patient is not involved in the discussion. Family's concerns with his agitation and hallucinations-seemed to respond well to 1 mg of IV haloperidol. Reviewed delirium in the dying process and with generalized weakness. Reviewed goal of regular scheduling of haloperidol to minimize agitation and hallucinations. Family was concerned due to his agitation last night and threatening to get out of bed without assistance Pain relief seems to be adequate. Attempts to decrease his fentanyl IV apparently resulted in increased complaints of abdominal pain-and dose was increased. Reviewed potential for management of medications orally rather than IV. Family is very concerned regarding patient's comfort-and they verbalize concern in the potential to settling from transfers-i.e. to SNF but also concerned about changing mode of pain control. There goal at this point is strictly for comfort. He has Pavon in as well as G- tube draining Disposition as yet unclear whether patient will go to ECF with IV fentanyl or home with hospice but would need coordinating significant increase in caregiving as well as changed to oral preparations 03/26/17 -Pain relief is tolerable as per pt. He denies pain--adamantly but at times grimaces. He is on his fentanyl IV and only occ BTP MS-changed to liquid/oral Goal is for placement with his IV fentanyl for control or if need be will need to change to oral and family needs reassurance that this will be adequate. PO as tolerated code status DNR/DNI, comfort- family supported and issues reviewed 03/24/17--.Inadequate pain relief, but pt refusing more meds. Maintain fentanyl from at 35mcg/hr but asked RNs to keep low threshold for titrating up drip as pt does NOT look comfortable and admits to pain, but seems to be afraid of pain meds. Will try to help him get more comfortable with frequent visits and adjustments of meds, as he permits. Later in morning, pt willing to have more pain relief and fentanyl gtt bumped up to 45mcg/hr. Tomorrow: keep low threshold for titrating up drip to comfort. 03/23/17-- UGI bleed with increasing abd pain. Goals of care reviewed with his since pt cannot participate. Reviewed option of transfusions if nec, possible EGD and further treatments which would be aggressive., His requests comfort only. She feels this would only prolong his suffering and at this point requests no transfusion, no interventions except comfort meds. Meds changed to comfort and started on continuous fentanyl drip and other comfort orders. Hospice is notified he is likely to in hospital. DPOA/Advanced Directives/POLST: 1. Code = FULL CODE currently. 2. DPOAHC is his Cora. Family/emotional support: is good, and dtr are very involved. Spiritual support- I believe pt has significant psycho/spiritual distress around dying and is afraid of pain medications. Dr. Ferrer discussed with Theater Teacheramaris Geller and asked her for more visits to patient, if possible Patient Goals: 1. Patient wants to be told the truth about his/her illness, even if it is unpleasant. 2. His daughter feels that he is getting tired of this and has mentioned wanting it to end but difficult time talking about it. 3. Patient would choose quality of life over quantity of life, and defines quality as active and independent-His family does not think his QOL is good or that it is likely to improve in the near future. 4. Patient would request that comfort care take priority over cognitive/mental confusion. Disposition: goal is for discharge but where is yet to be determined Problems: End of Life Preferences DNR/DNI as of 03/22 4..17--comfort care Goals of [place] with assistance of hospice for sx management Disposition hope is for home Resuscitation Status Resuscitation Status: DNR/DNI:Do Not Resuscitate/Intubate POLST Updates/Changes Previous POLST?: No Artificially Admin Nutrition: No Artifical Nutrition by Tube POLST Discussed with: Patient POLST Review Outcome: New Form Completed . Pain: Moderate Symptom management: Agitation, Delirium Total time 60 minutes; >50% face to face with patient and/or family, providing counselling regarding plans and recommendations, and in care coordination with his/her medical teams. Majority of time spent in discussion with patient's family and coordination of care with case management social work and hospitalist team. At this point need further delineation regarding challenge of discharge, med management and the family's anxiety I also spent an additional [ ] minutes counseling for advanced care planning with the patient/the patients family/the surrogate decision maker. copies to: Ben Ferrari MD; Gregory Atkins MD Palliative Brief Note Date of Service March 29, 2017 . 72 yo with metastatic bladder CA and recent perforated gastric ulcer treated surgically. He had a bout of UGI bleeding the day before planned d/c to home on hospice. It was thought that with the acute GI bleed he might pass in short time but his blleding stopped and he stabilized. Issues for the past week has been pain managment-started with IV fentanyl which has been effective but requiring some increase in dosing- now at 66 mcg/hr. His main area of pain is abd rosemary LLQ but he also had c/o pain "all over" and last noc seemed to have a bad ASH. Other issue is hallucinations and agitation which has been a challenge for the family rosemary with the thought of him being discharged and not having family at bedside in SNF 21/06. He was given haloperidol 1 mg IV last noc and finally settled and slept. O: patient arouses minimally comfortable but confused Kimberley Lopez MD March 29, 2017 11:18
[2017-03-29] MEDS ORDERED: Haloperidol 2 mg/mL 5 mL Oral Conc Liquid PO SCH ×2 (12:00)
--- NOTE | 2017-03-29 12:54 | NUR ---
Palliative Liquid Hydrogen Plant Operator Note03/29/1711:00AM This proposal lead writer met with pt.'s , Cora, and daughter, Luis, to review course of pt.'s care at [facility] and learn more about their concerns with the process of discharge planning for pt. to leave [facility]. Other family present included a granddaughter and a grandson. Pt. appeared drowsy but was responsive to direct questions during the conversation. Pt. has been at [facility] since 03/17/17 for treatment of perforated viscus. Pt.'s prognosis is poor and family and patient are aware he is closer to end of life. During his hospitalization pt. has at times appeared to be declining quickly, but as of this weekend he is assessed to be clinically stable to discharge from [facility]. Family appealed the discharge as they perceive pt.'s condition to not be stable as demonstrated by both occasional confusion and hallucinations (which they acknowledge do not distress pt.) and pain when pt. is moved. Per and daughter, each time pt. has moved to a different room/floor at [facility] he experiences severe pain and increased confusion. Family notes they very much want pt. to return to their home in [place] with [facility] to provide hospice care. Family shared they believe they can manage pt.'s care needs at home, and noted that there are many people in their community who would help with pt.'s care needs. Per case management notes, [facility] is able to serve pt. at his home, but cannot open pt. to services until Wednesday, April 02. Case Management has identified a bed at [facility] for pt. to go to until April 02. Family is aware of this placement option, but shared with this proposal lead writer they feel it is 'cruel' to move pt. twice given how much physical and cognitive distress it causes him. Family also expressed concern with local SNF placement as they want a family member to be able to stay overnight with pt. and other family wishes to stay in [place] in order to visit pt. frequently. Family expressed financial concerns [facility] if pt. cannot return to [place] directly from [facility]. This proposal lead writer shared with family that further conversation between pt.'s medical team would be held today regarding what is clinically needed for him to be comfortable when he does leave [facility]. This proposal lead writer let family know she would visit again later today to update them on discharge planning options. After meeting with pt.'s family this proposal lead writer spoke with case management PUMP TECHNICIANChely, about family's concerns related to pt.'s discharge options. This proposal lead writer also called [facility] to see if there is any way they could open pt. to services [facility] (i.e., March 30) instead of on April 02 so that pt. could discharge directly home from [facility]. Depending on availability of [facility], pt. may have to move to identified SNF for several days. BONY Argueta LASW Palliative Care Services Addendum: 03/29/17 at 1509 by BRENDA Aparicio Followup 03/29/1714:45PM This proposal lead writer and CM Chely LOVETT, met with family to inform them that [facility] will likely have a private room available for pt., and that one family member can remain with pt. at [facility] while he is there. Family also told that [facility] can open pt. to services on , April 01. Family seemed more amenable to having pt. transfer from [facility] to [facility]. They expressed that they are not sure if they will decide to have him return home from [facility] with [facility] services or just let him remain at [facility] for care. Family shared they understand pt.'s care needs are very high and they want him to have the right level of support as he moves closer to end of life. Message left for [facility] that family would like to know bed dimensions if they decide to have pt. transfer home with Hospice on 04/01/17. BONY Argueta, JOELLE Palliative Care Services
--- NOTE | 2017-03-29 14:50 | PCM.PNMED ---
Subjective Date of Service March 29, 2017 Subjective Patient appears comfortable propped up in bed, family states he is hallucinating. He is seeing things, he is talking out of his memory. Patient lost 40lb in the recent months. family is distressed by him getting out of his bed due to agitation last evening. They are wondering if we can improve his anti-agitation medication. They feel that patient will require 24-hour care. Exam Vital Signs Vital Sign - Last Date Time Temp Pulse Resp B/P Pulse Ox O2 Delivery O2 Flow Rate FiO2 03/28/17 20:21 Supplement Oxygen 03/28/17 05:41 20 03/27/17 23:42 100 03/27/17 16:00 86 03/27/17 08:36 113/60 03/26/17 02:05 4.00 03/24/17 12:06 36.6 Intake and Output 03/28/17 03/28/17 03/29/17 Cumulative From/Thru 15:00 23:00 07:00 03/17/17 18:57 - 03/29/17 06:53 Intake Total 429 ml 500 ml 00413 ml Output Total 995 ml 690 ml 49282 ml Balance -566 ml -190 ml 6037 ml Intake Oral 200 ml 500 ml 6400 ml IV Total 229 ml 70560 ml Output Urine Total 875 ml 600 ml 63422 ml Stool Total 450 ml Gastric Drainage Total 200 ml Drainage Total 120 ml 90 ml 1943 ml Estimated Blood Loss 2 ml # Voids 2 # Bowel Movements 6 Exam General: Cachectic appearing Abd: Abdominal incision over the top of stomach, drain is present on the left side, normal bs, nondistended Legs: 2+ pitting edema MSK: 3/5 muscle strength in lower extremities Heart RRR, no S3-S4 murmurs Lungs: CTA anteriorly, posteriorly dull in RLQ, Skin: erythema at T7 level b/l, prompted upon which, pt said he had pain T5 -T7. He also has a Mepilex dressing over his left greater trochanter. Tenderness at T5/C7 with movement Psych: Negative for anxiety IVs and Medications Medications Reviewed: Medications were reviewed in detail Lab and Diagnostics Result Diagram: 03/23/17 0424 03/23/17 0424 Microbiology MRSA negatvie Microbiology 03/18/17 Blood Fungal Culture, Received Pending 03/18/17 MRSA (PCR) - Final, Complete 03/18/17 Blood culture x 2 no growth to date X-Rays, CTs and MRIs Date of Service: 03/17/17 X-RAY CHEST ONE VIEW, PORTABLE IMPRESSION: 1. Small nodular opacity in the left apex measuring approximately 1 cm. The finding is nonspecific but new from the prior study. The differential includes confluent bony structures as well as neoplasm or atypical infection. Recommended a repeat PA and lateral study when clinically feasible. Dictated by: Mikhail Harris M.D. on 03/17/2017 at 20:08 Date of Service: 03/17/17 CT ANGIO CHEST PULMONARY EMBOLISM IMPRESSION: 1. Moderate amount of pneumoperitoneum within the visualized upper abdomen consistent with viscus perforation. This may be secondary to a perforated mass in the region of the gastric antrum. Recommend further evaluation with dedicated abdominal CT. 2. No evidence of pulmonary embolism. 3. Increase in size of multiple bilateral pulmonary nodules consistent with progression of metastatic disease. 4. Progression of osseous metastatic disease most prominent within the upper thoracic spine and associated mild endplate compression fractures of T2. Findings discussed with Dr. Reeder on 03/17/17 at 10 PM. Dictated by: Mikhail Harris M.D. on 03/17/2017 at 21:57 Date of Service: 03/17/17 CT ABDOMEN AND PELVIS WITHOUT CONTRAST IMPRESSION: 1. Moderate amount of free peritoneal air in the upper abdomen consistent with viscus perforation. The site of perforation is not definitively visualized. The most likely cause of perfusion is gastric or duodenal ulcer. 2. Retroperitoneal adenopathy consistent with metastasis. 3. The regular appearance of bladder compatible with neoplasm. 4. Bilateral ureter stents. There is a left percutaneous nephrostomy. Mild left pelviectasis. 5. Lytic metastasis involving lumbar spine and right hemipelvis. 6. Extensive atherosclerosis. There is intimal displacement and distal abdominal aorta suspicious for focal dissection. 7. A large amount of stool in colon. Dictated by: Jade Zurita M.D. on 03/18/2017 at 8:48 Date of Service: 03/18/17 X-RAY CHEST ONE VIEW, PORTABLE IMPRESSION: 1. Support lines and tubes as above. 2. Abnormal airspace opacity within the mid left lung and left upper lobe consistent with aspiration versus pneumonia. 3. Scattered nodules are better seen on CT, suspicious for metastatic disease. 4. Streaky opacity within the medial left lung base likely related to subsegmental atelectasis. Dictated by: Nathaniel Ibarra RRA Interpreted: Jade Zurita MD on 03/18/2017 at 9:46 . Assessment & Plan 1. Perforated gastric ulcer status post exploratory laparotomy, washout, Branden patch application, and drain placement, acute, present on admission. Recurrent hematemesis on 03/23/17 suggests ongoing upper GI pathology, rebleed from gastric ulcer versus stress gastritis. - Currently on Comfort Care with Palliative on board for pain management - Pain regimen currently with Fentanyl drip with Fentanyl Iv pushes for breakthrough pain 2 Acute GI blood loss anemia, present on admission. This may be ongoing. -Patient is on comfort care currently 3 Chronic cancer pain. - continue pain regimen as mentioned above -- Palliative care is consulted we appreciate the recommendations 4 Acute hypoxemic respiratory failure, resolved. - Patient extubated 03/19, no signs of ongoing respiratory distress - currently Do not intubate status 5 Severe protein calorie malnutrition, chronic. Ongoing - BMI 17 on admission - currently tolerating some PO intake 6 Left nephrostomy tube and ureteral stent placement, chronic. Presumed stable - No Pavon in place as patient has nephrostomy tube; he reports that he is due for change in collection bag - Comfort Care 7 Chronic kidney failure (CKD 3). Presumed stable. On admit: Cr 1.61; improving. -Comfort Care 8 Bilateral Sacral decubiti. Present on admission. Patient is resistant to offloading. - Continue wound care and decubitus precautions 9. Hallucinations: Increased his by mouth scheduled Haldol after discussing case with palliative care Disposition: Patient ready for discharge and [facility] able to take patient. However family refused discharge and appealed 03/28. Family wish for a private room at the facility but no rooms available but not private, now it appears that they do not want to take patient to [facility] even if a private room is available. Still awaiting appeal results. Pain Evaluation: Adequate Pain Control GI Prophylaxis: Proton Pump Inhibitor VTE Prophylaxis: Sub-Q Heparin (Unfractionated), SCDs VTE Mechanical Devices: Intermittant Pneumatic CD Resuscitation Status: DNR/DNI:Do Not Resuscitate/Intubate Carmen Huynh DO March 29, 2017 14:50
--- NOTE | 2017-03-29 16:05 | NUR ---
Palliative care note D/A: Case discussed today with joseph Mera as to history and plans for pt. Case also discussed with Mitra LOVETT as well as PC provider. Pt family seen today by Mitra LOVETT. Decision has been reached between CM and PC department that PC will no longer be involved in planning for dispo for pt. P: Palliative care to follow as needed. Judith MARTINEZ, CCM
[2017-03-29] MEDS ORDERED: 0.9% Sodium Chloride 250 ML ONE (16:25)
--- NOTE | 2017-03-29 17:39 | NUR ---
spiritual care: follow up collar turner updated, family offered brief coping reports. Pt very drowsy
[2017-03-29] MEDS: Haloperidol 2 mg/mL 5 mL Oral Conc Liquid PO SCH ×2 (17:41→20:43)
--- NOTE | 2017-03-29 18:30 | NUR ---
Activity Pt appeared comfortable throughout shift. PO Haldol started. Mepilexes applied to back during skin check. Family at bedside, call light within reach.
--- NOTE | 2017-03-30 04:55 | NUR ---
Comfort Care Pain managed with fentanyl drip- pt does allow repositioning and states he feels cramped and stiff. Repositioned and blankets removed with good result. Pt appears to have no appetite, drinks water with PO meds. PO haldol given at HS, pt seems less agitated than previous noc shift. Nephrostomy draining green urine. LIZY draining pale yellow fluid. Family at bedside. Care continues
[2017-03-30] MEDS: Haloperidol 2 mg/mL 5 mL Oral Conc Liquid PO SCH ×4 (09:00→21:00)
[2017-03-30] MEDS: Pantoprazole 4 mg/mL 10 mL Inj IVPUSH SCH (09:00)
--- NOTE | 2017-03-30 09:33 | NUR ---
Received call from [place] at [facility], they sided with the pt. The reasons: Hospice can open with the pt April 02. Pt is on a fentnyl drip. DC plan that does not include Hospice will lead to readmit and is not appropriate. Advised FUSION ANALYST.
--- NOTE | 2017-03-30 10:31 | NUR ---
Palliative care note D/A: Case discussed today in dispo rounds. Alerted team that PC has signed off case. Phone call to Jessica ([facility]) to alert her as well that palliative care has signed off case. P: No further need for PC to follow. Judith MARTINEZ CCM Addendum: 03/30/17 at 1226 by NAT MALIN PC note amendment POL scanned and sent to Jessica at [facility]. Judith MARTINEZ [facility]
--- NOTE | 2017-03-30 13:30 | NUR ---
Comfort Pt repositioned for comfort. Fentanyl gtt still running. Pt drowsy but oriented. Follows commands and speaks appropriately.
--- NOTE | 2017-03-30 15:10 | NUR ---
Social Work-readiness for discharge: Data:EMR reviewed. Pt is on day 13 of hospitalization for perforated visus per H&P. Pt is on comfort care. MAGO followed up with family this morning regarding discharge planning, SW role explained. Family explained that they have decided they would prefer pt to go to [facility] instead of home on Hospice. Pt to stay on fentanyl drip at facility. MAGO confirmed with Elizabet at [facility] that they are able to accept pt on drip and this will skill him with MCR so they will not need to pay privately per Elizabet. Elizabet would like RX for fentanyl drip today so they can order medications for tomorrow. MAGO faxed RX to facility. Elizabet also requesting a midline, which MD will order for pt. MAGO spoke with pt's family at bedside and daughter who are in agreement with plan to discharge from hospital tomorrow to [facility] with private room. SW explained [facility] is ordering medication for drip and they will have this for pt tomorrow. SW updated Jessica at Hospice to cancel pt's opening that family is planning on having pt go to [facility]. Paperwork and PASRR in the chart. SW will continue to follow. Assessment:Pt who is on comfort care. Plan:Pt to discharge to [facility] tomorrow on comfort care with continued Fentanyl drip. [facility] has RX for drip and will have medication for pt tomorrow. Family updated and agreeable. Paperwork and PASRR in the chart. SW will continue to follow. BONY Crawford
[2017-03-30] MEDS: fentaNYL 2,500 mCg/250 mL 2,500 MCG in IV Premix 1 EACH IV SCH (16:56)
[2017-03-30] MEDS ORDERED: Albuterol 2.5 mg/3 mL Inhalation Solution NEB PRN (18:55)
[2017-03-30] MEDS ORDERED: Sodium Chloride LOK Flush 10 mL Syringe IVFLUSH PRN ×2 (19:05)
--- NOTE | 2017-03-30 21:46 | PCM.PNMED ---
Subjective Date of Service March 30, 2017 Subjective Patient is seen and examined. He is resting quietly, does not appear to be agitated. Urine appears cloudy. Family agreed that he is being less agitated since increasing dose of Haldol. Family has changed their mind about going home for hospice for patient, they are accepting the [facility] admission likely tomorrow. They have no other concerns Exam Vital Signs Vital Sign - Last Date Time Temp Pulse Resp B/P Pulse Ox O2 Delivery O2 Flow Rate FiO2 03/29/17 22:00 Supplement Oxygen 03/28/17 05:41 20 03/27/17 23:42 100 03/27/17 16:00 86 03/27/17 08:36 113/60 03/26/17 02:05 4.00 03/24/17 12:06 36.6 Intake and Output 03/29/17 03/29/17 03/30/17 Cumulative From/Thru 15:00 23:00 07:00 03/17/17 18:57 - 03/30/17 05:14 Intake Total 521 ml 281 ml 0 ml 31133 ml Output Total 965 ml 730 ml 06502 ml Balance 521 ml -684 ml -730 ml 5144 ml Intake Oral 200 ml 0 ml 6600 ml IV Total 521 ml 81 ml 52991 ml Output Urine Total 800 ml 650 ml 21184 ml Stool Total 450 ml Gastric Drainage Total 200 ml Drainage Total 165 ml 80 ml 2188 ml Estimated Blood Loss 2 ml # Voids 2 # Bowel Movements 0 6 Exam General: Cachectic appearing Abd: Abdominal incision over the top of stomach, drain is present on the left side, normal bs, nondistended Legs: 2+ pitting edema MSK: 3/5 muscle strength in lower extremities Heart RRR, no S3-S4 murmurs Lungs: CTA anteriorly Psych: Negative for anxiety Neuro: Appears somnolent IVs and Medications IV Fluids None Medications Reviewed: Medications were reviewed in detail Lab and Diagnostics Microbiology MRSA negatvie Microbiology 03/18/17 Blood Fungal Culture, Received Pending 03/18/17 MRSA (PCR) - Final, Complete 03/18/17 Blood culture x 2 no growth to date X-Rays, CTs and MRIs Date of Service: 03/17/17 X-RAY CHEST ONE VIEW, PORTABLE IMPRESSION: 1. Small nodular opacity in the left apex measuring approximately 1 cm. The finding is nonspecific but new from the prior study. The differential includes confluent bony structures as well as neoplasm or atypical infection. Recommended a repeat PA and lateral study when clinically feasible. Dictated by: Mikhail Harris M.D. on 03/17/2017 at 20:08 Date of Service: 03/17/17 CT ANGIO CHEST PULMONARY EMBOLISM IMPRESSION: 1. Moderate amount of pneumoperitoneum within the visualized upper abdomen consistent with viscus perforation. This may be secondary to a perforated mass in the region of the gastric antrum. Recommend further evaluation with dedicated abdominal CT. 2. No evidence of pulmonary embolism. 3. Increase in size of multiple bilateral pulmonary nodules consistent with progression of metastatic disease. 4. Progression of osseous metastatic disease most prominent within the upper thoracic spine and associated mild endplate compression fractures of T2. Findings discussed with Dr. Reeder on 03/17/17 at 10 PM. Dictated by: Mikhail Harris M.D. on 03/17/2017 at 21:57 Date of Service: 03/17/17 CT ABDOMEN AND PELVIS WITHOUT CONTRAST IMPRESSION: 1. Moderate amount of free peritoneal air in the upper abdomen consistent with viscus perforation. The site of perforation is not definitively visualized. The most likely cause of perfusion is gastric or duodenal ulcer. 2. Retroperitoneal adenopathy consistent with metastasis. 3. The regular appearance of bladder compatible with neoplasm. 4. Bilateral ureter stents. There is a left percutaneous nephrostomy. Mild left pelviectasis. 5. Lytic metastasis involving lumbar spine and right hemipelvis. 6. Extensive atherosclerosis. There is intimal displacement and distal abdominal aorta suspicious for focal dissection. 7. A large amount of stool in colon. Dictated by: Jade Zurita M.D. on 03/18/2017 at 8:48 Date of Service: 03/18/17 X-RAY CHEST ONE VIEW, PORTABLE IMPRESSION: 1. Support lines and tubes as above. 2. Abnormal airspace opacity within the mid left lung and left upper lobe consistent with aspiration versus pneumonia. 3. Scattered nodules are better seen on CT, suspicious for metastatic disease. 4. Streaky opacity within the medial left lung base likely related to subsegmental atelectasis. Dictated by: Nathaniel Ibarra RRA Interpreted: Jade Zurita MD on 03/18/2017 at 9:46 . Assessment & Plan 1. Perforated gastric ulcer status post exploratory laparotomy, washout, Branden patch application, and drain placement, acute, present on admission. Recurrent hematemesis on 03/23/17 suggests ongoing upper GI pathology, rebleed from gastric ulcer versus stress gastritis. - Currently on Comfort Care with Palliative on board for pain management - Pain regimen currently with Fentanyl drip with Fentanyl Iv pushes for breakthrough pain -- Scripts were written for fentanyl drip per [facility]. -- Family has no more complaints about his pain control 2 Acute GI blood loss anemia, present on admission. This may be ongoing. -Patient is on comfort care currently 3 Chronic cancer pain. - continue pain regimen as mentioned above -- Palliative care is consulted we appreciate the recommendations: Palliative care has signed off 03/29 4 Acute hypoxemic respiratory failure, resolved. - Patient extubated 03/19, no signs of ongoing respiratory distress - currently Do not intubate status 5 Severe protein calorie malnutrition, chronic. Ongoing - BMI 17 on admission - currently tolerating some PO intake 6 Left nephrostomy tube and ureteral stent placement, chronic. Presumed stable - No Pavon in place as patient has nephrostomy tube; he reports that he is due for change in collection bag - Comfort Care 7 Chronic kidney failure (CKD 3). Presumed stable. On admit: Cr 1.61; improving. -Comfort Care 8 Bilateral Sacral decubiti. Present on admission. Patient is resistant to offloading. - Continue wound care and decubitus precautions -- We will continue wound care upon discharge 9. Hallucinations: Increased his by mouth scheduled Haldol after discussing case with palliative care Disposition: Patient ready for discharge and [facility] able to take patient. However family refused discharge and appealed 03/28. Family wish for a private room at the facility but no rooms available but not private, now it appears that they do not want to take patient to [facility] even if a private room is available. Still awaiting appeal results. Patient's family won the appeal. However they have decided to take the patient to [facility], which may happen tomorrow GI Prophylaxis: Proton Pump Inhibitor VTE Prophylaxis: Sub-Q Heparin (Unfractionated), SCDs VTE Mechanical Devices: Intermittant Pneumatic CD Resuscitation Status: DNR/DNI:Do Not Resuscitate/Intubate Carmen Huynh DO March 30, 2017 06:02
--- NOTE | 2017-03-31 07:35 | NUR ---
Comfort care Pain managed with fentanyl drip at 76 mcg/hr. Midline placed by IVT 03/30. Haldol intensol given per schedule. Pt repositioned through shift to maintain comfort. LIZY draining clear fluid. Nephrostomy draining pale green fluid. Family in room throughout shift. Care continues
--- NOTE | 2017-03-31 08:35 | NUR ---
spiritual care: (late entry) conversational visit with pt and family. pt seeming to track basic conversation. Family reported on anticipatory grief process and reflections on discharge planning as they anticipate pt's discharge and end of life at [facility]. Family members in room.
[2017-03-31] MEDS: Haloperidol 2 mg/mL 5 mL Oral Conc Liquid PO SCH ×2 (09:22→12:33)
[2017-03-31] MEDS: Pantoprazole 4 mg/mL 10 mL Inj IVPUSH SCH (09:22)
[2017-03-31] MEDS ORDERED: HALO2ORA PO ×4 (10:56→11:09)
[2017-03-31] MEDS ORDERED: PANT40VI2 IVPUSH (11:07)
[2017-03-31] MEDS ORDERED: OXYB5TAB10 PO (11:07)
--- NOTE | 2017-03-31 11:17 | PCM.DIMED ---
Discharge Instructions Date of Service March 31, 2017 Dates of Hospitalization Mar 17, 2017 at 22:54 Discharge Diagnosis Discharge Diagnosis Primary diagnosis Perforated gastric ulcer status post exploratory laparotomy, washout, Branden patch application, and drain placement, acute, present on admission. Recurrent hematemesis with Acute GI blood loss anemia Chronic bladder cancer pain. on Comfort Care Acute hypoxemic respiratory failure, resolved. Secondary diagnosis Severe protein calorie malnutrition, chronic Left nephrostomy tube and ureteral stent placement Chronic kidney failure (CKD 3). Bilateral Sacral decubitus. Diet Other (Comfort Care, soft diet) Activity Other (Comfort Care) Patient Instructions Patient will need wound care. Patient will need suprapubic urine catheter. Follow-up plan Patient will be under the Care of Doctor at [facility] Carmen Huynh DO March 31, 2017 11:15 Carmen Huynh DO March 31, 2017 11:15
--- NOTE | 2017-03-31 11:43 | PCM.DC.MED ---
Discharge Summary Date of Service March 31, 2017 Dates of Hospitalization Date of Hospital Admission Mar 17, 2017 at 22:54 Date of Discharge: Mar 28, 2017 Providers: Admitting Physician: Kalyani Armenta DO Primary Care Physician: Ben Ferrari MD Attending Physician: Kalyani Armenta DO Diagnosis at Time of Discharge Diagnosis at Time of Discharge Primary diagnosis Perforated gastric ulcer status post exploratory laparotomy, washout, Branden patch application, and drain placement, acute, present on admission. Recurrent hematemesis with Acute GI blood loss anemia Chronic bladder cancer pain. on Comfort Care Acute hypoxemic respiratory failure, resolved. Secondary diagnosis Severe protein calorie malnutrition, chronic Left nephrostomy tube and ureteral stent placement Chronic kidney failure (CKD 3). Bilateral Sacral decubitus. Consultations Oncology: Dr Atkins Surgery: Dr Saul Mcintyre [facility] XRay, CTs & MRIs Date of Service: 03/17/17 X-RAY CHEST ONE VIEW, PORTABLE IMPRESSION: 1. Small nodular opacity in the left apex measuring approximately 1 cm. The finding is nonspecific but new from the prior study. The differential includes confluent bony structures as well as neoplasm or atypical infection. Recommended a repeat PA and lateral study when clinically feasible. Dictated by: Mikhail Harris M.D. on 03/17/2017 at 20:08 Date of Service: 03/17/17 CT ANGIO CHEST PULMONARY EMBOLISM IMPRESSION: 1. Moderate amount of pneumoperitoneum within the visualized upper abdomen consistent with viscus perforation. This may be secondary to a perforated mass in the region of the gastric antrum. Recommend further evaluation with dedicated abdominal CT. 2. No evidence of pulmonary embolism. 3. Increase in size of multiple bilateral pulmonary nodules consistent with progression of metastatic disease. 4. Progression of osseous metastatic disease most prominent within the upper thoracic spine and associated mild endplate compression fractures of T2. Findings discussed with Dr. Reeder on 03/17/17 at 10 PM. Dictated by: Mikhail Harris M.D. on 03/17/2017 at 21:57 Date of Service: 03/17/17 CT ABDOMEN AND PELVIS WITHOUT CONTRAST IMPRESSION: 1. Moderate amount of free peritoneal air in the upper abdomen consistent with viscus perforation. The site of perforation is not definitively visualized. The most likely cause of perfusion is gastric or duodenal ulcer. 2. Retroperitoneal adenopathy consistent with metastasis. 3. The regular appearance of bladder compatible with neoplasm. 4. Bilateral ureter stents. There is a left percutaneous nephrostomy. Mild left pelviectasis. 5. Lytic metastasis involving lumbar spine and right hemipelvis. 6. Extensive atherosclerosis. There is intimal displacement and distal abdominal aorta suspicious for focal dissection. 7. A large amount of stool in colon. Dictated by: Jade Zurita M.D. on 03/18/2017 at 8:48 Date of Service: 03/18/17 X-RAY CHEST ONE VIEW, PORTABLE IMPRESSION: 1. Support lines and tubes as above. 2. Abnormal airspace opacity within the mid left lung and left upper lobe consistent with aspiration versus pneumonia. 3. Scattered nodules are better seen on CT, suspicious for metastatic disease. 4. Streaky opacity within the medial left lung base likely related to subsegmental atelectasis. Dictated by: Nathaniel Ibarra [facility] Interpreted: Jade Zurita MD on 03/18/2017 at 9:46 . Brief History Mr. 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 Evaluation in the ED with stat imaging revealed that he had a perforated viscus that required emergent intervention. He was admitted to CCU for evaluation and treatment of perforated distal gastric ulcer status post EGD, exploratory laparotomy with patch closure. Hospital day 1, postop day 0, ventilator day one. Mr. Fields was initially seen in the ED, and was experiencing a significant amount of pain and discomfort, and was unable to answer many questions. and family were present at that time, and were discussing the possibility of proceeding with surgical intervention to correct his perforated viscus. The noted that she and her had not discussed whether or not he would wish to remain on a ventilator for a prolonged period of time. After much consideration and discussion with the anesthesiologist and surgeon, the family and patient elected to proceed with the emergent procedure. At time of initial evaluation, the patient was quite uncomfortable in his bed and unable to keep focused to answer many questions. Family present was notably upset over the current conditions and need for emergent procedure. Initial documentation indicated that the patient had been experiencing dark stools and increased abdominal pain over the recent days leading to admission. He has an extensive history of malignancy, which is followed by Dr. Atkins, [facility] oncology, with most recent visit dated 03/04/17. Documentation within [facility] also indicate the patient has lost a significant amount of weight, approximately 20% loss within the most recent 4 months. In the ED, temperature 36.6, pulse 89, respiratory rate 18, blood pressure 104/ 62, 99% on room air; initial lab work revealed white count of 9.6 with 97% neutrophils, hemoglobin 9.0 which was later found to be 7.2 approximately 1 hour after initial draw; creatinine 1.61, glucose 257, albumin 3.3; troponin 0.017. He received meropenem, as he has an allergy to penicillins and cephalosporins. This was continued. Stat CT of the chest revealed moderate amount of pneumoperitoneum within the visualized upper abdomen, consistent with viscus perforation. 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 Stat abdomen and pelvis CT was also obtained, the final report pending. Operative report dated 03/18/2017 shows that an EGD visualized a large ulcer in the distal stomach which had perforated, and was closed with Branden patch technique. During the procedure, patient did not require any additional pressor agents to maintain blood pressure. He was stable throughout. He was transferred to CCU in stable condition intubated and sedated without any additional pressor requirements. Hospital Course 1. Perforated gastric ulcer status post exploratory laparotomy, washout, Branden patch application, and drain placement, acute, present on admission. Recurrent hematemesis on 03/23/17 suggests ongoing upper GI pathology, rebleed from gastric ulcer versus stress gastritis. - Currently on Comfort Care with Palliative on board for pain management - Pain regimen currently with Fentanyl drip with Fentanyl Iv pushes for breakthrough pain -- Scripts were written for fentanyl drip per [facility]. -- Family has no more complaints about his pain control -- Family agreed to take patient to [facility], on the day of discharge patient is resting comfortably. All family questions were answered to their satisfaction -- LIZY drain is left in place for surgery recommendations, triage nurse from Dr. Sanchez's office has asked to leave the LIZY drain in place until daily output is less than 30 mL. This [facility] 2 Acute GI blood loss anemia, present on admission. This may be ongoing. -Patient is on comfort care currently -- IV Protonix on discharge to be continued 3 Chronic cancer pain. - continue pain regimen as mentioned above -- Palliative care is consulted we appreciate the recommendations: Palliative care has signed off 03/29 -- Patient is given scripts for fentanyl drip, Haldol 4 Acute hypoxemic respiratory failure, resolved. - Patient extubated 03/19, no signs of ongoing respiratory distress - currently Do not intubate status 5 Severe protein calorie malnutrition, chronic. Ongoing - BMI 17 on admission - currently tolerating some PO intake 6 Left nephrostomy tube and ureteral stent placement, chronic. Presumed stable - Comfort Care -- Nephrostomy tube was left in place 7 Chronic kidney failure (CKD 3). Presumed stable. On admit: Cr 1.61; improving. -Comfort Care 8 Bilateral Sacral decubiti. Present on admission. Patient is resistant to offloading. - Continue wound care and decubitus precautions -- We will continue wound care upon discharge 9. Hallucinations: Increased his by mouth scheduled Haldol after discussing case with palliative care Exam Vital Signs (Last) Date Time Temp Pulse Resp B/P Pulse Ox O2 Delivery O2 Flow Rate FiO2 03/29/17 22:00 Supplement Oxygen 03/28/17 05:41 20 03/27/17 23:42 100 03/27/17 16:00 86 03/27/17 08:36 113/60 03/26/17 02:05 4.00 Exam General: Cachectic appearing Abd: Abdominal incision over the top of stomach, drain is present on the left side, normal bs, nondistended Legs: 2+ pitting edema MSK: 3/5 muscle strength in lower extremities Heart RRR, no S3-S4 murmurs Lungs: CTA anteriorly Psych: Negative for anxiety Neuro: Appears somnolent Test 03/17/17 19:30 03/17/17 22:15 03/18/17 03:00 03/23/17 04:24 Prothrombin Time 10.3sec (8.1-12.5) Prothromb Time International Ratio 0.96ratio Troponin T 0.017ug/L (0.0-0.011) Pro-B-Type Natriuretic Peptide 756.1pg/mL (0-376) Lipase 19U/L (13-60) Hold Lopez Top Tube Received (Received) Hold Urine Received (Received) Phosphorus Level 3.8mg/dL (2.5-4.9) Magnesium Level 1.8mg/dL (1.6-2.6) Total Bilirubin 0.4mg/dL (0.0-1.2) Aspartate Amino Transf (AST/SGOT) 18U/L (0-50) Alanine Aminotransferase (ALT/SGPT) 11U/L (0-44) Alkaline Phosphatase 130U/L (25-160) Total Protein 4.6g/dL (6.4-8.4) Albumin 2.6g/dL (3.4-5.0) Triglycerides Level 142mg/dL (0-149) White Blood Count 12.7th/mm3 (3.8-10.1) Red Blood Count 2.91mil/mm3 (4.40-5.80) Hemoglobin 7.8g/dL (13.8-17.2) Hematocrit 26.2% (41.0-50.0) Mean Corpuscular Volume 90.0fL (81-100) Mean Corpuscular Hemoglobin 26.8pg (27.0-35.0) Mean Corpuscular Hemoglobin Concent 29.8% (32.0-37.0) Red Cell Distribution Width 17.9% (12.3-15.4) Platelet Count 229bil/L (150-400) Neutrophils (%) (Auto) 93.8% (40-74) Lymphocytes (%) (Auto) 2.1% (14-46) Monocytes (%) (Auto) 3.5% (4-12) Eosinophils (%) (Auto) 0.1% (0-5) Basophils (%) (Auto) 0.1% (0-3) Sodium Level 145mEq/L (134-144) Potassium Level 3.5mEq/L (3.5-5.2) Chloride Level 112mEq/L (97-108) Carbon Dioxide Level 19mmol/L (18-29) Blood Urea Nitrogen 48mg/dL (8-27) Creatinine 1.11mg/dL (0.76-1.27) Estimat Glomerular Filtration Rate 69mL/min (>59) Glucose Level 142mg/dL (60-99) Calcium Level 7.9mg/dL (8.5-10.1) Procalcitonin 1.10ng/mL (0.00-0.08) Microbiology Results MRSA negatvie Microbiology 03/18/17 Blood Fungal Culture, Received Pending 03/18/17 MRSA (PCR) - Final, Complete 03/18/17 Blood culture x 2 no growth to date Discharge Medications Discharge Medications Haloperidol Lactate (Haloperidol Lactate) 2 Mg/1 Ml Oral.conc 2 MG PO HS Prescribed by: CARMEN SANCHEZ DO Haloperidol Lactate (Haloperidol Lactate) 2 Mg/1 Ml Oral.conc 1 MG PO TIDWM Prescribed by: CARMEN SANCHEZ DO Oxybutynin Chloride (Oxybutynin Chloride) 5 Mg Tablet 10 MG PO TID Prescribed by: CARMEN SANCHEZ DO Pantoprazole Sodium (Protonix IV) 40 Mg Vial 40 MG IVPUSH DAILY Prescribed by: CARMEN SANCHEZ DO As needed Fentanyl Citrate (Fentanyl 0.05 mg/ml Vial) 100 Mcg/2 Ml Vial 25 MCG IVPUSH Q2H PRN PRN For Severe Pain Prescribed by: BARBARA FONG MD diphenhydrAMINE HCl (Diphenhydramine Inj) 50 Mg/1 Ml Vial 25 MG IVPUSH Q6H PRN PRN For Itching Prescribed by: BARBARA FONG MD Followup Plan Follow-up plan Patient will be under the Care of Doctor at [facility] Discharge Diet: Other (Comfort Care, soft diet) Discharge Activity: Other (Comfort Care) Patient Instructions Patient will need wound care. Patient will need suprapubic urine catheter. Time spent 30 min Carmen Sanchez DO March 31, 2017 11:43 Carmen Sanchez DO March 31, 2017 11:43
--- NOTE | 2017-03-31 13:07 | NUR ---
Faxed orders to [facility] and placed copy in chart. Arranged ALS For 1500 patient has Fentanyl drip currently running and will keep running through transport. Updated [employer]
--- NOTE | 2017-03-31 13:37 | NUR ---
Social Work-discharge: Data & assessment:EMR reviewed. Pt is on day 14 of hospitalization for perforated viscus per H&P. Pt is medically stable for discharge today. MAGO spoke with Elizabet at [facility] who confirms they have private room ready for pt today and have fentanyl drip in place. SW and UR specialist reviewed chart and feel like pt meets criteria to go ALS with fentanyl drip. ALS transport setup for 1500. SW updated [facility] and [facility]. SW updated pt's family and explained that SW cannot guarantee that insurance will cover the cost of transport, family agreeable to proceed. Pt has PICC line in place. RN,UC,pt/family, and [facility] all updated and agreeable to plan. Plan:Pt to discharge to [facility] today via ALS transport with fentanyl drip at 1500. RN,UC,pt/family, and [facility] all updated and agreeable to plan. BONY Crawford
--- NOTE | 2017-03-31 15:20 | NUR ---
Discharge Pt d/c'd to [facility] at approx 1520. Spoke to Layla for report at . Pt left via ALS w/ nephrostomy tube and LIZY drain in place fentanyl drip and bag of fluid w/ ALS drivers. left w/ pt's belongings. Periph IV d/c'd intac, PICC line patent
--- NOTE | 2017-03-31 16:27 | NUR ---
Late entry: Daughter Luis showed up post discharge demanding to rent a hospital bed from the hospital. [facility] explained [facility] does not rent hospital beds. [facility] provided her with list of DME companies and explained she can call these facilities. [facility] updated Sindy Grimes. Chely Lawson MSW
== END 2017-03-31 15:20 | DRG 326 ==
LOC: SED 18:50 → CCU 22:54 → PCC 03-19 14:05 → OSC 03-27 21:49
PROVIDERS: ADMIT Internal Medicine; ATTEND Internal Medicine
PROC: 30233N1 Transfusion of Nonautologous Red Blood Cells into Peripheral Vein, Percutaneous Approach (ICD-10-PCS; 2017-03-17)
PROC: 0DJ08ZZ Inspection of Upper Intestinal Tract, Via Natural or Artificial Opening Endoscopic (ICD-10-PCS; 2017-03-18)
PROC: 4A033R1 Measurement of Arterial Saturation, Peripheral, Percutaneous Approach (ICD-10-PCS; 2017-03-18)
PROC: 0DQ60ZZ Repair Stomach, Open Approach (ICD-10-PCS; principal; 2017-03-18 00:45)
PROC: 5A1945Z Respiratory Ventilation, 24-96 Consecutive Hours (ICD-10-PCS; 2017-03-18 00:45)
DX: K25.5 Chronic or unspecified gastric ulcer with perforation (principal); J96.01 Acute respiratory failure with hypoxia; E43 Unspecified severe protein-calorie malnutrition; C78.00 Secondary malignant neoplasm of unspecified lung; R64 Cachexia; Z68.1 Body mass index [BMI] 19.9 or less, adult; C79.51 Secondary malignant neoplasm of bone; D62 Acute posthemorrhagic anemia; R44.3 Hallucinations, unspecified; Z51.5 Encounter for palliative care; Z85.51 Personal history of malignant neoplasm of bladder; Z92.21 Personal history of antineoplastic chemotherapy; Z87.891 Personal history of nicotine dependence; Z66 Do not resuscitate; G89.3 Neoplasm related pain (acute) (chronic); L89.159 Pressure ulcer of sacral region, unspecified stage; R45.1 Restlessness and agitation; I12.9 Hypertensive chronic kidney disease with stage 1 through stage 4 chronic kidney disease, or unspecified chronic kidney disease; N18.3 Chronic kidney disease, stage 3 (moderate)